=== PATIENT | female | born 1945 | race African-American/Black ===

== ENCOUNTER 2016-09-16 21:23 | Inpatient (IN) | payer OTHER ==
[~2016-09-16] VITALS: Ht 170.2 cm; Wt 59.0 kg
--- NOTE | 2016-09-16 21:23 | NUR ---
PT AUDRA ALS. TAKEN TO BED 3
[2016-09-16] MEDS ORDERED: NACL 0.9% 1,000 ML IV ONE ×3 (21:55)
--- NOTE | 2016-09-16 21:58 | NUR ---
X-Ray at bedside.
[2016-09-16 22:10] VITALS: BP 120/77
[2016-09-16 22:16] LABS: HEMATOCRIT 54.9 % (36-48); HEMOGLOBIN 17.2 g/dL (12.0-16.0); MEAN CORPUSCULAR HEMOGLOBIN 30 pg (27-31); MEAN CORPUSCULAR HGB CONC 31 g/dL (33-37); MEAN CORPUSCULAR VOLUME 94 fL (80-94); PLATELET COUNT (AUTO) 193 K/uL (140-450); RED BLOOD CELL COUNT(AUTO) 5.81 MIL/uL (4.20-5.40); RED CELL DISTRIBUTION WIDTH 13.3 % (11.6-13.7); WHITE BLOOD COUNT (AUTO) 19.6 K/uL (4.8-10.8)
--- NOTE | 2016-09-16 22:20 | NUR ---
# 5 FR Urinary catheter inserted utilizing sterile technique. NO Immediate return of urine noted. Pt tolerated procedure WELL. ER NOTIFTED.
[2016-09-16 22:32] LABS: BAND % (MANUAL) 9 % (0-8); LYMPHOCYTES % (MANUAL) 2 % (20-46); MONOCYTES % (MANUAL) 8 % (5-12); NEUTROPHILS % (MANUAL) 81 (43-65); PLATELET ESTIMATE ADEQUATE
[2016-09-16 22:41] LABS: ALANINE AMINOTRANSFERASE 53 U/L (14-59); ALBUMIN 4.9 g/dL (3.4-5.0); ALKALINE PHOSPHATASE 102 U/L (46-116); ANION GAP 28.7 (8-16); ASPARTATE AMINOTRANSFERASE 53 U/L (15-37); CALCIUM 10.8 mg/dL (8.5-10.1); CARBON DIOXIDE 18.2 mmol/L (21-32); CHLORIDE 97 mmol/L (98-107); GLUCOSE 218 mg/dL (74-106); SODIUM SERUM 141 mmol/L (136-145); THYROID STIMULATING HORMONE 2.78 uIU/mL (0.34-3.74); TOTAL PROTEIN, SERUM 9.3 g/dL (6.4-8.2)
--- NOTE | 2016-09-16 22:41 | NUR ---
Dr. Lara evaluating patient at bedside.
[2016-09-16 22:54] LABS: POTASSIUM 2.9 mmol/L (3.5-5.1); UREA NITROGEN, BLOOD 63 mg/dL (7-18)
[2016-09-16 22:55] LABS: CREATININE 6.6 mg/dL (0.6-1.3)
--- NOTE | 2016-09-16 23:38 | NUR ---
PT RESTING IN BED, NO S/S OF DSITRESS NOTED, SINUS RHYTHM, AWAKE, ALERT AND ORIENTED X4, TALKING, ON MONITOR. UNABLE TO INSERT BAZAN CATH AFTER MULTIPLE ATTEMPS. ER MD AND CHARGE NURSE MADE AWARE.
--- NOTE | 2016-09-17 00:18 | NUR ---
Note joaquin in EDM - 09/17/16 at 0023 by MEDRJJ pt unable to give ua. er md notifted. apple juice, and water given, pt aaox4, vss, resp e/u. Patient noted to have existing wounds upon arrival to ER. Photos taken of wound and placed in chart. Wound covered with dressing. Physician informed.
--- NOTE | 2016-09-17 00:20 | NUR ---
pt unable to give ua. er notifted. apple juice, and water given, pt aaox4, vss, resp e/u.
--- NOTE | 2016-09-17 00:22 | NUR ---
PT RESTING IN BED, VSS, IN RA, NO S/S OF DISTRESS NOTED.
[2016-09-17] MEDS ORDERED: cefTRIAXone 1,000 MG VIAL ONE (00:54)
--- NOTE | 2016-09-17 01:02 | NUR ---
ADMITING PHYSICIAN EVALUATING PT AT BEDSIDE. AWAKE, AND TALKING. NO S/S OF DISTRESS NOTED AT THE MOMENT. ON SECURITY VEHICLE PATROL OFFICER, SINUS TACHY 114. DENIES ANY CHEST PAIN OR SOB.
--- NOTE | 2016-09-17 01:07 | NUR ---
Patient will be admitted to care of DR SHAIKH,. Admited to TELEMETRY. Will go to room 121B. Belongings list completed. Report to SIMRAN MORALES.
[2016-09-17] MEDS ORDERED: NICOTINE TRANSD SYS 21 MG/24 HR PATCH TD SCH (01:20)
[2016-09-17] MEDS ORDERED: LORazepam 1 MG TAB PO PRN (01:20)
[2016-09-17] MEDS ORDERED: KCL 20 MEQ/WATER INJ PREMIX 200 ML IV SCH (01:20)
[2016-09-17] MEDS ORDERED: POTASSIUM CHLORIDE 10 MEQ TABER PO SCH (01:20)
--- NOTE | 2016-09-17 01:23 | NUR ---
PT TRASFERRED TO TELEMRTY FLOOR VIA GURNEY, ACCOMPANIED BY RN AND EMT. NO S/S OF DISTRESS NOTED DURING TRASFER.
--- NOTE | 2016-09-17 01:25 | NUR ---
ADMITTED 70 YEARS OLD FEMALE FROM ER VIA WHEELCHAIR FROM HOME. ADMISSION ASSESSMENT AND HISTORY NURSING. ORIENTED TO ROOM AND UNIT ROUTINES. CARE BOARD UPDATED. PLAN OF CARE DISCUSSED WITH PATIENT, VERBALIZED UNDERSTANDING WELL. CALL LIGHT WITHIN REACH.
[2016-09-17] MEDS ORDERED: MORPHINE SULFATE 2 MG/ML SYR IVP PRN (01:45)
[2016-09-17] MEDS ORDERED: DOCUSATE SODIUM 100 MG GELCAP PO PRN (01:45)
[2016-09-17] MEDS ORDERED: HYDROcodone/APAP 7.5/325 MG 1 TAB PO PRN (01:45)
[2016-09-17] MEDS ORDERED: ONDANSETRON 4 MG/2 ML VIAL IM/IVP PRN (01:45)
[2016-09-17] MEDS ORDERED: ACETAMINOPHEN 325 MG TAB PO PRN (01:45)
[2016-09-17] MEDS ORDERED: HEPARIN PER PHARMACY MC PRN (01:45)
[2016-09-17] MEDS ORDERED: hePARIN / DEXT 5% PREMIX 250 ML IV SCH (01:45)
[2016-09-17 02:10] LABS: INR 1.2 (0.8-1.2); PARTIAL THROMBOPLASTIN TIME 24.5 secs (22-35.6); PROTHROMBIN TIME 11.8 secs (10.8-13.4)
[2016-09-17 02:22] LABS: AMYLASE 72 U/L (25-115); CHOL/HDL RATIO 3.7 (1-4.5); CHOLESTEROL 193 mg/dL (<200); FREE T4 (FREE THYROXINE) 1.18 ng/dL (0.76-1.46); HDL CHOLESTEROL 52 mg/dL (40-60); LDL (CALC) 99 mg/dL (60-100); LIPASE 249 U/L (73-393); MAGNESIUM 2.1 mg/dL (1.8-2.4); TRIGLYCERIDES 210 mg/dL (30-150)
[2016-09-17] MEDS: NACL 0.9% 1,000 ML IV SCH ×2 (02:27→20:56)
[2016-09-17 02:50] LABS: ALCOHOL, BLOOD < 3 mg/dL (<3); LACTATE DEHYDROGENASE 393 U/L (81-234)
[2016-09-17] MEDS ORDERED: PNEUMOCOCCAL VACCINE 23 MCG/0.5 ML VIAL IMVAC PRN (02:50)
[2016-09-17 02:51] LABS: THYROID STIMULATING HORMONE 2.78 uIU/mL (0.34-3.74)
[2016-09-17] MEDS ORDERED: LISINOPRIL 10 MG TAB PO SCH (03:00)
[2016-09-17] MEDS ORDERED: ALUMINUM HYD/MAG/SIMETHICONE 30 ML UDC PO PRN (03:00)
[2016-09-17] MEDS ORDERED: ZOLPIDEM 5 MG TAB PO PRN (03:00)
[2016-09-17] MEDS: SIMVASTATIN 20 MG TAB PO SCH ×2 (03:00→20:56)
[2016-09-17] MEDS ORDERED: METOPROLOL 25 MG TAB PO SCH (03:00)
[2016-09-17] MEDS ORDERED: ECOTRIN 81 MG TABEC PO SCH (03:00)
[2016-09-17] MEDS ORDERED: DEXTROSE 50% 50 ML SYR IVP PRN ×2 (03:45)
[2016-09-17] MEDS ORDERED: INSULIN HUMAN REGULAR 100 UNITS in NACL 0.9% 100 ML IV SCH (03:45)
[2016-09-17] MEDS ORDERED: INSULIN LISPRO SLIDING SCALE 100 UNITS/ML VIAL SUBQ PRN ×2 (03:45→04:20)
[2016-09-17] MEDS ORDERED: BLOOD GLUCOSE MONITORING 1 DEV DEV FS SCH ×2 (03:45→07:30)
[2016-09-17] MEDS ORDERED: PANTOPRAZOLE 40 MG INJ VIAL IVP SCH (03:55)
[2016-09-17 04:11] VITALS: BP 145/76
[2016-09-17] MEDS ORDERED: POTASSIUM CHLORIDE 20% 40 MEQ/15 ML UDC PO SCH (04:35)
[2016-09-17] MEDS: LORazepam 1 MG TAB PO SCH ×3 (04:40→20:56)
[2016-09-17] MEDS ORDERED: PIPERACILLIN/TAZOBACTAM 2.25 GM VIAL IV ONE (05:36)
[2016-09-17] MEDS: BLOOD GLUCOSE MONITORING 1 DEV DEV FS SCH ×4 (05:55→21:01)
[2016-09-17] MEDS: PIPER/TAZO 2.25GM/D5W PREMIX 50 ML IV SCH ×4 (05:59→23:44)
[2016-09-17 06:16] LABS: HEMATOCRIT 48.1 % (36-48); HEMOGLOBIN 15.4 g/dL (12.0-16.0); MEAN CORPUSCULAR HEMOGLOBIN 30 pg (27-31); MEAN CORPUSCULAR HGB CONC 32 g/dL (33-37); MEAN CORPUSCULAR VOLUME 95 fL (80-94); PLATELET COUNT (AUTO) 164 K/uL (140-450); RED BLOOD CELL COUNT(AUTO) 5.06 MIL/uL (4.20-5.40); RED CELL DISTRIBUTION WIDTH 13.2 % (11.6-13.7)
--- NOTE | 2016-09-17 06:50 | NUR ---
CALLED DR. FOURNIER-RESIDENT, PATIENT HAVING LOOSE BM WITH DROPS OF BLOOD IN BEDPAN NOTED. HOLD HEPARIN FOR NOW.
[2016-09-17 07:07] LABS: ANION GAP 20.8 (8-16); CALCIUM 8.5 mg/dL (8.5-10.1); CARBON DIOXIDE 22.5 mmol/L (21-32); CHLORIDE 101 mmol/L (98-107); GLUCOSE 163 mg/dL (74-106); POTASSIUM 4.3 mmol/L (3.5-5.1); SODIUM SERUM 140 mmol/L (136-145)
[2016-09-17 07:25] LABS: UREA NITROGEN, BLOOD 61 mg/dL (7-18)
--- NOTE | 2016-09-17 07:29 | NUR ---
ENDORSED CARE AT BEDSIDE WITH DRAGAN KHALIL, PATIENT IN STABLE CONDITION.
--- NOTE | 2016-09-17 07:29 | NUR ---
RECEIVED PATIENT REPORT AT BEDSIDE FROM NIGHT NURSE. PATIENT IS ABLE TO FOLLOW COMMANDS AND IS AAOX4. PATIENT SHOWS NO S/S OF DISTRESS ON ROOM AIR. IV TO LT AC IVF'S INFUSING WELL AND L H SL. PATIENT SKIN IS INTACT WITH RASH TO THE BACK AND REDNESS. SAFETY PRECAUTIONS ENFORCED. EXPLAINED PLAIN OF CARE TO PATIENT. PATIENT VERBALIZED UNDERSTANDING. PATIENT ON TELE MONITORING. PATIENT BED IS LOWERED WITH CALL LIGHT WITHIN REACH. WILL CONTINUE TO MONITOR
[2016-09-17 07:51] LABS: MAGNESIUM 2.3 mg/dL (1.8-2.4); PHOSPHORUS 4.3 mg/dL (2.5-4.9)
[2016-09-17 07:57] LABS: BAND % (MANUAL) 8 % (0-8); NEUTROPHILS % (MANUAL) 84 (43-65)
[2016-09-17 07:58] LABS: LYMPHOCYTES % (MANUAL) 5 % (20-46); MONOCYTES % (MANUAL) 3 % (5-12); PLATELET ESTIMATE ADEQUATE
[2016-09-17 08:00] VITALS: BP 98/54
--- NOTE | 2016-09-17 08:00 | NUR ---
PER LANDING SCALER PATIENT IS VERY WEAK WHEN ASSISTING TO THE BSC. WILL ASSESS AMB ON NEXT BM.
--- NOTE | 2016-09-17 08:30 | NUR ---
PATIENT STATES SHE HAS NO URINATED IN 5 DAYS AND SAYS SHE FEELS THE URGE TO GO BUT HAS NO BEEN ABLE TO. PATIENT ASSISTED ON THE BED [place]. WILL CONTINUE TO MONITOR.
--- NOTE | 2016-09-17 08:52 | NUR ---
PATIENT HAS BEEN SCREENED AND CATEGORIZED HIGH NUTRITION RISK. PATIENT WILL BE SEEN WITHIN 1-2 DAYS OF ADMISSION. 09/17/16-09/18/[address]
[2016-09-17] MEDS ORDERED: THIAMINE 100 MG TAB PO SCH (09:00)
[2016-09-17] MEDS ORDERED: MULTIVITAMIN 1 TAB PO SCH (09:00)
[2016-09-17] MEDS ORDERED: FOLIC ACID 1 MG TAB PO SCH (09:00)
[2016-09-17] MEDS: LACTOBACILLUS RHAMNOSUS GG 1 EACH CAP PO SCH (09:06)
[2016-09-17] MEDS: CALCIUM ACETATE 667 MG TAB PO SCH ×2 (09:06→17:02)
--- NOTE | 2016-09-17 09:06 | NUR ---
ADMINISTERED SCHEDULED MEDICATIONS. PATIENT TOLERATED ACTIVITY WELL. PT BLOOD PRESSURE IS 98/54. WILL CONTINUE TO MONITOR.
[2016-09-17] MEDS: ESCITALOPRAM 20 MG TAB PO SCH (09:07)
[2016-09-17] MEDS: VIT-B COMP/VIT-C/FOLIC ACID 1 TAB PO SCH (09:07)
--- NOTE | 2016-09-17 09:30 | NUR ---
PATIENT ASSISTED TO THE BSC. PATIENT HAS LOOSE STOOL AND NOTICEABLE BLOOD. WILL NOTIFY DR. FOURNIER.
[2016-09-17 09:36] LABS: INR 1.2 (0.8-1.2); PROTHROMBIN TIME 11.9 secs (10.8-13.4)
[2016-09-17 09:50] LABS: PARTIAL THROMBOPLASTIN TIME 110.5 secs (22-35.6)
--- NOTE | 2016-09-17 11:30 | NUR ---
PATIENT BEING SEEN BY FIELD ENGINEER. PATIENT SHOWS NO S/S OF DISTRESS ON ROOM AIR.
[2016-09-17 12:00] VITALS: BP 99/49
--- NOTE | 2016-09-17 12:22 | NUR ---
09/17/16 RD INITIAL ASSESSMENT COMPLETED PLEASE REFER TO NUTRITION ASSESSMENT UNDER CARE ACTIVITY FOR ESTIMATED NUTRITIONAL NEEDS. 1. CONTINUE MECHANICAL SOFT, 60GM CONSISTENT CARBOHYDRATE DIET 2. RECOMMEND HEALTHSHAKE BID DURING MEAL TIMES 3. RD TO FOLLOW-UP 2-3 DAYS; HIGH RISK TAL SAUL, CRYSTAL
--- NOTE | 2016-09-17 12:45 | NUR ---
PATIENT SEEN BY DR FOURNIER. DR AWARE OF LOW BP ORDERS TO CONTINUE MONITORING. PATIENTS SHOWS NO S/S OF DISTRESS ON ROOM AIR. WILL CONTINUE TO MONITOR.
[2016-09-17 12:51] LABS: INR 1.1 (0.8-1.2); PARTIAL THROMBOPLASTIN TIME 31.9 secs (22-35.6); PROTHROMBIN TIME 11.3 secs (10.8-13.4)
--- NOTE | 2016-09-17 13:30 | NUR ---
PT BP 101/49 WILL CONTINUE TO MONITOR.
--- NOTE | 2016-09-17 14:53 | NUR ---
PATIENT IS SLEEPING AND SHOW NO S/S OF DISTRESS ON ROOM AIR. WILL CONTINUE TO MONITOR.
[2016-09-17 16:00] VITALS: BP 104/48
--- NOTE | 2016-09-17 17:15 | NUR ---
PT IS SLEEPING AND SHOWS NO S/S OF DISTRESS ON ROOM AIR. PATIENT IS EASILY AROUSABLE.
[2016-09-17 18:50] LABS: INR 1.1 (0.8-1.2); PARTIAL THROMBOPLASTIN TIME 25.8 secs (22-35.6)
--- NOTE | 2016-09-17 19:15 | NUR ---
RECEIVED REPORT FROM SIMRAN BOURNE. INITIAL ASSESSMENT COMPLETED. PT AAOX4. PT HAS REDNESS ON SACRAL AREA. PT HAS IV ON LEFT AC G 20; INFUSING FLUIDS WELL. PT HAS USES BEDSIDE COMMODE WITH ASSISTANCE. PT ORIENTED PT TO ROOM AND SURROUNDINGS AND USE OF CALL LIGHT. EXPLAINED PLAN OF CARE TO PT AND SHE VERBALIZES UNDERSTANDING. CALL LIGHT WITHIN REACH.
--- NOTE | 2016-09-17 19:25 | NUR ---
PT WAS ASSISTED TO THE BSC. PT IS AWARE TO USE CALL LIGHT WHEN DONE. IV ON THE L H WITH IVF'S INFUSING WELL. PATIENT REPORT WAS GIVEN AT BEDSIDE TO NIGHT NURSE. PATIENT ENDORSED IN STABLE CONDITION.
[2016-09-17 20:00] VITALS: BP 117/61
[2016-09-17] MEDS: MINERAL OIL TP SCH (20:58)
[2016-09-17] MEDS: [UNRECOGNIZED DRUG - OTHER] TP SCH (20:58)
[2016-09-17] MEDS ORDERED: MINERAL OIL/PETROLIUM 57 GM TUBE TP SCH (21:00)
[2016-09-17] MEDS ORDERED: OXYBUTYNIN 5 MG TAB PO SCH (21:00)
--- NOTE | 2016-09-17 21:04 | NUR ---
PT TOLERATED 2100 MEDS WELL. WILL CONTINUE TO MONITOR PT.
--- NOTE | 2016-09-17 21:50 | NUR ---
PT HAS SCDS ON.
--- NOTE | 2016-09-17 23:56 | NUR ---
0000 ZOSYN INFUSING NOW. PT STABLE, WILL CONTINUE TO MONITOR PT.
[2016-09-18] VITALS: BP 105/51
--- NOTE | 2016-09-18 00:34 | NUR ---
THERE IS AN ORDER FOR INSERTING A BAZAN CATHETER. I TRIED ALONG WITH EXTENSION SERVICE SPECIALIST IN CHARGE TO INSERT BAZAN CATHETER BUT THERE IS RESISTANCE AND BAZAN CATHETER WOULD NOT GO IN. DR. ARCHER AWARE. NO NEW ORDERS. WILL CONTINUE TO MONITOR PT.
--- NOTE | 2016-09-18 00:38 | NUR ---
UNABLE TO COLLECT URINE DUE TO PT NOT VOIDING; AND UNABLE TO PLACED IN BAZAN CATHETER DUE TO RESISTANCE.
[2016-09-18 00:45] LABS: INR 1.1 (0.8-1.2); PROTHROMBIN TIME 11.3 secs (10.8-13.4)
[2016-09-18 00:46] LABS: PARTIAL THROMBOPLASTIN TIME 26.5 secs (22-35.6)
--- NOTE | 2016-09-18 02:49 | NUR ---
PT STATED THAT SHE HAD THE URGE TO VOID, PROVIDED HER WITH BEDPAN BUT DID NOT VOID. PT HAD A SMALL WATERY BOWEL MOVEMENT. PROVIDED JAN CARE, WILL CONTINUE TO MONITOR PT.
[2016-09-18 04:00] VITALS: BP 111/63
--- NOTE | 2016-09-18 04:23 | NUR ---
CHECKED ON PT. 0400 VS STABLE. PT DENIES DISCOMFORT OR PAIN. CALL LIGHT WITHIN REACH.
[2016-09-18] MEDS: PIPER/TAZO 2.25GM/D5W PREMIX 50 ML IV SCH (05:17)
[2016-09-18] MEDS: LORazepam 1 MG TAB PO SCH ×3 (05:18→20:18)
--- NOTE | 2016-09-18 05:20 | NUR ---
AM MEDS GIVEN. PT'S LINEN CHANGED. PT HELPED TO REPOSITION FOR COMFORT. WILL CONTINUE TO MONITOR PT.
[2016-09-18] MEDS: BLOOD GLUCOSE MONITORING 1 DEV DEV FS SCH ×4 (06:21→20:20)
[2016-09-18 07:07] LABS: HEMATOCRIT 37.5 % (36-48); HEMOGLOBIN 12.3 g/dL (12.0-16.0); MEAN CORPUSCULAR HEMOGLOBIN 31 pg (27-31); MEAN CORPUSCULAR HGB CONC 33 g/dL (33-37); MEAN CORPUSCULAR VOLUME 95 fL (80-94); PLATELET COUNT (AUTO) 138 K/uL (140-450); RED BLOOD CELL COUNT(AUTO) 3.97 MIL/uL (4.20-5.40); RED CELL DISTRIBUTION WIDTH 13.2 % (11.6-13.7); WHITE BLOOD COUNT (AUTO) 10.1 K/uL (4.8-10.8)
[2016-09-18 07:15] LABS: ANION GAP 15.1 (8-16); CALCIUM 8.2 mg/dL (8.5-10.1); CARBON DIOXIDE 22.4 mmol/L (21-32); CHLORIDE 106 mmol/L (98-107); CREATININE 3.7 mg/dL (0.6-1.3); GLUCOSE 91 mg/dL (74-106); POTASSIUM 3.5 mmol/L (3.5-5.1); SODIUM SERUM 140 mmol/L (136-145); UREA NITROGEN, BLOOD 56 mg/dL (7-18)
--- NOTE | 2016-09-18 07:25 | NUR ---
ENDORSED PLAN OF CARE TO DAY SHIFT NURSE. PT IN STABLE CONDITION.
--- NOTE | 2016-09-18 07:26 | NUR ---
RECEIVED PT FROM MALTED MILK MASHER NURSE AT BEDSIDE. PT IS SLEEPING. PT HAS IV ON L AC 20G RUNNING NS@120 AND L HAND 22 G SL. PT HAS SCDS ON. PT HAS A BEDSIDE COMMODE. BED ALARM ON. CALL LIGHT WITHIN REACH. WILL CONTINUE TO MONITOR.
[2016-09-18 07:29] LABS: BAND % (MANUAL) 4 % (0-8); LYMPHOCYTES % (MANUAL) 15 % (20-46); MONOCYTES % (MANUAL) 9 % (5-12); NEUTROPHILS % (MANUAL) 72 (43-65)
[2016-09-18 08:00] VITALS: BP 92/45
[2016-09-18 08:17] LABS: HEMOGLOBIN A1C 5.1 % (4.8-5.6); T4 (THYROXINE) 6.5 ug/dL (4.5-12.0)
[2016-09-18] MEDS ORDERED: TAMSULOSIN 0.4 MG CAP PO SCH (08:30)
[2016-09-18] MEDS: MULTIVIT/MIN/CA/FE/FA 1 TAB PO SCH (09:22)
[2016-09-18] MEDS: NICOTINE TRANSD SYS 21 MG/24 HR PATCH TD SCH (09:22)
[2016-09-18] MEDS: LACTOBACILLUS RHAMNOSUS GG 1 EACH CAP PO SCH (09:23)
[2016-09-18] MEDS: ESCITALOPRAM 20 MG TAB PO SCH (09:23)
[2016-09-18] MEDS: FOLIC ACID 1 MG TAB PO SCH (09:24)
[2016-09-18] MEDS: ASPIRIN 81 MG TAB.CHEW PO SCH (09:24)
[2016-09-18] MEDS: THIAMINE 100 MG TAB PO SCH (09:25)
[2016-09-18] MEDS: VIT-B COMP/VIT-C/FOLIC ACID 1 TAB PO SCH (09:25)
[2016-09-18] MEDS: NACL 0.9% 1,000 ML IV SCH ×3 (09:25→22:24)
[2016-09-18] MEDS: MINERAL OIL TP SCH ×2 (09:26→20:18)
[2016-09-18] MEDS: [UNRECOGNIZED DRUG - OTHER] TP SCH ×2 (09:26→20:18)
--- NOTE | 2016-09-18 09:30 | NUR ---
HELPED PT USE BEDSIDE COMMODE. PT GAIT WEAK BUT TOLERATED WELL. STILL HAS DIARRHEA. CALL LIGHT WITHIN REACH. WILL CONTINUE TO MONITOR.
[2016-09-18] MEDS ORDERED: Z-GUARD PASTE TP PRN (10:15)
--- NOTE | 2016-09-18 10:30 | NUR ---
BLADDER SCAN 418ML.
--- NOTE | 2016-09-18 11:30 | NUR ---
BLADDER SCAN [address] FOURNIER IS AWARE.
[2016-09-18 12:00] VITALS: BP 107/55
--- NOTE | 2016-09-18 12:56 | NUR ---
PT GOT UP TO USE BEDSIDE COMMODE. TOLERATED WELL. CALL LIGHT WITHIN REACH. WILL CONTINUE TO MONITOR.
[2016-09-18] MEDS ORDERED: PIPER/TAZO 2.25GM/D5W PREMIX 50 ML IV SCH (13:00)
--- NOTE | 2016-09-18 14:29 | NUR ---
PHYSICAL THERAPY WORKED WITH PT. PT TOLERATED WELL. CALL LIGHT WITHIN REACH. WILL CONTINUE TO MONITOR.
[2016-09-18 16:00] VITALS: BP 95/50
--- NOTE | 2016-09-18 16:00 | NUR ---
PT STOOD UP WITHOUT USING CALL CORDERO. BED ALARM WENT OFF. HELPED PT TO BEDSIDE COMMODE. REEDUCATED PT IN USING CALL LIGHT. PT VERBALIZED UNDERSTANDING. WILL MONITOR CLOSELY.
--- NOTE | 2016-09-18 16:30 | NUR ---
PHYSICAL THERAPY CO-SIGN The Physical Therapy Progress Notes documented by Transcription have been reviewed. Reviewed/Co-Signed by: Bita Wei PT Documentation Done by:PEREZ BIRD LEATHER STITCHER POC REVIEWED W/ LEATHER STITCHER; PROGRESS DEANGELO; WILL BENEFIT W/ P.T. AFTER ACUTE STAY. Addendum: 09/18/16 at 1630 by Bita Wei PT Amended: Links added.
--- NOTE | 2016-09-18 18:13 | NUR ---
PT IS RESTING IN BED COMFORTABLY. NO COMPLAINTS AT THIS TIME. CALL LIGHT WITHIN REACH. WILL CONTINUE TO MONITOR.
--- NOTE | 2016-09-18 19:25 | NUR ---
RECEIVED REPORT FROM SIMRAN OCONNOR. INITIAL ASSESSMENT COMPLETED. PT AAOX4. PT HAS REDNESS ON SACRAL AREA. PT HAS IV ON LEFT AC G 20; INFUSING FLUIDS WELL. PT HAS SCDS ON. PT USES BEDSIDE COMMODE WITH ASSISTANCE. ORIENTED PT TO ROOM AND SURROUNDINGS AND USE OF CALL LIGHT. SAFETY/FALL RISK PRECAUTIONS IN PLACE. PT EATING DINNER AT THIS TIME. EXPLAINED PLAN OF CARE TO PT AND SHE VERBALIZES UNDERSTANDING. CALL LIGHT WITHIN REACH.
--- NOTE | 2016-09-18 19:34 | NUR ---
ENDORSED CARE OF PT TO HAND RUG CLEANER NURSE AT BEDSIDE. PT IN STABLE CONDITION.
[2016-09-18 20:00] VITALS: BP 109/61
[2016-09-18] MEDS: SIMVASTATIN 20 MG TAB PO SCH (20:18)
--- NOTE | 2016-09-18 20:20 | NUR ---
PT TOLERATED 2100 MEDS WELL, CALL LIGHT WITHIN REACH.
--- NOTE | 2016-09-18 22:04 | NUR ---
DR. KAT AT BEDSIDE. DR. KAT PUT IN A BAZAN CATHETER. PT TOLERATED IT WELL. URINE COLLECTED AND SENT TO LAB. WILL CONTINUE TO MONITOR PT. Addendum: 09/19/16 at 0000 by Stephani Bland RN DR. KAT INSERTED A 16 F BAZAN CATHETER; URINE RETURN NOTICED OF 300 ML. WILL CONTINUE TO MONITOR PT.
[2016-09-18 22:33] LABS: APPEARANCE,URINE SL CLOUDY (CLEAR); BILIRUBIN,URINE 1+ (NEGATIVE); BLOOD, URINE 2+ (NEGATIVE); COLOR,URINE YELLOW (YELLOW); LEUKOCYTE ESTERASE ,URINE NEGATIVE (NEGATIVE); NITRITE, URINE NEGATIVE (NEGATIVE); PROTEIN,URINE TRACE (NEGATIVE); UGLUCOSE NEGATIVE (NEGATIVE); UROBILINOGEN,URINE 0.2 EU/dL (0.2 - 1)
[2016-09-18 22:42] LABS: AMPHETAMINE, URINE NEG. ng/ml (NEG <=1000); BARBITURATE, URINE NEG. ng/ml (NEG <=200); BENZODIAZEPINE, URINE NEG. ng/mL (NEG <=200); CANNABINOID, URINE NEG. ng/mL (NEG <=50); COCAINE, URINE NEG. ng/mL (NEG <=300); OPIATE, URINE NEG. ng/mL (NEG <=2000); PHENCYCLIDINE SCREEN,URINE NEG. ng/mL (NEG <=25)
--- NOTE | 2016-09-18 23:56 | NUR ---
CHECKED VS; PT STABLE, PT DENIES PAIN/DISCOMFORT PT HAS 600ML OF URINE IN THE BAZAN BAG. WILL CONTINUE TO MONITOR PT.
[2016-09-19] VITALS: BP 120/63
[2016-09-19 00:06] LABS: ICTOTEST NEGATIVE (NEGATIVE)
[2016-09-19 00:07] LABS: BACTERIA,URINE None Seen /HPF (None Seen); MUCUS,URINE 2+ /LPF (None Seen); RBC,URINE 0-5 (RARE) /HPF (0-5); SQUAMOUS EPITHELIAL CELL,UR 0-3 (FEW) /LPF (0-3 (FEW)); URINE AMORPHOUS URATE 1+ /HPF (None Seen); WBC,URINE 0-5 (RARE) /HPF (0-5)
--- NOTE | 2016-09-19 01:25 | NUR ---
PT SLEEPING COMFORTABLY NO SIGNS OF DISTRESS NOTED. WILL CONTINUE TO MONITOR PT.
--- NOTE | 2016-09-19 03:30 | NUR ---
PT REQUESTING A BLANKET; SHE STATED THAT SHE IS COLD. TOOK HER TEMPERATURE AND IT IS 98.3. WILL CONTINUE TO MONITOR PT.
[2016-09-19 04:00] VITALS: BP 118/65
[2016-09-19 05:51] LABS: BASOPHILS # (AUTO) 0.3 K/uL (0.00-0.22); BASOPHILS % (AUTO) 3.6 % (0.0-2.0); EOSINOPHILS # (AUTO) 0.1 K/uL (0-0.4); EOSINOPHILS % (AUTO) 1.2 % (0.0-4.0); HEMATOCRIT 34.9 % (36-48); HEMOGLOBIN 10.9 g/dL (12.0-16.0); LYMPHOCYTES # (AUTO) 1.9 K/uL (2.5-16.5); LYMPHOCYTES % (AUTO) 20.7 % (20.5-51.1); MEAN CORPUSCULAR HEMOGLOBIN 30 pg (27-31); MEAN CORPUSCULAR HGB CONC 31 g/dL (33-37); MEAN CORPUSCULAR VOLUME 96 fL (80-94); MONOCYTES # (AUTO) 0.7 K/uL (0.8-1.0); MONOCYTES % (AUTO) 7.9 % (1.7-9.3); NEUTROPHILS # (AUTO) 6.3 K/uL (1.8-7.7); NEUTROPHILS % (AUTO) 66.6 % (42.2-75.2); PLATELET COUNT (AUTO) 150 K/uL (140-450); RED BLOOD CELL COUNT(AUTO) 3.65 MIL/uL (4.20-5.40); RED CELL DISTRIBUTION WIDTH 13.3 % (11.6-13.7); WHITE BLOOD COUNT (AUTO) 9.3 K/uL (4.8-10.8)
[2016-09-19] MEDS: NACL 0.9% 1,000 ML IV SCH ×3 (06:00→17:41)
[2016-09-19] MEDS: LORazepam 1 MG TAB PO SCH ×3 (06:00→20:59)
--- NOTE | 2016-09-19 06:02 | NUR ---
PT TOLERATED MORNING MED WELL. WILL CONTINUE TO MONITOR PT.
[2016-09-19 06:04] LABS: ANION GAP 13.4 (8-16); CALCIUM 7.7 mg/dL (8.5-10.1); CHLORIDE 112 mmol/L (98-107); CREATININE 1.8 mg/dL (0.6-1.3); GLUCOSE 81 mg/dL (74-106); POTASSIUM 3.4 mmol/L (3.5-5.1); SODIUM SERUM 143 mmol/L (136-145); UREA NITROGEN, BLOOD 37 mg/dL (7-18)
[2016-09-19 06:09] LABS: MAGNESIUM 1.8 mg/dL (1.8-2.4); PHOSPHORUS 2.4 mg/dL (2.5-4.9)
--- NOTE | 2016-09-19 07:50 | NUR ---
ENDORSED PLAN OF CARE TO SIMRAN OCONNOR. BRII IN STABLE CONDITION.
[2016-09-19] MEDS: BLOOD GLUCOSE MONITORING 1 DEV DEV FS SCH ×4 (07:51→21:07)
--- NOTE | 2016-09-19 07:51 | NUR ---
RECEIVED CARE OF PT FROM PSYCHIATRY PHYSICIAN NURSE AT BEDSIDE. PT IS SLEEPING. PT HAS BAZAN CATH IN PLACE. PT HAS IV ON L AC 20G SL AND L HAND 22 G RUNNING NS@150ML/HR. NO DISTRESS NOTED. BED ALARM ON. SCDS ON. CALL LIGHT WITHIN REACH. WILL CONTINUE TO MONITOR.
[2016-09-19 08:00] VITALS: BP 126/62
[2016-09-19] MEDS: LACTOBACILLUS RHAMNOSUS GG 1 EACH CAP PO SCH (08:56)
[2016-09-19] MEDS: VIT-B COMP/VIT-C/FOLIC ACID 1 TAB PO SCH (08:56)
[2016-09-19] MEDS: MULTIVIT/MIN/CA/FE/FA 1 TAB PO SCH (08:56)
[2016-09-19] MEDS: ESCITALOPRAM 20 MG TAB PO SCH (08:57)
[2016-09-19] MEDS: FOLIC ACID 1 MG TAB PO SCH (08:58)
[2016-09-19] MEDS: ASPIRIN 81 MG TAB.CHEW PO SCH (08:58)
[2016-09-19] MEDS: NICOTINE TRANSD SYS 21 MG/24 HR PATCH TD SCH (08:58)
[2016-09-19] MEDS: MINERAL OIL TP SCH ×2 (08:58→21:00)
[2016-09-19] MEDS: THIAMINE 100 MG TAB PO SCH (08:58)
[2016-09-19] MEDS: [UNRECOGNIZED DRUG - OTHER] TP SCH ×2 (08:58→21:00)
--- NOTE | 2016-09-19 09:20 | NUR ---
PT TOLERATED MORNING MEDS WELL. NO COMPLAINTS AT THIS TIME. CALL LIGHT WITHIN REACH. WILL CONTINUE TO MONITOR.
[2016-09-19 09:26] LABS: APPEARANCE,URINE CLEAR (CLEAR); BILIRUBIN,URINE NEGATIVE (NEGATIVE); BLOOD, URINE 3+ (NEGATIVE); COLOR,URINE YELLOW (YELLOW); LEUKOCYTE ESTERASE ,URINE NEGATIVE (NEGATIVE); NITRITE, URINE NEGATIVE (NEGATIVE); PH,URINE 5.5 (5.0-9.0); PROTEIN,URINE NEGATIVE (NEGATIVE); UGLUCOSE NEGATIVE (NEGATIVE); UROBILINOGEN,URINE 0.2 EU/dL (0.2 - 1)
[2016-09-19 09:35] LABS: RBC,URINE 20-25 /HPF (0-5); WBC,URINE 0-5 (RARE) /HPF (0-5)
[2016-09-19 09:36] LABS: BACTERIA,URINE OCCASSIONAL /HPF (None Seen); MUCUS,URINE RARE /LPF (None Seen); SQUAMOUS EPITHELIAL CELL,UR 0-3 (FEW) /LPF (0-3 (FEW))
--- NOTE | 2016-09-19 10:41 | NUR ---
SPOKE WITH PATIENT'S SON, LISA. HE SAID THE PATIENT SIGNS FOR HERSELF AND IS IN AGREEMENT FOR PATIENT TO GO TO SNF IF NEEDED. HE SAID HE HAD NO PERFERENCE. HE SAID HIS SISTER, LORI , IS LOOKING TO GET THE PATIENT A SECONDARY INSURANCE.
[2016-09-19] MEDS ORDERED: POTASSIUM CHL 40 MEQ/ D5-1/2NS 1,000 ML IV SCH (10:45)
--- NOTE | 2016-09-19 11:03 | NUR ---
HELPED PT USE BEDSIDE COMMODE. CALL LIGHT WITHIN REACH. WILL CONTINUE TO MONITOR.
--- NOTE | 2016-09-19 11:40 | NUR ---
Social Service Note: I met with patient at bedside to discuss discharge plan. She stated she is in agreement with short term placement for physical therapy. I inquired if she had a snf preference, she stated she preferred a snf located in [place], [place] with small number of beds, I informed her [facility] has 58 beds in their facility and would contact them. She verbalized understanding and thanked me.
[2016-09-19 12:00] VITALS: BP 129/65
[2016-09-19] MEDS: SODIUM PHOS / POTASSIUM PHOS 1 PKT PDR PO SCH ×2 (12:01→17:40)
[2016-09-19] MEDS ORDERED: KCL 20 MEQ/WATER INJ PREMIX 200 ML IV SCH (12:30)
--- NOTE | 2016-09-19 13:00 | NUR ---
PT SAT UP IN BED TO EAT LUNCH. TOLERATED WELL. CALL LIGHT WITHIN REACH. WILL CONTINUE TO MONITOR.
--- NOTE | 2016-09-19 13:41 | NUR ---
Social Service Note: Per Sugar from [facility] , patient has been accepted, she stated she is going to come and meet patient today. I met with patient at bedside, informed her she has been accepted at [facility] and inquired if it would be okay to have admission coordinator Sugar from [facility] meet with her, she stated she would like to meet with Sugar.
--- NOTE | 2016-09-19 13:48 | NUR ---
09/19/16 RD FOLLOW-UP ASSESSMENT COMPLETED PLEASE REFER TO NUTRITION ASSESSMENT UNDER CARE ACTIVITY FOR ESTIMATED NUTRITIONAL NEEDS. 1. CONTINUE 60G CONSISTENT CARBOHYDRATE, MECHANICAL SOFT DIET + DIET HEALTH SHAKE TID 2. RD TO FOLLOW-UP 3-5 DAYS; MODERATE RISK TAL SAUL, CRYSTAL
--- NOTE | 2016-09-19 15:00 | NUR ---
PT IS RESTING COMFORTABLY IN BED. NO DISTRESS NOTED. CALL LIGHT WITHIN REACH. WILL CONTINUE TO MONITOR.
[2016-09-19 16:00] VITALS: BP 137/65
--- NOTE | 2016-09-19 16:30 | NUR ---
PT'S SON CAME TO VISIT. CALL LIGHT WITHIN REACH. WILL CONTINUE TO MONITOR.
--- NOTE | 2016-09-19 17:59 | NUR ---
PT SAT UP IN BED TO EAT DINNER. TOLERATING WELL. CALL LIGHT WITHIN REACH. WILL CONTINUE TO MONITOR.
--- NOTE | 2016-09-19 19:30 | NUR ---
ENDORSED CARE OF PT TO HOT WOUND SPRING PRODUCTION SUPERVISOR NURSE AT BEDSIDE. PT IN STABLE CONDITION.
--- NOTE | 2016-09-19 19:31 | NUR ---
RECEIVED REPORT FROM AM NURSE. PT RESTING IN BED, AOX4, ABLE TO VERBALIZE NEEDS. PT DENIES CHEST PAIN, SOB OR S/S OF ACUTE DISTRESS. PT HAS BEDSIDE COMMODE, PT REPORTS HAVING FREQ DIARRHEA. LEAD MEDICAL TECHNOLOGIST IN PLACE. BAZAN CATH IN PLACE, DRAINING CLEAR BROOKE URINE. REDNESS NOTED ON JAN AREA, WILL APPLY Z-GUARD. IV ACCESS ASYMPTOMATIC, PATENT AND INTACT. IVF INFUSING WELL. DISCUSSED AND REVIEWED PLAN OF CARE WITH PT. PT VERBALIZED UNDERSTANDING. SAFETY MEASURES ENSURED. CALL LIGHT WITHIN REACH. WILL CONTINUE TO MONITOR.
[2016-09-19 20:00] VITALS: BP 136/67
[2016-09-19] MEDS: SIMVASTATIN 20 MG TAB PO SCH (20:59)
--- NOTE | 2016-09-19 21:00 | NUR ---
PT C/O PAIN AND DISCOMFORT AT JAN AREA AND BAZAN SITE. BAZAN CATH IS ASYMPTOMATIC, DRAINING CLEAR BROOKE URINE WELL. ADMINISTERED TYLENOL ORDERED. PT VERBALIZED UNDERSTANDING, TOLERATED WELL.
--- NOTE | 2016-09-19 21:07 | NUR ---
BLOOD SUGAR 78, CONDITION STABLE, NO S/S OF HYPOGLYCEMIA. EVENING SNACKS AND JUICE PROVIDED. ADMINISTERED DUE MEDICATIONS WITH EDUCATION. PT VERBALIZED UNDERSTANDING. ASSISTED PT TO BEDSIDE COMMODE. PT ABLE TO AMBULATE TO BEDSIDE COMMODE WITH 1 PERSON ASSIST AND MODERATE ASSISTANCE. ASSISTED BACK TO BED, TOLERATED WELL. ALL NEEDS MET. IVF INFUSING WELL. SAFETY MEASURES ENSURED. CALL LIGHT WITHIN REACH. WILL CONTINUE TO MONITOR.
[2016-09-20] VITALS: BP 134/68
[2016-09-20] MEDS: SODIUM PHOS / POTASSIUM PHOS 1 PKT PDR PO SCH ×4 (00:02→17:06)
--- NOTE | 2016-09-20 00:02 | NUR ---
ADMINISTERED DUE MEDICATION WITH EDUCATION. PT VERBALIZED UNDERSTANDING, TOLERATED MED WELL. SAFETY MEASURES ENSURED. CALL LIGHT WITHIN REACH.
[2016-09-20] MEDS: NACL 0.9% 1,000 ML IV SCH ×2 (00:40→09:14)
--- NOTE | 2016-09-20 00:40 | NUR ---
PT C/O INSOMNIA. ADMINISTERED AMBIEN ORDERED WITH EDUCATION. PT VERBALIZED UNDERSTANDING, TOLERATED MED WELL. SAFETY MEASURES ENSURED. CALL LIGHT WITHIN REACH.
[2016-09-20 04:00] VITALS: BP 147/69
[2016-09-20] MEDS: LORazepam 1 MG TAB PO SCH ×3 (04:48→20:11)
--- NOTE | 2016-09-20 04:48 | NUR ---
PT SLEEPING, BUT AROUSABLE. ADMINISTERED SCHEDULED ATIVAN PO WITH EDUCATION. PT VERBALIZED UNDERSTANDING, TOLERATED WELL. CONDITION STABLE. ALL NEEDS MET. SAFETY MEASURES ENSURED. CALL LIGHT WITHIN REACH.
[2016-09-20 06:40] LABS: BASOPHILS # (AUTO) 0.4 K/uL (0.00-0.22); BASOPHILS % (AUTO) 4.5 % (0.0-2.0); EOSINOPHILS # (AUTO) 0.1 K/uL (0-0.4); EOSINOPHILS % (AUTO) 1.5 % (0.0-4.0); HEMATOCRIT 34.4 % (36-48); HEMOGLOBIN 10.8 g/dL (12.0-16.0); LYMPHOCYTES # (AUTO) 2.3 K/uL (2.5-16.5); MEAN CORPUSCULAR HEMOGLOBIN 30 pg (27-31); MEAN CORPUSCULAR HGB CONC 32 g/dL (33-37); MEAN CORPUSCULAR VOLUME 97 fL (80-94); MONOCYTES # (AUTO) 0.5 K/uL (0.8-1.0); MONOCYTES % (AUTO) 5.7 % (1.7-9.3); NEUTROPHILS # (AUTO) 5.1 K/uL (1.8-7.7); NEUTROPHILS % (AUTO) 61.3 % (42.2-75.2); PLATELET COUNT (AUTO) 172 K/uL (140-450); RED BLOOD CELL COUNT(AUTO) 3.57 MIL/uL (4.20-5.40); RED CELL DISTRIBUTION WIDTH 13.5 % (11.6-13.7); WHITE BLOOD COUNT (AUTO) 8.4 K/uL (4.8-10.8)
[2016-09-20] MEDS: BLOOD GLUCOSE MONITORING 1 DEV DEV FS SCH ×4 (07:03→20:10)
[2016-09-20 07:09] LABS: ANION GAP 11.3 (8-16); CALCIUM 7.6 mg/dL (8.5-10.1); CARBON DIOXIDE 22.1 mmol/L (21-32); CHLORIDE 114 mmol/L (98-107); CREATININE 1.1 mg/dL (0.6-1.3); GLUCOSE 92 mg/dL (74-106); POTASSIUM 4.4 mmol/L (3.5-5.1); SODIUM SERUM 143 mmol/L (136-145); UREA NITROGEN, BLOOD 21 mg/dL (7-18)
--- NOTE | 2016-09-20 07:30 | NUR ---
ENDORSED PLAN OF CARE TO AM NURSE. CONDITION STABLE.
--- NOTE | 2016-09-20 07:31 | NUR ---
PT AWAKE AND ALERT, NO SIGNS OF ACUTE DISTRESS. BOWEL SOUNDS ACTIVE IN ALL 4 QUADRANTS. SKIN INTACT WITH PERINEAL REDNESS. AMBULATORY, USES BEDSIDE COMMODE. BOWEL AND BLADDER CONTINENCE WITH URINARY RETENTION, BAZAN CATHETER IN PLACE. NO COMPLAINT OF PAIN AT THIS TIME. BED IN LOW POSITION WITH BILATERAL HALF SIDE RAILS UP, CALL LIGHT WITHIN REACH.
[2016-09-20 08:00] VITALS: BP 157/77
[2016-09-20] MEDS: MULTIVIT/MIN/CA/FE/FA 1 TAB PO SCH (09:00)
[2016-09-20] MEDS: VIT-B COMP/VIT-C/FOLIC ACID 1 TAB PO SCH (09:14)
[2016-09-20] MEDS: ESCITALOPRAM 20 MG TAB PO SCH (09:14)
[2016-09-20] MEDS: ASPIRIN 81 MG TAB.CHEW PO SCH (09:14)
[2016-09-20] MEDS: LACTOBACILLUS RHAMNOSUS GG 1 EACH CAP PO SCH (09:15)
[2016-09-20] MEDS: NICOTINE TRANSD SYS 21 MG/24 HR PATCH TD SCH (09:15)
[2016-09-20] MEDS: THIAMINE 100 MG TAB PO SCH (09:15)
[2016-09-20] MEDS: FOLIC ACID 1 MG TAB PO SCH (09:15)
[2016-09-20] MEDS: MINERAL OIL TP SCH ×2 (09:24→20:12)
[2016-09-20] MEDS: [UNRECOGNIZED DRUG - OTHER] TP SCH ×2 (09:24→20:12)
--- NOTE | 2016-09-20 10:00 | NUR ---
RECEIVED NEW ORDERS TO D/C BAZAN, NOTED AND CARRIED OUT. WILL PROCEED WITH BLADDER TRAINING ORDERED.
[2016-09-20 12:00] VITALS: BP 132/63
[2016-09-20 16:00] VITALS: BP 140/68
--- NOTE | 2016-09-20 19:28 | NUR ---
RECEIVED REPORT FROM AM NURSE. PT ASSISTED TO BEDSIDE COMMODE BY JULIAN, PT REPORTS STILL HAVING DIARRHEA. PT ASSIST BACK TO BED, AOX4, ABLE TO VERBALIZE NEEDS. PT DENIES CHEST PAIN, SOB OR S/S OF ACUTE DISTRESS. REDNESS NOTED ON JAN AREA, WILL APPLY Z-GUARD. IV ACCESS ASYMPTOMATIC, PATENT AND INTACT. SALINE LOCKED AT THIS TIME. DISCUSSED AND REVIEWED PLAN OF CARE WITH PT. PT INSTRUCTED FOR BLADDER TRAINING. PT VERBALIZED UNDERSTANDING. SAFETY MEASURES ENSURED. CALL LIGHT WITHIN REACH. WILL CONTINUE TO MONITOR. Addendum: 09/20/16 at 2013 by Vj Keen RN PT REPORTS TO HAVE LITTLE URINE OUTPUT.
[2016-09-20 20:00] VITALS: BP 131/57
[2016-09-20] MEDS: SIMVASTATIN 20 MG TAB PO SCH (20:11)
--- NOTE | 2016-09-20 20:12 | NUR ---
ADMINISTERED DUE MEDICATIONS WITH EDUCATION. PT VERBALIZED UNDERSTANDING, TOLERATED WELL. BLOOD SUGAR 80, NO INSULIN COVERAGE NEEDED. EVENING SNACKS PROVIDED, PT ENCOURAGED TO EAT. ALL NEEDS MET. SAFETY MEASURES ENSURED. CALL LIGHT WITHIN REACH.
[2016-09-21] VITALS: BP 145/79
[2016-09-21] MEDS: SODIUM PHOS / POTASSIUM PHOS 1 PKT PDR PO SCH ×3 (00:41→12:25)
--- NOTE | 2016-09-21 00:41 | NUR ---
VS NOTED. ADMINISTERED DUE MEDICATION WITH EDUCATION. PT VERBALIZED UNDERSTANDING, TOLERATED MED WELL. SAFETY MEASURES ENSURED. CALL LIGHT WITHIN REACH.
--- NOTE | 2016-09-21 04:18 | NUR ---
PT SLEEPING. CONDITION STABLE. NO S/S OF ACUTE DISTRESS. ALL NEEDS MET. SAFETY MEASURES ENSURED. CALL LIGHT WITHIN REACH. WILL CONTINUE TO MONITOR.
[2016-09-21] MEDS: LORazepam 1 MG TAB PO SCH ×2 (05:16→12:25)
--- NOTE | 2016-09-21 05:35 | NUR ---
ADMINISTERED DUE MEDICATIONS WITH EDUCATION. ADMINISTERED PNA VAC WITH EDUCATION. PT VERBALIZED UNDERSTANDING, TOLERATED MEDS WELL. SAFETY MEASURES ENSURED. CALL LIGHT WITHIN REACH. WILL CONTINUE TO MONITOR.
[2016-09-21] MEDS: BLOOD GLUCOSE MONITORING 1 DEV DEV FS SCH ×2 (06:04→11:52)
--- NOTE | 2016-09-21 06:05 | NUR ---
BLOOD SUGAR 76, NO INSULIN COVERAGE NEEDED. NO S/S OF HYPOGLYCEMIA, CONDITION STABLE. SNACKS PROVIDED, PT ENCOURAGED TO EAT.
[2016-09-21 06:33] LABS: BASOPHILS # (AUTO) 0.1 K/uL (0.00-0.22); BASOPHILS % (AUTO) 1.4 % (0.0-2.0); EOSINOPHILS # (AUTO) 0.1 K/uL (0-0.4); EOSINOPHILS % (AUTO) 1.4 % (0.0-4.0); HEMATOCRIT 38.6 % (36-48); HEMOGLOBIN 12.1 g/dL (12.0-16.0); LYMPHOCYTES # (AUTO) 3.8 K/uL (2.5-16.5); LYMPHOCYTES % (AUTO) 40.1 % (20.5-51.1); MEAN CORPUSCULAR HEMOGLOBIN 30 pg (27-31); MEAN CORPUSCULAR HGB CONC 31 g/dL (33-37); MEAN CORPUSCULAR VOLUME 96 fL (80-94); MONOCYTES # (AUTO) 0.3 K/uL (0.8-1.0); MONOCYTES % (AUTO) 3.3 % (1.7-9.3); NEUTROPHILS # (AUTO) 5.3 K/uL (1.8-7.7); NEUTROPHILS % (AUTO) 53.8 % (42.2-75.2); PLATELET COUNT (AUTO) 209 K/uL (140-450); RED BLOOD CELL COUNT(AUTO) 4.02 MIL/uL (4.20-5.40); RED CELL DISTRIBUTION WIDTH 13.2 % (11.6-13.7)
[2016-09-21 07:02] LABS: ANION GAP 13.3 (8-16); CARBON DIOXIDE 20.2 mmol/L (21-32); CHLORIDE 114 mmol/L (98-107); GLUCOSE 85 mg/dL (74-106); POTASSIUM 4.5 mmol/L (3.5-5.1); SODIUM SERUM 143 mmol/L (136-145); UREA NITROGEN, BLOOD 12 mg/dL (7-18)
[2016-09-21 07:04] LABS: WHITE BLOOD COUNT (AUTO) 9.6 K/uL (4.8-10.8)
--- NOTE | 2016-09-21 07:29 | NUR ---
ENDORSED PLAN OF CARE TO AM NURSE. CONDITION STABLE.
--- NOTE | 2016-09-21 07:35 | NUR ---
RECEIVED REPORT FROM SIMRAN BEAL. PT IS SITTING ON BEDSIDE COMMODE, PT A/OX4, SKIN IS INTACT, JAN REDNESS NOTED, ASSISTED PT BACK INTO BED, IV IS ON THE LT AC, SALINE LOCK, PATENT, INTACT, FLUSHING WELL, NO S/S OF RESPIRATORY DISTRESS OR DISCOMFORT NOTED, SAFETY/FALL PRECAUTIONS ARE IN PLACE, DISCUSSED PLAN OF CARE WITH PT, PT VERBALIZED UNDERSTANDING, CALL LIGHT IS WITHIN REACH. WILL CONTINUE TO MONITOR.
[2016-09-21 08:00] VITALS: BP 181/75
[2016-09-21] MEDS: THIAMINE 100 MG TAB PO SCH (08:09)
[2016-09-21] MEDS: LACTOBACILLUS RHAMNOSUS GG 1 EACH CAP PO SCH (08:10)
[2016-09-21] MEDS: ASPIRIN 81 MG TAB.CHEW PO SCH (08:10)
[2016-09-21] MEDS: VIT-B COMP/VIT-C/FOLIC ACID 1 TAB PO SCH (08:10)
[2016-09-21] MEDS: ESCITALOPRAM 20 MG TAB PO SCH (08:11)
[2016-09-21] MEDS: FOLIC ACID 1 MG TAB PO SCH (08:11)
[2016-09-21] MEDS: NICOTINE TRANSD SYS 21 MG/24 HR PATCH TD SCH (08:11)
--- NOTE | 2016-09-21 08:11 | NUR ---
DUE MEDICATIONS GIVEN, PT TOLERATED WELL, CALL LIGHT WITHIN REACH, WILL CONTINUE TO MONITOR.
[2016-09-21] MEDS: [UNRECOGNIZED DRUG - OTHER] TP SCH (08:19)
[2016-09-21] MEDS: MINERAL OIL TP SCH (08:19)
[2016-09-21] MEDS: MULTIVIT/MIN/CA/FE/FA 1 TAB PO SCH (08:33)
[2016-09-21] MEDS ORDERED: amLODIPine 5 MG TAB PO SCH ×2 (10:00→10:45)
--- NOTE | 2016-09-21 10:15 | NUR ---
ASSISTED PT TO BEDSIDE COMMODE AND BACK INTO BED, CALL LIGHT WITHIN REACH.
--- NOTE | 2016-09-21 10:41 | NUR ---
CALLED PHARMACY SPOKE TO LATESHA, I LET HIM KNOW THE NORVASC THAT WAS ORDERED FOR 10AM TODAY WAS NOT COMING UP IN THE [facility]. LATESHA WENT AHEAD AND LET THE PHARMACIST KNOW AND SAID THEY WOULD FIX IT.
--- NOTE | 2016-09-21 10:56 | NUR ---
Social Service Note: Percy Wooten from [facility] , may go to room 4A and accepting physician is .
--- NOTE | 2016-09-21 12:02 | NUR ---
CALLED THE PATIENT'S SON (LISA) AT [phone], I LET HIM KNOW THE PATIENT WAS BEING DISCHARGED TO [facility] TODAY, HE SAID THAT WAS FINE TO GO AHEAD TO DISCHARGE AND HE WOULD NOTIFY HIS SISTER LORI.
--- NOTE | 2016-09-21 12:15 | NUR ---
PT IS RESTING IN BED, NO S/S OF RESPIRATORY DISTRESS OR DISCOMFORT NOTED, CALL LIGHT WITHIN REACH.
--- NOTE | 2016-09-21 12:26 | NUR ---
PT REFUSED ATIVAN, SHE SAID SHE IS FEELING DROWSY AND SLEEPY AND DOES NOT NEED IT.
--- NOTE | 2016-09-21 13:40 | NUR ---
CALLED SHWETHA MCGRAW GAVE REPORT TO KT HUERTA. I LET HIM KNOW THE PATIENT WAS SCHEDULED TO BE PICKED UP AT 1500 TODAY.
--- NOTE | 2016-09-21 14:40 | NUR ---
PT DISCHARGE INSTRUCTIONS GIVEN, ID WRIST BAND REMOVED, 2 IVS REMOVED, CATHETER TIPS INTACT, PT STABLE UPON DISCHARGE ACCOMPANIED BY TRANSPORT.
== END 2016-09-21 14:40 | DRG 682 ==
LOC: MED 21:23 → MTU 09-17 00:48
PROVIDERS: ADMIT Family Medicine; ATTEND Family Medicine
DX: N17.0 Acute kidney failure with tubular necrosis (principal); G93.41 Metabolic encephalopathy; N39.0 Urinary tract infection, site not specified; I42.2 Other hypertrophic cardiomyopathy; F33.1 Major depressive disorder, recurrent, moderate; E87.6 Hypokalemia; G89.29 Other chronic pain; J44.9 Chronic obstructive pulmonary disease, unspecified; M41.9 Scoliosis, unspecified; Z60.2 Problems related to living alone; M54.9 Dorsalgia, unspecified; E83.51 Hypocalcemia; R33.9 Retention of urine, unspecified; E83.39 Other disorders of phosphorus metabolism; F32.9 Major depressive disorder, single episode, unspecified; I51.7 Cardiomegaly; F17.210 Nicotine dependence, cigarettes, uncomplicated; E86.0 Dehydration; D75.1 Secondary polycythemia; Z72.89 Other problems related to lifestyle
CPT/HCPCS: 36415; 71010; 76770; 80048; 80053; 80305; 81001; 82140; 82150; 82550; 82948; 83036; 83605; 83615; 83690; 83735; 83874; 83880; 84100; 84436; 84439; 84443; 84479; 84484; 84550; 85025; 85610; 85730; 87040; 87081; 87086; 90732; 93005; 93925; 93970; 96361; 96365; 97110; 97116; 97140; 97530; 99285; C1758; C9113; G0482; J0696; J1644; J1815; J2405; J2543; J3480; J7030; J7060; Q0092

== ENCOUNTER 2017-08-26 19:00 | Inpatient (IN) | payer OTHER ==
[~2017-08-26] VITALS: Ht 160 cm; Wt 64.9 kg
--- NOTE | 2017-08-26 19:04 | NUR ---
PT BIBA TO ER BED 04
[2017-08-26 19:05] VITALS: BP 178/118
--- NOTE | 2017-08-26 19:10 | NUR ---
PATIENT PRESENTS TO ED BIBA WITH DIZZINESS X1 HOUR. PATIENT STATES SHE WAS FEELING DIZZY, LOWERED HERSELF TO THE GROUND BY HOLDING ON TO A NEARBY TRASHCAN. PATIENT DENIES FALLING OR LOC. PT DENIES N/V/D; SKIN IS PINK/WARM/DRY; AAOX4 WITH EVEN AND STEADY GAIT; LUNGS CLEAR BL; HR EVEN AND REGULAR; PT DENIES ANY FEVER, CP, SOB, OR COUGH AT THIS TIME; PATIENT STATES PAIN OF 0/10 AT THIS TIME; VSS; PATIENT POSITIONED FOR COMFORT; HOB ELEVATED; BEDRAILS UP X1; BED DOWN. ER MD MADE AWARE OF PT STATUS.
--- NOTE | 2017-08-26 20:12 | NUR ---
Dr. Ramos evaluating patient at bedside.
[2017-08-26] MEDS ORDERED: NACL 0.9% 1,000 ML IV ONE ×2 (20:25→21:30)
[2017-08-26 21:06] LABS: BASOPHILS # (AUTO) 0.1 K/uL (0.00-0.22); BASOPHILS % (AUTO) 1.7 % (0.0-2.0); EOSINOPHILS # (AUTO) 0.1 K/uL (0-0.4); EOSINOPHILS % (AUTO) 0.9 % (0.0-4.0); HEMATOCRIT 45.2 % (36-48); HEMOGLOBIN 14.6 g/dL (12.0-16.0); LYMPHOCYTES # (AUTO) 1.7 K/uL (2.5-16.5); LYMPHOCYTES % (AUTO) 23.1 % (20.5-51.1); MEAN CORPUSCULAR HEMOGLOBIN 29 pg (27-31); MEAN CORPUSCULAR HGB CONC 32 g/dL (33-37); MEAN CORPUSCULAR VOLUME 88.6 fL (80-94); MONOCYTES # (AUTO) 0.5 K/uL (0.8-1.0); MONOCYTES % (AUTO) 6.3 % (1.7-9.3); NEUTROPHILS # (AUTO) 4.9 K/uL (1.8-7.7); PLATELET COUNT (AUTO) 237 K/uL (140-450); RED BLOOD CELL COUNT(AUTO) 5.09 MIL/uL (4.20-5.40); RED CELL DISTRIBUTION WIDTH 15.5 % (11.6-13.7); WHITE BLOOD COUNT (AUTO) 7.3 K/uL (4.8-10.8)
--- NOTE | 2017-08-26 21:07 | NUR ---
PATIENT UNABLE TO PROVIDE URINE AT THIS TIME. PATIENT REFUSED STRAIGHT CATHETER AT THIS TIME. ER VAMSHI MADE AWARE.
[2017-08-26 21:17] LABS: ANION GAP 21.9 (8-16); CARBON DIOXIDE 24.5 mmol/L (21-32); CHLORIDE 95 mmol/L (98-107); CREATININE 1.4 mg/dL (0.6-1.3); GLUCOSE 110 mg/dL (74-106); POTASSIUM 3.4 mmol/L (3.5-5.1); SODIUM SERUM 138 mmol/L (136-145); UREA NITROGEN, BLOOD 24 mg/dL (7-18)
[2017-08-26 21:23] LABS: ALBUMIN 4.7 g/dL (3.4-5.0); ASPARTATE AMINOTRANSFERASE 40 U/L (15-37); TOTAL BILIRUBIN 0.9 mg/dL (0.0-1.0)
[2017-08-27] VITALS (7 sets, daily range): BP systolic 133–146; BP diastolic 66–77
[2017-08-27] MEDS ORDERED: ONDANSETRON 4 MG/2 ML VIAL IVP PRN (00:35)
[2017-08-27] MEDS ORDERED: HYDROcodone/APAP 7.5/325 MG 1 TAB PO PRN ×2 (00:35→06:10)
[2017-08-27] MEDS ORDERED: ACETAMINOPHEN 325 MG TAB PO PRN (00:35)
[2017-08-27] MEDS ORDERED: MECLIZINE 25 MG TAB PO PRN (00:45)
[2017-08-27] MEDS ORDERED: INSULIN LISPRO SLIDING SCALE 100 UNITS/ML VIAL SUBQ PRN (00:55)
[2017-08-27] MEDS ORDERED: DEXTROSE 50% 50 ML SYR IVP PRN (00:55)
[2017-08-27] MEDS ORDERED: LORazepam 2 MG/ML VIAL IVP PRN (00:55)
[2017-08-27] MEDS ORDERED: ALBUTEROL SULFATE/IPRATROPIU 3 ML SOL IH PRN (01:05)
--- NOTE | 2017-08-27 01:26 | NUR ---
Patient will be admitted to care of DR. ROSALES. Admited to TELE. Will go to room 124A. Belongings list completed. Report to SIMÓN KHALIL.
[2017-08-27] MEDS ORDERED: POTASSIUM CHLORIDE 10 MEQ TABER PO SCH ×2 (01:30→07:00)
--- NOTE | 2017-08-27 01:30 | NUR ---
ADMITTED PATIENT TO THE TELE UNIT. PATIENT AWAKE ALERT ORIENTED X4, NO S/S OF DISTRESS NOTED, RESPIRATION EVEN AND UNLABORED, ON ROOM AIR. IV PATENT AND INTACT. TELE MONITOR PLACED ON PATIENT, PLAN OF CARE DISCUSSED, PATIENT VERBALIZED UNDERSTANDING, CALL LIGHT WITHIN REACH, SAFETY MEASURE ENSURED, WILL CONTINUE TO MONITOR.
[2017-08-27 01:34] LABS: PROTHROMBIN TIME 11.5 secs (10.8-13.4)
[2017-08-27 01:42] LABS: CHOL/HDL RATIO 3.2 (1-4.5); FREE T4 (FREE THYROXINE) 1.11 ng/dL (0.76-1.46); PHOSPHORUS 2.5 mg/dL (2.5-4.9); THYROID STIMULATING HORMONE 1.08 uIU/mL (0.34-3.74)
[2017-08-27] MEDS: NACL 0.9% 1,000 ML IV SCH ×2 (01:44→13:03)
[2017-08-27 01:56] LABS: APPEARANCE,URINE SL CLOUDY (CLEAR); BILIRUBIN,URINE 2+ (NEGATIVE); BLOOD, URINE TRACE-I (NEGATIVE); COLOR,URINE YELLOW (YELLOW); LEUKOCYTE ESTERASE ,URINE TRACE (NEGATIVE); NITRITE, URINE NEGATIVE (NEGATIVE); PH,URINE 6.5 (5.0-9.0); UGLUCOSE NEGATIVE (NEGATIVE)
[2017-08-27 02:02] LABS: MAGNESIUM 1.2 mg/dL (1.8-2.4)
[2017-08-27 02:04] LABS: BARBITURATE, URINE NEG. ng/ml (NEG <=200); BENZODIAZEPINE, URINE NEG. ng/mL (NEG <=200); CANNABINOID, URINE NEG. ng/mL (NEG <=50); COCAINE, URINE NEG. ng/mL (NEG <=300); OPIATE, URINE NEG. ng/mL (NEG <=2000); PHENCYCLIDINE SCREEN,URINE NEG. ng/mL (NEG <=25)
[2017-08-27 02:07] LABS: RBC,URINE 3-10 (FEW) /HPF (0-5)
[2017-08-27] MEDS ORDERED: MAG SULF 2000 MG/WATER PREMIX 100 ML IV SCH (02:30)
--- NOTE | 2017-08-27 02:55 | NUR ---
BACK PAIN 6/10, NORCO GIVEN ORDERED. PATIENT TOLERATED WELL. NO S/S OF DISTRESS NOTED, SAFETY MEASURE ENSURED, WILL CONTINUE TO MONITOR.
[2017-08-27] MEDS ORDERED: SUCRALFATE 1 GM TAB PO PRN (03:05)
[2017-08-27] MEDS ORDERED: cefTRIAXone 1,000 MG VIAL ONE (04:11)
[2017-08-27] MEDS: LORazepam 1 MG TAB PO SCH ×3 (04:15→21:25)
--- NOTE | 2017-08-27 05:11 | NUR ---
PATIENT OFF THE UNIT FOR HEAD CT IN STABLE CONDITION.
--- NOTE | 2017-08-27 05:30 | NUR ---
PATIENT IS BACK IN STABLE CONDITION.
--- NOTE | 2017-08-27 05:42 | NUR ---
VOIDED X1, NO STONE FOUND. PATIENT RESTING IN BED, WILL CONTINUE TO MONITOR.
[2017-08-27 06:12] LABS: BASOPHILS # (AUTO) 0.1 K/uL (0.00-0.22); BASOPHILS % (AUTO) 0.9 % (0.0-2.0); EOSINOPHILS # (AUTO) 0.1 K/uL (0-0.4); EOSINOPHILS % (AUTO) 1.2 % (0.0-4.0); HEMATOCRIT 38.9 % (36-48); HEMOGLOBIN 12.8 g/dL (12.0-16.0); LYMPHOCYTES # (AUTO) 2.6 K/uL (2.5-16.5); LYMPHOCYTES % (AUTO) 39.5 % (20.5-51.1); MEAN CORPUSCULAR HEMOGLOBIN 29 pg (27-31); MEAN CORPUSCULAR HGB CONC 33 g/dL (33-37); MEAN CORPUSCULAR VOLUME 88.3 fL (80-94); MONOCYTES # (AUTO) 0.4 K/uL (0.8-1.0); MONOCYTES % (AUTO) 5.8 % (1.7-9.3); NEUTROPHILS # (AUTO) 3.4 K/uL (1.8-7.7); NEUTROPHILS % (AUTO) 52.6 % (42.2-75.2); PLATELET COUNT (AUTO) 198 K/uL (140-450); RED CELL DISTRIBUTION WIDTH 15.6 % (11.6-13.7); WHITE BLOOD COUNT (AUTO) 6.5 K/uL (4.8-10.8)
[2017-08-27 06:36] LABS: ANION GAP 18.2 (8-16); CARBON DIOXIDE 21.1 mmol/L (21-32); CHLORIDE 101 mmol/L (98-107); CREATININE 1.2 mg/dL (0.6-1.3); GLUCOSE 148 mg/dL (74-106); POTASSIUM 3.3 mmol/L (3.5-5.1); SODIUM SERUM 137 mmol/L (136-145); UREA NITROGEN, BLOOD 20 mg/dL (7-18)
[2017-08-27 06:37] LABS: MAGNESIUM 2.2 mg/dL (1.8-2.4); PHOSPHORUS 2.2 mg/dL (2.5-4.9)
[2017-08-27] MEDS: BLOOD GLUCOSE MONITORING 1 DEV DEV FS SCH ×4 (06:46→21:25)
--- NOTE | 2017-08-27 07:40 | NUR ---
ENDORSED PLAN OF CARE TO DAY SHIFT NURSE. PATIENT IS IN STABLE CONDITION.
--- NOTE | 2017-08-27 07:41 | NUR ---
RECEIVED REPORT FROM PM NURSE. PT AWAKE , INTRODUCED SELF , LYING BACK ON THE BED. BED AT LOWER POSITION, IV INFUSING WELL. HAS IV ON RT HAND WRIST 22 G. PT ON ROOM AIR, HAS NO SIGN ON DISTRESS. UPDATED BOARD. WILL CONTINUE TO MONITOR THE PT.
--- NOTE | 2017-08-27 07:45 | NUR ---
AWAKE AND ALERT NO SOB NOTED PATIENT WITH BREAKFAST TRAY AT THIS TIME TENTER FRAME BACK TENDER TO ATTEMPT HHN THERAPY AT A LATER TIME
--- NOTE | 2017-08-27 08:38 | NUR ---
PATIENT HAS BEEN SCREENED AND CATEGORIZED MODERATE NUTRITION RISK. PATIENT WILL BE SEEN WITHIN 3-5 DAYS OF ADMISSION. 08/29/17 08/31/[address]
[2017-08-27] MEDS: LACTOBACILLUS RHAMNOSUS GG 1 EACH CAP PO SCH (08:44)
[2017-08-27] MEDS: MULTIVITAMIN 1 TAB PO SCH (08:44)
[2017-08-27] MEDS: BUDESONIDE 0.25 MG/2 ML NEBU INH SCH ×2 (08:44→19:30)
[2017-08-27] MEDS: SODIUM PHOS / POTASSIUM PHOS 1 PKT PDR PO SCH ×3 (08:45→17:38)
[2017-08-27] MEDS: DOCUSATE SODIUM 100 MG GELCAP PO SCH ×2 (08:45→21:25)
[2017-08-27] MEDS: FOLIC ACID 1 MG TAB PO SCH (08:45)
[2017-08-27] MEDS: TAMSULOSIN 0.4 MG CAP PO SCH (08:45)
[2017-08-27] MEDS: THIAMINE 100 MG TAB PO SCH (08:45)
[2017-08-27] MEDS: HYDROCHLOROTHIAZIDE 25 MG TAB PO SCH (08:46)
[2017-08-27] MEDS ORDERED: NICOTINE TRANSD SYS 7 MG/24 HR PATCH TD SCH ×2 (09:00)
--- NOTE | 2017-08-27 09:00 | NUR ---
ADMINISTERED MEDS ORDERED. PT TOLERATED WELL. PT AOX4. PT LYING ON BED . ASSISTED PT TO RESTROOM. PT HAS GENERALIZED WEAKNESS. STATES CAN WALK TO RESTROOM . PT STATES HAS SOME DIZZINESS BUT OKAY. PT URINATED IN URINE HAT, STRANGLE. NO ANY STONE NOTED. ASSISTED PT TO BEDSIDE. CALL LIGHT WITHIN REACH. INSTRUCTED PT TO PRESS CALL LIGHT FOR HELP. PT VERBALIZED UNDERSTANDING OF TEACHING. BED AT LOWER POSITION. NO SIGN OF DISTRESS. WILL CONTINUE TO MONITOR THE PT
--- NOTE | 2017-08-27 10:00 | NUR ---
CHECKED ON PT. PT LYING ON BED. NO SIGN OF DISTRESS. NO SOB. WILL CONTINUE TO MONITOR PT.
--- NOTE | 2017-08-27 12:54 | NUR ---
ADMINISTERED MEDS ORDERED. PT TOLERATED MEDS WELL. CALL LIGHT WITHIN PT REACH. INSTRUCTED PT TO USE CALL LIGHT FOR ASKING HELP. ASKED PT TO CALL FOR HELP FOR USING THE RESTROOM. BED AT LOWER POSITION. PT HAS NO SIGN OF DISTRESS. NO SOB. PAIN AT [place], STATES ITS TOLERABLE. WILL CONTINUE TO MONITOR THE PT.
--- NOTE | 2017-08-27 14:05 | NUR ---
PT LEFT WITH FACILITY STAFF BRANNON AT 1405. PT IN STABLE CONDITION. PT BP 112/65 , O2 SAT 96% ON NC 2L. PT STABLE , NO SIGN OF SOB, NO DISTRESS AT RA. G-TUBE FLUSHED AND IS PATENT, NO CLOGGING. REPORT WAS GIVEN TO SIMRAN DESIR OF THE FACILITY. CALLED HER NUMBER AT [phone]. PT LEFT WITH ALL HIS BELONGINGS AND WAS STABLE AT AT TIME OF DISCHARGE. Addendum: 08/27/17 at 1430 by Radha Acosta RN WRONG PT. IT WAS DISCHARGE NOTE FOR ROOM 116 B.
--- NOTE | 2017-08-27 14:35 | NUR ---
GOT CALL FROM THE OENOLOGIST WHILE RECEIVING REPORT FROM ICU NURSE FOR THE TRANSFER PT IN 119B. REPORTS PT ON FALL OF THE PT AT 1435. CHECKED ON PT. VS BP 107/86, O2 SAT 97%, HR 89. PT STATES THAT AFTER SHE GOT OFF FROM THE BED, FELL AGAINST THE WALL WHILE TRYING TURNING AROUND FOR GOING TO RESTROOM. DOCTOR PRADIP NOTIFIED OF FALL, CHARGE NURSE NOTIFIED. NO INJURY NOTED AT THIS TIME. ASSISTED PT BACK TO BED. PT IS STABLE, NO SIGN OF DISTRESS. REORIENTED PT TO USE CALL LIGHT FOR ASKING ANY HELP. PT VERBALIZED UNDERSTANDING OF TEACHING. Addendum: 08/27/17 at 2043 by Radha Acosta RN PT DENIES HITTING HER HEAD, DENIES LOC. PT NOW AOX4, SPEAKS CLEARLY, DENIES CHEST PAIN. PT HAS NO SOB. PT APPEARS IN NO ACUTE DISTRESS. WILL CONTINUE TO MONITOR THE PT.
--- NOTE | 2017-08-27 14:45 | NUR ---
INITIATED FALL PRECAUTION, PT IN YELLOW GOWN, YELLOW SHOCKS, YELLOW BAND, BED ALARM ON. BED AT LOWER POSITION. SIDE RAILS UPX2. CALL LIGHT WITHIN REACH. DEMONSTRATED HOW TO USE CALL LIGHT AGAIN. PT VERBALISED FULL UNDERSTANDING OF TEACHING. WILL CONTINUE TO MONITOR THE PT.
[2017-08-27] MEDS ORDERED: NICOTINE TRANSD SYS 14 MG/24 HR PATCH TD SCH (15:30)
--- NOTE | 2017-08-27 15:39 | NUR ---
PT SON CALLED . TALED TO DR MOSELEY ABOUT THE PLAN OF CARE . NOTIFIED THAT PT HAD FALL. WANTED TO TALK TO MOM. EXPLAINED THAT SENIOR COMMERCIAL LOAN OFFICER CAN TRANSFER THE CALL TO THE ROOM. INFORMED PT THAT HER SON WILL BE CALLING HER SOON. PT WAS USING THE BEDSIDE COMMODE. DIRECTOR LIFE WAS ASSISTING THE PT. . ALL SAFETY MEASURE IN PLACE. CALL LIGHT WITHIN REACH. WILL CONTINUE TO MONITOR THE PT.
--- NOTE | 2017-08-27 17:10 | NUR ---
ASSISTED PT TO BEDPAN. PT STABLE AT THIS TIME. ASSISTED BACK TO BED. IV INFUSING WELL. PT IS ORIENTED TO USE CALL LIGHT AND ORIENTED TO THE ROOM. PT VERBALIZED THE UNDERSTANDING OF TEACHING. WILL CONTINUE TO MONITOR PT.
--- NOTE | 2017-08-27 17:47 | NUR ---
ADMINISTERED MEDS ORDERED. PT LYING BACK ON HER BED. NO SIGN OF DISTRESS. IV INFUSING WELL. ALL SAFETY MEASURE IN PLACE WILL CONTINUE TO MONITOR PT. REORIENTED PT TO USE THE CALL LIGHT TO CALL FOR HELP FOR GOING TO RESTROOM. PT VERBALISED UNDERSTANDING OF TEACHING. WILL CONTINUE TO MONITOR PT.
--- NOTE | 2017-08-27 19:30 | NUR ---
ENDORSED PT TO PM NURSE. PT IN STABLE CONDITION.
--- NOTE | 2017-08-27 19:40 | NUR ---
RECEIVED REPORT FROM DAY SHIFT RN, PATIENT RESTING IN BED, AWAKE ALERT ORIENTED X3, NO S/S OF DISTRESS NOTED, RESPIRATION EVEN AND UNLABORED, NO IV ACCESS AT THIS TIME, EDUCATED PATIENT ABOUT THE SAFETY MEASURE AND FALL RISK PRECAUTION, PATIENT VERBALIZED UNDERSTANDING. CALL LIGHT WITHIN REACH, SAFETY MEASURE ENSURE, WILL CONTINUE TO MONITOR.
--- NOTE | 2017-08-27 21:05 | NUR ---
NEW IV 24G STARTED ON RT HAND. PATIENT TOLERATED WELL. WILL CONTINUE TO MONITOR.
--- NOTE | 2017-08-27 21:25 | NUR ---
DUE MEDICATION GIVEN, PATIENT TOLERATED WELL, NO S/S OF DISTRESS NOTED, DUE MEDICATION GIVEN, SAFETY MEASURE ENSURED, WILL CONTINUE TO MONITOR.
--- NOTE | 2017-08-28 00:13 | NUR ---
VITAL SIGNS STABLE, PATIENT WAS SLEEPING, BUT EASY TO AROUSE. NO S/S OF DISTRESS NOTED, SAFETY MEASURE ENSURED, WILL CONTINUE TO MONITOR.
[2017-08-28] MEDS: NACL 0.9% 1,000 ML IV SCH ×2 (01:56→17:03)
--- NOTE | 2017-08-28 02:02 | NUR ---
ASSISTED PATIENT USED THE BEDSIDE COMMODE. PATIENT RESTING IN BED NOW. NO S/S OF DISTRESS NOTED, RESPIRATION EVEN AND UNLABORED, ON ROOM AIR. CALL LIGHT WITHIN REACH, SAFETY MEASURE ENSURED, WILL CONTINUE TO MONITOR.
[2017-08-28 04:00] VITALS: BP 145/70
[2017-08-28] MEDS: LORazepam 1 MG TAB PO SCH ×3 (04:22→21:13)
--- NOTE | 2017-08-28 04:28 | NUR ---
VITAL SIGNS STABLE, ASSISTED PATIENT USED BEDSIDE COMMODE. PATIENT RESTING IN BED, DUE MEDICATION GIVEN, PATIENT TOLERATED WELL. NO S/S OF DISTRESS NOTED, CALL LIGHT WITHIN REACH, SAFETY MEASURE ENSURED, WILL CONTINUE TO MONITOR.
--- NOTE | 2017-08-28 05:42 | NUR ---
550ML URINE OUTPUT THROUGHOUT THE NIGHT, NO STONE FOUND.
[2017-08-28] MEDS: BLOOD GLUCOSE MONITORING 1 DEV DEV FS SCH ×4 (06:48→21:14)
--- NOTE | 2017-08-28 07:15 | NUR ---
ENDORSED PLAN OF CARE TO DAY SHIFT SITAL, PATIENT IS IN STABLE CONDITION.
--- NOTE | 2017-08-28 07:16 | NUR ---
RECEIVED REPORT FROM PM NURSE. PT IN YELOLOW GOWN, YELLOW WRIST BAND. YELLOW SHOCKS, BED ALARM IS ON. IV LINE INFUSING WELL. BED AT LOWER POSITION. SIDE RAILS UPX2. WILL CONTINUE TO MONITOR PT.
[2017-08-28 07:45] LABS: BASOPHILS % (AUTO) 0.5 % (0.0-2.0); EOSINOPHILS # (AUTO) 0.1 K/uL (0-0.4); EOSINOPHILS % (AUTO) 2.2 % (0.0-4.0); HEMATOCRIT 32.3 % (36-48); HEMOGLOBIN 10.8 g/dL (12.0-16.0); LYMPHOCYTES # (AUTO) 1.8 K/uL (2.5-16.5); LYMPHOCYTES % (AUTO) 37.1 % (20.5-51.1); MEAN CORPUSCULAR HEMOGLOBIN 30 pg (27-31); MEAN CORPUSCULAR HGB CONC 34 g/dL (33-37); MEAN CORPUSCULAR VOLUME 88.4 fL (80-94); MONOCYTES # (AUTO) 0.3 K/uL (0.8-1.0); NEUTROPHILS # (AUTO) 2.5 K/uL (1.8-7.7); NEUTROPHILS % (AUTO) 53.2 % (42.2-75.2); PLATELET COUNT (AUTO) 161 K/uL (140-450); RED BLOOD CELL COUNT(AUTO) 3.66 MIL/uL (4.20-5.40); RED CELL DISTRIBUTION WIDTH 15.8 % (11.6-13.7); WHITE BLOOD COUNT (AUTO) 4.7 K/uL (4.8-10.8)
[2017-08-28 07:55] LABS: ANION GAP 12.6 (8-16); CARBON DIOXIDE 26.4 mmol/L (21-32); CHLORIDE 106 mmol/L (98-107); GLUCOSE 97 mg/dL (74-106); SODIUM SERUM 141 mmol/L (136-145); UREA NITROGEN, BLOOD 11 mg/dL (7-18)
[2017-08-28 07:56] LABS: PHOSPHORUS 3.7 mg/dL (2.5-4.9)
[2017-08-28] MEDS: BUDESONIDE 0.25 MG/2 ML NEBU INH SCH ×2 (07:56→21:15)
[2017-08-28 08:00] VITALS: BP 145/68
[2017-08-28] MEDS ORDERED: NICOTINE TRANSD SYS 14 MG/24 HR PATCH TD SCH (09:00)
--- NOTE | 2017-08-28 09:00 | NUR ---
ADMINISTERED MEDS ORDERED. PT ASSISTED TO BEDSIDE COMMODE AND BACK TO BED. PT TOLERATED WELL. INSTRUCTED HER TO PRESS CALL LIGHT FOR ANY HELP. VERBALIZED THE UNDERSTANDING OF TEACHING. WILL CONTINUE TO MONITOR PT.
[2017-08-28] MEDS: THIAMINE 100 MG TAB PO SCH (09:04)
[2017-08-28] MEDS: MULTIVITAMIN 1 TAB PO SCH (09:04)
[2017-08-28] MEDS: TAMSULOSIN 0.4 MG CAP PO SCH (09:04)
[2017-08-28] MEDS: FOLIC ACID 1 MG TAB PO SCH (09:05)
[2017-08-28] MEDS: LACTOBACILLUS RHAMNOSUS GG 1 EACH CAP PO SCH (09:05)
[2017-08-28] MEDS: DOCUSATE SODIUM 100 MG GELCAP PO SCH ×2 (09:05→21:12)
[2017-08-28] MEDS: HYDROCHLOROTHIAZIDE 25 MG TAB PO SCH (09:05)
--- NOTE | 2017-08-28 11:05 | NUR ---
Cake Mixer Note: I met with patient at bedside. Per patient, she lives alone at home and is in agreement with short term snf placement for physical therapy. She stated she has been at [facility] previously. She stated her son Adelita visits her about once a month at home. She reported she is independent with ADLs. She does not have a pcp at this time. I emphasized to her the importance of following up with a physician post discharge. She verbalized understanding. She stated she is unsure if her [facility] is active. She walks to the grocery store without any difficulty. She stated she no longer drinks alcohol as much as she use to in the past and is aware of risk of alcohol abuse. She reported she plans to decrease her alcohol intake. She declined list of alcohol/substance abuse treatment programs. I called and spoke with her son Adelita, he stated he is planning to have patient move in with him upon discharge from [facility].
--- NOTE | 2017-08-28 11:45 | NUR ---
PT ASSISTED TO BEDSIDE. SITTING ON HER BEDSIDE COMMODE. INSTRUCTED HER TO PRESS CALL LIGHT BEFORE SHE GET UP AND WANT TO GO BED. CALL LIGHT WITHIN PT REACH. SOLVENT PLANT OPERATOR NOTIFIED TO CHECK ON HER. VERBALISED UNDERSTANDING. WILL CONTINUE TO MONITOR PT.
[2017-08-28 12:00] VITALS: BP 118/64
--- NOTE | 2017-08-28 12:57 | NUR ---
PHYSICAL THERAPY CO-SIGN The Physical Therapy Progress Notes documented by Lump Receiver have been reviewed. I CONCUR W/MANAGER MISSION NOTE; CONT PER TX PLAN Reviewed/Co-Signed by: Dior Howard, PT Documentation Done by: CAN SHAIKH PTA Addendum: 08/28/17 at 1258 by Dior Howard PT Amended: Links added.
--- NOTE | 2017-08-28 13:35 | NUR ---
Automotive Professional Note: I met with patient at bedside to discuss discharge plan to snf for physical therapy. I explained to her the difference between [facility] snf vs. short term snf. She verbalized understanding. She stated she would like to return home upon discharge from snf. Patient in agreement with short term snf placement. She stated she has been at [facility] previously and would like to be placed there if possible. She reported [facility] is close to her home. I also called and spoke with her son Adelita Jain , informed him of my conversation with patient. He is also in agreement with snf placement and patient's choice of snf. I faxed inquiry to [facility]. Per Sugar from [facility], they will have a bed on 08/30/17, room 4B, accepting physician is . I informed patient would like to be transfer to [facility] and that bed will be available on 08/30/17.
--- NOTE | 2017-08-28 13:50 | NUR ---
ADMINISTERED MEDS ORDERED TO PT. DOCTOR MOSELEY AT BEDSIDE TALKING TO THE PT. PT DENIES ANY PAIN EXCEPT OF HER SCOLIOSIS. INSTRUCTED PT TO USE THE CALL LIGHT FOR ANY NEED. NOT TO GET UP FROM THE . BED ALARM ON. ALL THE SAFETY MEASURE IN PLACE. CALL LIGHT WITHIN REACH. EDUCATED PT THAT DIZZINESS IS RISK FOR FALL. PT VERBALIZED UNDERSTANDING OF TEACHING. OFFERED COFFEE. PT LYING ON BED. NO SIGN OF DISTRESS NOTED. WILL CONTINUE TO MONITOR PT.
[2017-08-28] MEDS ORDERED: MECLIZINE 25 MG TAB PO PRN (14:00)
[2017-08-28] MEDS ORDERED: NICOTINE TRANSD SYS 21 MG/24 HR PATCH TD SCH (14:30)
[2017-08-28 16:00] VITALS: BP 112/62
--- NOTE | 2017-08-28 17:11 | NUR ---
ADMINISTERED MEDS TO PT. PT TOLERATED WELL. INSTRUCTED PT TO USE CALL LIGHT FOR USING BEDSIDE COMMODE. PT HAS YELLOW GOWN ON, YELLOW WRIST BAND, YELLOW SHOCKS, BED ALARM IS ON, CALL LIGHT IN PT HAND. PT STABLE AT THIS TIME. VERBALIZES UNDERSTANDING OF TEACHING. BED IS TA LOWER POSITION. PT SIDE RAILS ARE UPX2. PHONE NEAR TO HER. WILL CONTINUE TO MONITOR PT.
--- NOTE | 2017-08-28 17:33 | NUR ---
ASSISTED PT TO BEDSIDE COMMODE. PT STILL HAS DIZZINESS. WEAK GAIT. PT PUT BACK ON BED SAFELY. BED ALARM ON. BED ON LOW POSITION. SIDE RAILS UPX2. INSTRUCTED PT ERNESTINE USE CALL LIGHT WILL CONTINUE TO MONITOR PT.
--- NOTE | 2017-08-28 18:30 | NUR ---
CHECKED ON PT. PT LYING ON BED , WATCHING TV. ALL SAFETY MEASURE IN PLACE. WILL CONTINUE TO MONITOR PT.
--- NOTE | 2017-08-28 19:20 | NUR ---
RECEIVED REPORT FROM DAY SHIFT NURSE. PT IN BED, WATCHING TV. NO C/O DIZZINESS OR PAIN. IV TO LEFT HAND #22G, NS AT 75 ML/HR, INFUSING WELL. DISCUSSED PLAN OF CARE, PT VERBALIZED UNDERSTANDING. SAFETY PRECAUTION IN PLACE. CALL LIGHT WITHIN REACH.
--- NOTE | 2017-08-28 19:20 | NUR ---
ENDORSED TO PM NURSE FOR CONTINUITY OF CARE. PT STABLE AT THIS TIME.
[2017-08-28 20:00] VITALS: BP 143/74
--- NOTE | 2017-08-28 21:14 | NUR ---
DUE MEDS GIVEN. PT TOLERATED WELL. NO C/O DIZZINESS OR PAIN. FALL PRECAUTION IN PLACE. CALL LIGHT WITHIN REACH.
--- NOTE | 2017-08-28 23:30 | NUR ---
PT IN BED WATCHING TV. NO DISTRESS NOTED. ALL NEEDS MET AT THIS TIME. CALL LIGHT WITHIN REACH.
[2017-08-29] VITALS: BP 124/70
--- NOTE | 2017-08-29 01:20 | NUR ---
PT ACCIDENTALLY PULLED OUT IV, NO BLEEDING NOTED. INSERTED IV LINE TO RIGHT HAND #22G. GOOD FLUSH AND BLOOD RETURN. PT TOLERATED WELL.
[2017-08-29] MEDS: NACL 0.9% 1,000 ML IV SCH ×3 (02:33→15:03)
--- NOTE | 2017-08-29 03:30 | NUR ---
PT SLEEPING BUT EASILY AROUSABLE. NO S/S OF DISTRESS. SAFETY PRECAUTION IN PLACE. CALL LIGHT WITHIN REACH.
[2017-08-29 04:00] VITALS: BP 126/72
[2017-08-29] MEDS: LORazepam 1 MG TAB PO SCH ×3 (05:19→20:15)
--- NOTE | 2017-08-29 05:20 | NUR ---
PT SLEEPING BUT WAKES EASILY. NO S/S OF PAIN OR DISCOMFORT. NO S/S OF RESP DISTRESS.
[2017-08-29] MEDS: BLOOD GLUCOSE MONITORING 1 DEV DEV FS SCH ×4 (06:45→20:12)
[2017-08-29] MEDS: BUDESONIDE 0.25 MG/2 ML NEBU INH SCH ×2 (06:59→19:51)
--- NOTE | 2017-08-29 07:10 | NUR ---
ENDORSED PT TO DAY SHIFT NURSE. PT IN STABLE CONDITION.
--- NOTE | 2017-08-29 07:15 | NUR ---
RECEIVED REPORT FROM CERTIFIED PUBLIC ACCOUNTANT RN. PATIENT IS AAO X3. NO COMPLAINTS OF DIZZINESS OR PAIN. LUNGS CTA IN ALL ENAMORADO. HEART RHYTHM REGULAR. SKIN IS INTACT. NICOTINE PATCH ON LEFT ARM. IV SITE ASYMPTOMATIC, RUNNING IVF PER MD ORDERS. PATIENT IS VOIDING. PATIENT HAD DIARRHEA X1 THIS MORNING. ALL SAFETY MEASURES ARE IN PLACE. CALL LIGHT WITHIN REACH. WILL CONTINUE TO MONITOR.
[2017-08-29 07:40] LABS: BASOPHILS % (AUTO) 0.3 % (0.0-2.0); EOSINOPHILS # (AUTO) 0.1 K/uL (0-0.4); EOSINOPHILS % (AUTO) 2.6 % (0.0-4.0); HEMOGLOBIN 10.8 g/dL (12.0-16.0); LYMPHOCYTES # (AUTO) 1.7 K/uL (2.5-16.5); LYMPHOCYTES % (AUTO) 36.8 % (20.5-51.1); MEAN CORPUSCULAR HEMOGLOBIN 29 pg (27-31); MEAN CORPUSCULAR HGB CONC 33 g/dL (33-37); MEAN CORPUSCULAR VOLUME 89.3 fL (80-94); MONOCYTES # (AUTO) 0.4 K/uL (0.8-1.0); MONOCYTES % (AUTO) 9.4 % (1.7-9.3); NEUTROPHILS # (AUTO) 2.3 K/uL (1.8-7.7); NEUTROPHILS % (AUTO) 50.9 % (42.2-75.2); PLATELET COUNT (AUTO) 161 K/uL (140-450); RED CELL DISTRIBUTION WIDTH 15.6 % (11.6-13.7); WHITE BLOOD COUNT (AUTO) 4.5 K/uL (4.8-10.8)
[2017-08-29 07:51] LABS: ANION GAP 12.6 (8-16); CARBON DIOXIDE 25.1 mmol/L (21-32); CHLORIDE 109 mmol/L (98-107); GLUCOSE 98 mg/dL (74-106); POTASSIUM 3.7 mmol/L (3.5-5.1); SODIUM SERUM 143 mmol/L (136-145); UREA NITROGEN, BLOOD 9 mg/dL (7-18)
[2017-08-29 08:00] VITALS: BP 155/80
[2017-08-29 08:02] LABS: MAGNESIUM 1.7 mg/dL (1.8-2.4); PHOSPHORUS 3.6 mg/dL (2.5-4.9)
[2017-08-29] MEDS: LACTOBACILLUS RHAMNOSUS GG 1 EACH CAP PO SCH (09:00)
[2017-08-29] MEDS: TAMSULOSIN 0.4 MG CAP PO SCH (09:00)
[2017-08-29] MEDS ORDERED: NICOTINE TRANSD SYS 21 MG/24 HR PATCH TD SCH (09:00)
[2017-08-29] MEDS: DOCUSATE SODIUM 100 MG GELCAP PO SCH ×2 (09:00→20:13)
--- NOTE | 2017-08-29 09:00 | NUR ---
SCHEDULED MEDICATIONS GIVEN AT THIS TIME PER MD ORDERS. PATIENT IS EATING IN BED. NO COMPLAINTS OF PAIN. ALL SAFETY MEASURES IN PLACE. WILL CONTINUE TO MONITOR.
[2017-08-29] MEDS: FOLIC ACID 1 MG TAB PO SCH (09:01)
[2017-08-29] MEDS: MULTIVITAMIN 1 TAB PO SCH (09:01)
[2017-08-29] MEDS: THIAMINE 100 MG TAB PO SCH (09:01)
[2017-08-29] MEDS: HYDROCHLOROTHIAZIDE 25 MG TAB PO SCH (09:01)
--- NOTE | 2017-08-29 11:30 | NUR ---
PATIENT HAD ANOTHER EPISODE OF DIARRHEA, ASSISTED WITH PATIENT CLEANUP. SAFETY MEASURES IN PLACE, CALL LIGHT WITHIN REACH. WILL CONTINUE TO MONITOR.
[2017-08-29 12:00] VITALS: BP 128/62
--- NOTE | 2017-08-29 13:40 | NUR ---
PATIENT LYING DOWN IN BED WATCHING TV. NO DISTRESS NOTED. CONDITION UNCHANGED. WILL CONTINUE TO MONITOR.
--- NOTE | 2017-08-29 14:24 | NUR ---
PHYSICAL THERAPY CO-SIGN The Physical Therapy Progress Notes documented by Grip Boss have been reviewed. I CONCUR W/SAFETY FIRE BOSS NOTE; CONT PER TX PLAN Reviewed/Co-Signed by: Dior Howard, PT Documentation Done by: CAN SHAIKH PTA Addendum: 08/29/17 at 1425 by Dior Howard PT Amended: Links added.
[2017-08-29] MEDS ORDERED: NORTRIPTYLINE 10 MG CAP PO SCH (15:13)
[2017-08-29] MEDS ORDERED: MAG SULF 2000 MG/WATER PREMIX 50 ML IV SCH (15:16)
--- NOTE | 2017-08-29 15:30 | NUR ---
PATIENT SITTING IN BED WATCHING TV. NO DISTRESS NOTED. DENIES ANY PAIN. CONDITION UNCHANGED. WILL CONTINUE TO MONITOR.
[2017-08-29 16:00] VITALS: BP 134/62
[2017-08-29] MEDS: NICOTINE TRANSD SYS 21 MG/24 HR PATCH TD SCH (17:22)
--- NOTE | 2017-08-29 18:00 | NUR ---
PATIENT SITTING IN BED WITH DINNER TRAY IN FRONT. NO DISTRESS NOTED. DENIES ANY PAIN. CONDITION UNCHANGED. WILL CONTINUE TO MONITOR.
--- NOTE | 2017-08-29 19:25 | NUR ---
GAVE REPORT TO FURNACE SETTER NURSE FOR CONTINUITY OF CARE. PATIENT IN STABLE CONDITION.
--- NOTE | 2017-08-29 19:26 | NUR ---
PATIENT REPORT RECEIVED FROM MORNING NURSE AT BEDSIDE. PATIENT IS AWAKE, ALERT AND ORIENTED. NO SIGNS AND SYMPTOMS OF DISTRESS NOTED. NO C/O PAIN AT THIS TIME. PATIENT IS ON ROOM AIR. IV SITE NOTED ON RIGHT HAND, IV FLUID INFUSING WELL. PLAN OF CARE DISCUSSED WITH PATIENT. PATIENT VERBALIZED UNDERSTANDING. BED IN LOWEST POSITION, SIDE RAILS UP AND CALL LIGHT WITHIN REACH. WILL CONTINUE TO MONITOR
[2017-08-29 20:00] VITALS: BP 123/62
--- NOTE | 2017-08-29 20:30 | NUR ---
MEDICATION EDUCATION GIVEN. PATIENT VERBALIZED UNDERSTANDING. MEDICATION ADMINISTERED ORDERED. PATIENT TOLERATED WELL. WILL CONTINUE TO MONITOR
--- NOTE | 2017-08-29 21:50 | NUR ---
PATIENT HAD 3 LOOSE BM SINCE BEGINNING OF SHIFT. NOTIFIED DR. FALLON. ORDERS RECEIVED.
[2017-08-29] MEDS ORDERED: LOPERAMIDE 2 MG CAP PO SCH (22:00)
--- NOTE | 2017-08-29 23:30 | NUR ---
CHECKED ON PATIENT. PATIENT IS ASLEEP. NO SIGNS AND SYMPTOMS OF DISTRESS NOTED. BREATHING EVEN AND UNLABORED. WILL CONTINUE TO MONITOR
[2017-08-30] VITALS: BP 120/65
--- NOTE | 2017-08-30 01:15 | NUR ---
PATIENT REPORT GIVEN TO CHARGE NURSE OMAIRA AT BEDSIDE FOR CONTINUITY OF CARE. PATIENT IS IN STABLE CONDITION
--- NOTE | 2017-08-30 01:20 | NUR ---
REPORT OF PT RECEIVED FROM [place].PT IS STABLE W/NO S/S OF ANY DISTRESS.WILL CONTINUE MONITORING.
[2017-08-30 04:00] VITALS: BP 122/64
[2017-08-30] MEDS: NACL 0.9% 1,000 ML IV SCH ×2 (04:12→16:03)
--- NOTE | 2017-08-30 04:47 | NUR ---
SLEEPING.VS STABLE.IVF INFUSING WELL.HR IS SR.NO DISTRESS NOTED.
[2017-08-30] MEDS: LORazepam 1 MG TAB PO SCH ×2 (05:09→12:45)
[2017-08-30] MEDS: BLOOD GLUCOSE MONITORING 1 DEV DEV FS SCH ×3 (06:41→16:46)
--- NOTE | 2017-08-30 06:43 | NUR ---
SLEPT WELL.BS=99 NO COVERAGE NEEDED.
--- NOTE | 2017-08-30 06:44 | NUR ---
HAD LOOSE BM.
[2017-08-30] MEDS: BUDESONIDE 0.25 MG/2 ML NEBU INH SCH (06:53)
--- NOTE | 2017-08-30 07:15 | NUR ---
RECEIVED REPORT FROM HOT WALKER RN. PATIENT IS RESTING IN BED, AROUSABLE BY VOICE. LUNGS CTA IN ALL ENAMORADO. HEART RHYTHM IS REGULAR. DENIES PAIN AND DIZZINESS AT THIS TIME. NICOTINE PATCH ON RIGHT SHOULDER. IV IS PATENT AND RUNNING IVF PER MD ORDERS. PATIENT IS VOIDING. ALL SAFETY MEASURES IN PLACE, CALL LIGHT WITHIN REACH. WILL CONTINUE TO MONITOR.
[2017-08-30 08:00] VITALS: BP 160/71
[2017-08-30] MEDS: HYDROCHLOROTHIAZIDE 25 MG TAB PO SCH (08:21)
[2017-08-30] MEDS: TAMSULOSIN 0.4 MG CAP PO SCH (08:21)
[2017-08-30] MEDS: FOLIC ACID 1 MG TAB PO SCH (08:21)
[2017-08-30] MEDS: MULTIVITAMIN 1 TAB PO SCH (08:22)
[2017-08-30] MEDS: THIAMINE 100 MG TAB PO SCH (08:22)
[2017-08-30] MEDS: DOCUSATE SODIUM 100 MG GELCAP PO SCH (08:27)
--- NOTE | 2017-08-30 08:30 | NUR ---
PATIENT SITTING IN BED, NO DISTRESS NOTED. DENIES ANY PAIN. SCHEDULED MEDICATIONS DUE GIVEN. SAFETY MEASURES IN PLACE, CALL LIGHT WITHIN REACH. WILL CONTINUE TO MONITOR.
[2017-08-30] MEDS ORDERED: NORTRIPTYLINE 10 MG CAP PO SCH (09:00)
[2017-08-30 09:01] LABS: BASOPHILS % (AUTO) 0.6 % (0.0-2.0); EOSINOPHILS # (AUTO) 0.1 K/uL (0-0.4); EOSINOPHILS % (AUTO) 2.2 % (0.0-4.0); HEMATOCRIT 33.8 % (36-48); HEMOGLOBIN 11.1 g/dL (12.0-16.0); LYMPHOCYTES # (AUTO) 1.7 K/uL (2.5-16.5); MEAN CORPUSCULAR HEMOGLOBIN 29 pg (27-31); MEAN CORPUSCULAR HGB CONC 33 g/dL (33-37); MEAN CORPUSCULAR VOLUME 89.2 fL (80-94); MONOCYTES # (AUTO) 0.4 K/uL (0.8-1.0); MONOCYTES % (AUTO) 8.3 % (1.7-9.3); NEUTROPHILS # (AUTO) 2.5 K/uL (1.8-7.7); NEUTROPHILS % (AUTO) 52.9 % (42.2-75.2); PLATELET COUNT (AUTO) 173 K/uL (140-450); RED BLOOD CELL COUNT(AUTO) 3.79 MIL/uL (4.20-5.40); RED CELL DISTRIBUTION WIDTH 15.6 % (11.6-13.7); WHITE BLOOD COUNT (AUTO) 4.7 K/uL (4.8-10.8)
[2017-08-30 09:32] LABS: ANION GAP 12.3 (8-16); CARBON DIOXIDE 27.8 mmol/L (21-32); CHLORIDE 108 mmol/L (98-107); CREATININE 0.9 mg/dL (0.6-1.3); GLUCOSE 98 mg/dL (74-106); POTASSIUM 4.1 mmol/L (3.5-5.1); SODIUM SERUM 144 mmol/L (136-145); UREA NITROGEN, BLOOD 9 mg/dL (7-18)
[2017-08-30 09:33] LABS: MAGNESIUM 2.1 mg/dL (1.8-2.4); PHOSPHORUS 3.5 mg/dL (2.5-4.9)
[2017-08-30] MEDS ORDERED: MECL-272 PO (11:38)
[2017-08-30] MEDS ORDERED: PAM10 PO (11:38)
[2017-08-30] MEDS ORDERED: PUL.25N INH (11:38)
[2017-08-30] MEDS ORDERED: ORE25 PO (11:38)
--- NOTE | 2017-08-30 12:45 | NUR ---
SCHEDULED MEDICATION GIVEN AT THIS TIME PER MD ORDERS. PATIENT IS IN STABLE CONDITION WITH NO COMPLAINTS OF PAIN. WILL CONTINUE TO MONITOR.
--- NOTE | 2017-08-30 13:50 | NUR ---
PATIENT IS RESTING IN BED WITH NO COMPLAINTS OF PAIN OR DIZZINESS. ALL SAFETY MEASURES IN PLACE. WILL CONTINUE TO MONITOR.
--- NOTE | 2017-08-30 15:34 | NUR ---
[facility] [phone] CALLED AND ARRANGED WHEELCHAIR TRANSPORT TO [facility] 7PM PER MIRTA.
--- NOTE | 2017-08-30 15:40 | NUR ---
SON SPOKE WITH PATIENT AND IS AWARE OF PATIENT BEING TRANSFERRED TO [facility]. WILL CONTINUE TO MONITOR.
[2017-08-30] MEDS ORDERED: PNEUMOCOCCAL VACCINE 23 MCG/0.5 ML VIAL IMVAC SCH (15:50)
--- NOTE | 2017-08-30 15:51 | NUR ---
CALLED PATIENT SON LISA AND NOTIFIED HIM THAT PATIENT WAS ARRANGED FOR TRANSFER TO [facility] WITH [facility] AT 1900 LATER TODAY. ANSWERED ALL OF SON'S QUESTIONS REGARDING TRANSFER. PATIENT ALREADY AWARE OF TRANSPORT TO [facility] LATER TODAY. WILL CONTINUE TO MONITOR.
[2017-08-30 16:00] VITALS: BP 148/74
--- NOTE | 2017-08-30 16:03 | NUR ---
CALLED SHWETHA MCGRAW [phone] TO GIVE REPORT FOR PATIENT BEING TRANSFERRED LATER TODAY. REPORT GIVEN TO [place] FOR CONTINUITY OF CARE. ANSWERED ALL QUESTIONS REGARDING PATIENT CARE AND NOTIFIED WATER RESTORATION TECHNICIAN OF OUTSEWER TIME BY [facility] AT 1900. PATIENT PRESCRIPTIONS COMMUNICATED TO EMELIA. EMELIA VERBALIZED UNDERSTANDING. FACILITY AWAITING FOR PATIENT TO BE TRANSFERRED LATER TODAY. WILL CONTINUE TO MONITOR.
[2017-08-30] MEDS: NICOTINE TRANSD SYS 21 MG/24 HR PATCH TD SCH (16:46)
--- NOTE | 2017-08-30 16:50 | NUR ---
PNEUMOVAX ADMINISTERED TO PATIENT. VACCINE TEACHING GIVEN TO PATIENT. PATIENT VERBALIZED COMPLETE UNDERSTANDING.
--- NOTE | 2017-08-30 17:30 | NUR ---
DISCHARGE PAPERWORK, ALONG WITH DISCHARGE INSTRUCTIONS AND TEACHING, GIVEN TO PATIENT. NEW PRESCRIPTIONS COMMUNICATED TO PATIENT. PATIENT VERBALIZED UNDERSTANDING OF ALL DISCHARGE INSTRUCTIONS AND THE PLAN OF CARE TO BE CARRIED OUT AT [facility]. PATIENT IS IN STABLE CONDITION AND WAITING FOR TRANSFER TO [facility].
--- NOTE | 2017-08-30 19:00 | NUR ---
[facility] HERE TO PLASTICS WORKER PATIENT FOR TRANSFER TO [facility]. IV CANNULA REMOVED WITH MINIMAL BLOOD LOSS AND LUMEN COMPLETELY INTACT. ID BANDS REMOVED. PATIENT IS IN STABLE CONDITION. ALL PERSONAL BELONGINGS ARE WITH PATIENT.
== END 2017-08-30 19:00 | DRG 73 ==
LOC: MED 19:00 → MTU 08-27 00:33
PROVIDERS: ADMIT General Practice; ATTEND General Practice
PROC: 3E0234Z Introduction of Serum, Toxoid and Vaccine into Muscle, Percutaneous Approach (ICD-10-PCS; principal; 2017-08-30)
DX: G90.9 Disorder of the autonomic nervous system, unspecified (principal); G92 Toxic encephalopathy; N17.0 Acute kidney failure with tubular necrosis; N39.0 Urinary tract infection, site not specified; F10.239 Alcohol dependence with withdrawal, unspecified; I16.0 Hypertensive urgency; E87.6 Hypokalemia; E83.42 Hypomagnesemia; F17.210 Nicotine dependence, cigarettes, uncomplicated; J44.9 Chronic obstructive pulmonary disease, unspecified; E86.0 Dehydration; F10.229 Alcohol dependence with intoxication, unspecified; E11.51 Type 2 diabetes mellitus with diabetic peripheral angiopathy without gangrene; F32.9 Major depressive disorder, single episode, unspecified; M41.9 Scoliosis, unspecified; Y90.0 Blood alcohol level of less than 20 mg/100 ml; Z23 Encounter for immunization
CPT/HCPCS: 36415; 70450; 71045; 73030; 73080; 76770; 80048; 80053; 80305; 81001; 82140; 82150; 82306; 82948; 83036; 83690; 83735; 83880; 84100; 84439; 84443; 84484; 85025; 85610; 85730; 87081; 87086; 90732; 93005; 93880; 93970; 94640; 96360; 96361; 97110; 97116; 97140; 97530; 99285; G0482; J0696; J1815; J3475; J7030; J7060; J7620; J7626; J8597; Q0092

== ENCOUNTER 2018-06-27 12:26 | Inpatient (IN) | payer OTHER ==
[~2018-06-27] VITALS: Ht 157.5 cm; Wt 54.0 kg
[~2018-06-27 12:26] MED LIST: MECL-272 PO; ORE25 PO; PAM10 PO; PUL.25N INH
--- NOTE | 2018-06-27 12:26 | NUR ---
Patient BIBA ACLS, transferred to bed 7. RN evaluating patient at bedside.
[2018-06-27 12:30] VITALS: BP 152/79
--- NOTE | 2018-06-27 12:34 | NUR ---
PT BIBA C/O FALL SECONDARY TO DIZZYNESS. PT WAS CROSSING STREET FELT DIZZY AND FELL ON LT KNEE AND RT FOREHEAD. PT DENEIS DIZZYNESS AT THIS TIME. PT DENEIS LOSS OF CONSCIOUSNESS, AAOX4, COOPERATIVE, FACIAL SYMMETRY INTACT, PERRLA, BILATERAL HAND PHARMACY CARE COORDINATOR EQUAL/STRONG, UNSTEADY GAIT, SPEECH IS CLEAR. HEMATOMA PRESENT ON RT FOREHEAD AND ABRASION PRESENT ON LT KNEE. LT LEG +CMS. VSS. ER MD TO SEE PT MEDHX:HTN: RX:UNABLE TO NAME MEDS
--- NOTE | 2018-06-27 13:10 | NUR ---
XRAY AT BEDSIDE
--- NOTE | 2018-06-27 13:16 | NUR ---
Patient taken to CT scan via gurney by [facility].
[2018-06-27 13:17] LABS: ANION GAP 21.4 (8-16); CARBON DIOXIDE 20.2 mmol/L (21-32); CHLORIDE 103 mmol/L (98-107); CREATININE 1.1 mg/dL (0.6-1.3); GLUCOSE 98 mg/dL (74-106); POTASSIUM 3.6 mmol/L (3.5-5.1); SODIUM SERUM 141 mmol/L (136-145); UREA NITROGEN, BLOOD 14 mg/dL (7-18)
[2018-06-27 13:21] LABS: BASOPHILS # (AUTO) 0.1 K/uL (0.00-0.22); BASOPHILS % (AUTO) 1.1 % (0.0-2.0); EOSINOPHILS # (AUTO) 0.1 K/uL (0-0.4); EOSINOPHILS % (AUTO) 1.6 % (0.0-4.0); HEMATOCRIT 37.4 % (36-48); LYMPHOCYTES # (AUTO) 2.2 K/uL (2.5-16.5); LYMPHOCYTES % (AUTO) 33.7 % (20.5-51.1); MEAN CORPUSCULAR HEMOGLOBIN 30 pg (27-31); MEAN CORPUSCULAR HGB CONC 32 g/dL (33-37); MEAN CORPUSCULAR VOLUME 92.2 fL (80-94); MONOCYTES # (AUTO) 0.4 K/uL (0.8-1.0); NEUTROPHILS # (AUTO) 3.6 K/uL (1.8-7.7); NEUTROPHILS % (AUTO) 56.6 % (42.2-75.2); PLATELET COUNT (AUTO) 256 K/uL (140-450); RED BLOOD CELL COUNT(AUTO) 4.06 MIL/uL (4.20-5.40); WHITE BLOOD COUNT (AUTO) 6.4 K/uL (4.8-10.8)
[2018-06-27 13:22] LABS: ALBUMIN 3.7 g/dL (3.4-5.0); ASPARTATE AMINOTRANSFERASE 55 U/L (15-37); LIPASE 248 U/L (73-393); TOTAL BILIRUBIN 0.2 mg/dL (0.0-1.0)
[2018-06-27 13:29] LABS: CREATINE KINASE MB 1.1 ng/mL (0-3.6)
--- NOTE | 2018-06-27 13:30 | NUR ---
Patient returned from CT scan. RN re-evaluating patient at bedside.
--- NOTE | 2018-06-27 13:38 | NUR ---
PT AMBULATED TO BATHROOM TO GIVE URINE SAMPLE. GAIT STEDAY, PT DENIES DIZZYNESS. PT ASKING TO GO OUTSIDE FOR FRESH AIR, INFORMED PT THAT SHE SHOULD STAY INSIDE UNTIL DISCHARGED.
--- NOTE | 2018-06-27 13:45 | NUR ---
PT UNABLE TO PROVIDE URINE AT THIS TIME, WILD GARCÍA MADE AWARE.
--- NOTE | 2018-06-27 14:10 | NUR ---
PT WAS NOT IN BED, PT WENT OUTSIDE TO SMOKE CIGARRETE, FOUND PT IN LOBBY SITTING IN CHAIR STATING THAT SHE IS DIZZY. WHEELCHAIRED BACK TO ROOM. VSS.
--- NOTE | 2018-06-27 14:28 | NUR ---
LISA KHALIL INSERTING STRIAGHT CATH FOR URINE SAMPLE AT THIS TIME.
[2018-06-27 15:05] LABS: APPEARANCE,URINE CLEAR (CLEAR); BILIRUBIN,URINE NEGATIVE (NEGATIVE); BLOOD, URINE NEGATIVE (NEGATIVE); COLOR,URINE YELLOW (YELLOW); LEUKOCYTE ESTERASE ,URINE NEGATIVE (NEGATIVE); NITRITE, URINE NEGATIVE (NEGATIVE); UGLUCOSE NEGATIVE (NEGATIVE)
[2018-06-27 15:08] LABS: BARBITURATE, URINE NEG. ng/ml (NEG <=200); BENZODIAZEPINE, URINE NEG. ng/mL (NEG <=200); CANNABINOID, URINE NEG. ng/mL (NEG <=50); COCAINE, URINE NEG. ng/mL (NEG <=300); OPIATE, URINE NEG. ng/mL (NEG <=2000); PHENCYCLIDINE SCREEN,URINE NEG. ng/mL (NEG <=25)
[2018-06-27] MEDS ORDERED: BACITRACIN OINT 500 UNITS/GM PKT TP ONE (15:30)
--- NOTE | 2018-06-27 15:43 | NUR ---
PROVIDED WC FOR PT LT KNEE ABRASION. CLEANSED W/ NS, PATTED DRY, APPLIED BACITRACIN, COVERED WITH NON-ADHEARNT GAUZE, AND SECURED W/ TAPE. PT TOLERATED WELL.
[2018-06-27] MEDS ORDERED: MORPHINE SULFATE 2 MG/ML SYR IVP PRN (15:55)
[2018-06-27] MEDS ORDERED: HYDROcodone/APAP 5/325 MG 1 TAB TAB PO PRN (15:55)
[2018-06-27] MEDS ORDERED: ACETAMINOPHEN 325 MG TAB PO PRN (15:55)
[2018-06-27] MEDS ORDERED: LORazepam 2 MG/ML VIAL IM/IVP PRN (15:55)
[2018-06-27] MEDS ORDERED: DOCUSATE SODIUM 100 MG GELCAP PO PRN (15:55)
[2018-06-27] MEDS ORDERED: ONDANSETRON 4 MG/2 ML VIAL IM/IVP PRN (15:55)
[2018-06-27] MEDS ORDERED: DEXTROSE 50% 50 ML SYR IVP PRN (16:00)
[2018-06-27] MEDS ORDERED: INSULIN LISPRO SLIDING SCALE 100 UNITS/ML VIAL SUBQ PRN (16:00)
--- NOTE | 2018-06-27 16:02 | NUR ---
US AT BEDSIDE AT THIS TIME
[2018-06-27 16:20] LABS: PROTHROMBIN TIME 9.9 secs (10.8-13.4)
[2018-06-27 16:28] LABS: PHOSPHORUS 3.6 mg/dL (2.5-4.9); THYROID STIMULATING HORMONE 0.51 uIU/mL (0.34-3.74)
[2018-06-27] MEDS: BLOOD GLUCOSE MONITORING 1 DEV DEV FS SCH ×2 (16:30→21:00)
--- NOTE | 2018-06-27 16:49 | NUR ---
PT PENDING ADMIT. PT IS FALL RISK, SO MED/SURG HAS TO MOVE PT AROUND TO GET PT A ROOM NEXT TO NURSES STATION.
--- NOTE | 2018-06-27 17:15 | NUR ---
RECEIVED PT FROM ED NURSE IVETT. PT IS AWAKE AND ALERT, EATING A LATE LUNCH AT THIS TIME. PT IS AMBULATORY WITHOUT ASSISTANCE, AND NO C/O ANY DIZZINESS OR SOB. SKIN IS INTACT ASIDE FROM THE TWO SUPERFICIAL ABRASIONS ON HER L KNEE R/T HER FALL, PHOTO DOCUMENTED. PT IS ON ROOM AIR. IV SITE IS ON THE LFA, 20 G, PATENT AND INTACT. FALL PRECAUTIONS INITIATED, PT ORIENTED TO HER ROOM AND CALL LIGHT. WILL CONTINUE TO MONITOR.
--- NOTE | 2018-06-27 17:15 | NUR ---
Patient will be admitted to care of DR ROSALES. Admited to MED/SURG VIA MARK W/ VSS. Will go to room 121B. Belongings list completed. Report to SAI KHALIL.
[2018-06-27 17:45] VITALS: BP 165/80
[2018-06-27] MEDS: NACL 0.9% 1,000 ML IV SCH (18:53)
--- NOTE | 2018-06-27 19:20 | NUR ---
RECEIVED REPORT FROM YADIRA KHALIL DAYSHIFT NURSE AT BEDSIDE FOR CONTINUITY OF CARE, PT IN STABLE CONDITION.
--- NOTE | 2018-06-27 19:20 | NUR ---
PT ENDORSED TO RN FACULTY IN STABLE CONDITION.
[2018-06-27] MEDS ORDERED: hydrALAZINE 20 MG/ML VIAL IVP PRN (19:35)
[2018-06-27] MEDS ORDERED: METOPROLOL 25 MG TAB PO SCH ×3 (19:35→20:00)
--- NOTE | 2018-06-27 20:00 | NUR ---
PT IN ROOM SHE IS AOX 3, AWARE OF WHERE SHE IS BUT NOT DATE AND DAY OF WEEK. PT PLEASANT AND COOPERATIVE. SHE HAS SUPERFICIAL REDNESS OF LEFT KNEE. SHE HAS NO C/O OF PAIN OR DISTRESS,. V/S FOLLOWS T 97.4 P 98 R 18 B/P 154/81 02 98% ON ROOM AIR. PT NOSE SWABBED FOR MRSA. PT ASKED TO WALK AROUND THE UNIT, BUT WAS REMINDED THAT SHE IS HERE FOR [place]NCOPE AND IS A FALLS RISK. PT DECLINED DINNER SAYING SHE IS FULL FROM LUNCH. FINGER STICK IS 120.
[2018-06-27] MEDS ORDERED: ALBUTEROL SULFATE/IPRATROPIU 3 ML SOL IH PRN (20:10)
[2018-06-27] MEDS ORDERED: MECLIZINE 25 MG TAB PO PRN (20:10)
--- NOTE | 2018-06-27 20:20 | NUR ---
PT FOUND WANDERING IN [place] AND WAS REMINDED THAT SHE NEEDS TO STAY IN HER ROOM FOR SAFETY AND MAYBE LATER SHE CAN HAVE SOMEONE WALK WITH HER IF SHE IS NOT FEELING DIZZY. PT AGREEABLE AND WAS ASSISTED WITH HOW TO USE TV IN ROOM. ALL FALLS PRECAUTIONS IN PLACE.
[2018-06-27 21:00] VITALS: BP 154/81
[2018-06-27] MEDS ORDERED: NICOTINE TRANSD SYS 14 MG/24 HR PATCH TD SCH (21:00)
[2018-06-27] MEDS ORDERED: LACTULOSE 20 GM/30 ML UDC PO SCH (21:00)
--- NOTE | 2018-06-27 21:00 | NUR ---
PT GIVEN DUE MEDS OF LOPRESSOR, LACTULOSE AND NICOTINE PATCH ORDERED. PT DID I REFUSE HEPARIN SHOT RISKS AND BENEFITS EXPLAINED. PT HAD NO C/O VOICED AT THIS TIME. WILL CONTINUE TO MONITOR FO B/P AND SAFETY. ALL FALLS PRECAUTIONS IN PLACE.
[2018-06-28] VITALS: BP 145/63
--- NOTE | 2018-06-28 00:30 | NUR ---
PT IN BED SLEEPING NO S/S OF PAIN OR DISTRESS NOTED.ALL FALLS PRECAUTIONS IN PLACE AND V/S FOLLOWS T 98.9 P 58 R 18 B/P 145/63 02 96% ON ROOM AIR.
--- NOTE | 2018-06-28 03:00 | NUR ---
PT IN BED SLEEPING NO S/S OF PAIN OR DISTRESS NOTED. ALL FALLS PRECAUTIONS IN PLACE.
[2018-06-28 04:00] VITALS: BP 153/61
[2018-06-28] MEDS: BLOOD GLUCOSE MONITORING 1 DEV DEV FS SCH ×2 (05:25→11:30)
[2018-06-28] MEDS ORDERED: HYDROCHLOROTHIAZIDE 25 MG TAB PO SCH (06:30)
[2018-06-28 06:40] LABS: ANION GAP 13.1 (8-16); CARBON DIOXIDE 28.4 mmol/L (21-32); CHLORIDE 105 mmol/L (98-107); CREATININE 1.3 mg/dL (0.6-1.3); GLUCOSE 89 mg/dL (74-106); POTASSIUM 4.5 mmol/L (3.5-5.1); SODIUM SERUM 142 mmol/L (136-145); UREA NITROGEN, BLOOD 17 mg/dL (7-18)
[2018-06-28 06:43] LABS: BASOPHILS % (AUTO) 0.7 % (0.0-2.0); EOSINOPHILS # (AUTO) 0.1 K/uL (0-0.4); EOSINOPHILS % (AUTO) 1.3 % (0.0-4.0); HEMATOCRIT 35.4 % (36-48); HEMOGLOBIN 11.5 g/dL (12.0-16.0); LYMPHOCYTES # (AUTO) 2.4 K/uL (2.5-16.5); LYMPHOCYTES % (AUTO) 35.6 % (20.5-51.1); MEAN CORPUSCULAR HEMOGLOBIN 30 pg (27-31); MEAN CORPUSCULAR HGB CONC 33 g/dL (33-37); MEAN CORPUSCULAR VOLUME 92.2 fL (80-94); MONOCYTES # (AUTO) 0.6 K/uL (0.8-1.0); MONOCYTES % (AUTO) 8.6 % (1.7-9.3); NEUTROPHILS # (AUTO) 3.7 K/uL (1.8-7.7); NEUTROPHILS % (AUTO) 53.8 % (42.2-75.2); PLATELET COUNT (AUTO) 157 K/uL (140-450); RED BLOOD CELL COUNT(AUTO) 3.84 MIL/uL (4.20-5.40); RED CELL DISTRIBUTION WIDTH 16.1 % (11.6-13.7); WHITE BLOOD COUNT (AUTO) 6.8 K/uL (4.8-10.8)
[2018-06-28 06:44] LABS: MAGNESIUM 1.7 mg/dL (1.8-2.4); PHOSPHORUS 3.7 mg/dL (2.5-4.9)
[2018-06-28 07:00] LABS: CHOL/HDL RATIO 2.1 (1-4.5)
[2018-06-28 07:07] LABS: T4 (THYROXINE) 7.2 ug/dL (4.5-12.0)
--- NOTE | 2018-06-28 07:25 | NUR ---
CARE ENDORSED TO AM SHIFT, PT IN STABLE CONDITION.
--- NOTE | 2018-06-28 07:26 | NUR ---
RECEIVED BEDSIDE REPORT FROM NIGHTSHIFT RN. PT IN STABLE POSITION. IV SITE PATENT, CLEAN, INTACT. INFUSING PER ORDERS. REVIEWED PLAN OF CARE WITH PATIENT. PT VERBALIZES UNDERSTANDING. PT ABLE TO MAKE NEEDS KNOWN. CALL LIGHT WITHIN REACH. BED IN LOWEST POSITION.
[2018-06-28 08:00] VITALS: BP 144/67
--- NOTE | 2018-06-28 08:10 | NUR ---
AWAKE AND ALERT VERBALLY RESPONSIVE NO SOB NOTED SPORTING GOODS SALES ASSOCIATE TO ATTEMPT [facility] THERAPY AND RESPIRATORY DRUG AT A LATER TIME
--- NOTE | 2018-06-28 08:42 | NUR ---
PATIENT HAS BEEN SCREENED AND CATEGORIZED MODERATE NUTRITION RISK. PATIENT WILL BE SEEN WITHIN 3-5 DAYS OF ADMISSION. 06/30/18[address]
[2018-06-28] MEDS ORDERED: NICOTINE TRANSD SYS 14 MG/24 HR PATCH TD SCH (09:00)
--- NOTE | 2018-06-28 09:01 | NUR ---
GIVEN SCHEDULED MEDS. PT TOLERATED WELL. WILL CONTINUE TO MONITOR.
--- NOTE | 2018-06-28 09:30 | NUR ---
PHYSICAL THERAPY AT BEDSIDE FOR AMBULATION PRODUCT SAFETY COMPLIANCE LEADER TO ATTEMPT [facility] THERAPY AND RESPIRATORY DRUG AT A LATER TIME NO SOB NOTED
[2018-06-28] MEDS: ALBUTEROL SULFATE/IPRATROPIU 3 ML SOL IH SCH ×2 (10:05→14:08)
[2018-06-28] MEDS ORDERED: MULTIVITAMIN-12 10 ML, THIAMINE 100 MG, FOLIC ACID 1 MG, MAGNESIUM SULFATE 50% 2,000 MG... IV SCH ×5 (10:30)
[2018-06-28] MEDS: NACL 0.9% 1,000 ML IV SCH (11:30)
--- NOTE | 2018-06-28 11:36 | NUR ---
PATIENT SITTING IN BED. NO DISTRESS NOTED. SCHEDULED MEDICATIONS DUE GIVEN. WILL CONTINUE TO MONITOR.
[2018-06-28 12:00] VITALS: BP 130/61
--- NOTE | 2018-06-28 12:21 | NUR ---
PATIENT FEELING ANXIOUS, TRYING TO CLIMB OUT WINDOW. FAMILY MEMBERS AT BEDSIDE. ATIVAN GIVEN AT THIS TIME. WILL CONTINUE TO MONITOR.
--- NOTE | 2018-06-28 14:30 | NUR ---
PATIENT SITTING IN BED. NO DISTRESS NOTED. WALKS AROUND [facility] INTERMITTENTLY WITH STEADY GAIT. WILL CONTINUE TO MONITOR.
[2018-06-28 16:00] VITALS: BP 121/55
--- NOTE | 2018-06-28 16:00 | NUR ---
PATIENT'S IV WAS LEAKING. IV WAS REMOVED, CATHETER INTACT. NO ACTIVE BLEEDING SEEN
--- NOTE | 2018-06-28 16:00 | NUR ---
GAVE REPORT TO SIMRAN KIRKLAND FOR CONTINUITY OF CARE. PATIENT IN STABLE CONDITION.
--- NOTE | 2018-06-28 16:05 | NUR ---
PATIENT FOUND TRYING TO OPEN DOORS TO FRONT LOBBY PER WEIGHT LOSS CONSULTANT. PATIENT STATED SHE WANTED TO TAKE SOME FRESH AIR. PATIENT WAS EXPLAINED THE SHE CAN ONLY AMBULATE AROUND THE NURSING STATION. PATIENT WAS ESCORTED BACK TO THE ROOM. NO DISTRESS NOTED AT THIS TIME
--- NOTE | 2018-06-28 16:30 | NUR ---
PATIENT OPENED THE EMERGENCY EXIT DOOR AND WENT OUTSIDE. PATIENT WAS FOUND IN FRONT OF EXIT DOOR. SECURITY WAS CALLED. PATIENT WAS INSTRUCTED THAT SHE CANNOT BE OUTSIDE PER HOSPITAL POLICY. PATIENT STATED SHE WANTED TO BE LEFT ALONE, AND SHE WANTED TO CHECK HERSELF OUT. PATIENT WAS EXPLAINED THAT SHE NEEDS TO SIGN AN AMA FORM. SHE AGREED. PATIENT WAS ESCORTED BACK TO HER ROOM BY SECURITY. PATIENT'S SON WAS CALLED AND LEFT VOICEMAIL REGARDING THE SITUATION. PATIENT SIGNED AMA FORM. DR. CASTILLO WAS MADE AWARE. Addendum: 06/28/18 at 1733 by Rachna Leiva RN RISKS OF LEAVING AMA WAS EXPLAINED TO PATIENT. PATIENT VERBALIZED UNDERSTANDING AND CONTINUE TO SIGN AMA FORM.
--- NOTE | 2018-06-28 17:32 | NUR ---
PATIENT WAS ESCORTED OUT BY SECURITY, AMBULATORY WITH STEADY GAIT. PATIENT IS STABLE AT THIS TIME
--- NOTE | 2018-06-28 17:50 | NUR ---
PATIENT COMPLAINED OF SEVERE HEADACHE, 12/16. MEDS WERE GIVEN PER ORDER. CALL LIGHT WITHIN REACH Addendum: 06/28/18 at 1751 by Rachna Leiva RN WRONG PATIENT
[2018-06-29] MEDS ORDERED: HYDROCHLOROTHIAZIDE 25 MG TAB PO SCH (09:00)
== END 2018-06-28 17:30 | disposition left against medical advice (07) | DRG 73 ==
LOC: MED 12:26 → MTU 15:51
PROVIDERS: ADMIT General Practice; ATTEND General Practice
DX: G90.8 Other disorders of autonomic nervous system (principal); G92 Toxic encephalopathy; D68.59 Other primary thrombophilia; J44.9 Chronic obstructive pulmonary disease, unspecified; E11.9 Type 2 diabetes mellitus without complications; I10 Essential (primary) hypertension; S09.90XA Unspecified injury of head, initial encounter; F17.210 Nicotine dependence, cigarettes, uncomplicated; S80.02XA Contusion of left knee, initial encounter; F32.9 Major depressive disorder, single episode, unspecified; M41.9 Scoliosis, unspecified; I70.209 Unspecified atherosclerosis of native arteries of extremities, unspecified extremity; Z53.21 Procedure and treatment not carried out due to patient leaving prior to being seen by health care provider; F10.10 Alcohol abuse, uncomplicated; W18.30XA Fall on same level, unspecified, initial encounter; Z79.899 Other long term (current) drug therapy; Y93.89 Activity, other specified; Y92.89 Other specified places as the place of occurrence of the external cause; Y99.8 Other external cause status; Z91.14 Patient's other noncompliance with medication regimen
CPT/HCPCS: 36415; 70450; 71045; 73562; 80048; 80053; 80305; 81003; 82140; 82150; 82550; 82553; 82948; 83036; 83690; 83735; 83880; 84100; 84436; 84443; 84484; 85025; 85610; 85730; 87081; 93005; 93880; 93925; 93970; 94640; 97116; 97161-GP; 99285; A9153; C1758; G0482; J1644; J1815; J2060; J3411; J3475; J3490; J7030; J7620; Q0092

== ENCOUNTER 2018-07-23 15:29 | Inpatient (IN) | payer OTHER ==
[~2018-07-23] VITALS: Ht 160 cm; Wt 67.6 kg
--- NOTE | 2018-07-23 15:39 | NUR ---
PT AMB TO RESTROOM FOR URINE SAMPLPE
[2018-07-23 15:43] VITALS: BP 114/94
--- NOTE | 2018-07-23 15:43 | NUR ---
PT BROUGHT IN BLS TO ER BED 02
--- NOTE | 2018-07-23 15:46 | NUR ---
72 Y FEMALE BIBA. PER [facility], PT WAS AT [place] WHEN SHE EXPERIENCED 2 SYNCOPAL EPISODES. WITNESSED, DAUGHTER IN LAW CALLED 911. PT DENIES HITTING HEAD. C/O LOWER BACK PAIN 12/16. BS 90 IN FIELD. 12 LEAD DONE IN FIELD, NSR. PT ALERT AND ORIENTED. VSS AT THIS TIME. BED IS DOWN, LOCKED, BED RAIL X 1, ERMD TO SEE PT. PMH- ALCOHOLISM, HTN, SCIOLOSIS MEDS- AMLODIPINE, NYSTOP, FUROSEEMIDE, LIDOCAINE PATCH, PANTOPRAZOLE, METROPROLOL, DICLOFENAC SODIUM GEL, MIRTAZEPINE
--- NOTE | 2018-07-23 15:48 | NUR ---
pt placed on monitoring and evaluation advisor
--- NOTE | 2018-07-23 16:11 | NUR ---
DR SHELL AT BEDSIDE FOR PT EVALUATION
[2018-07-23] MEDS ORDERED: DEXTROSE 50% 50 ML SYR IVP ONE (16:25)
--- NOTE | 2018-07-23 16:30 | NUR ---
XRAY AT BEDSIDE
--- NOTE | 2018-07-23 16:34 | NUR ---
accu check 87
[2018-07-23 16:50] LABS: BASOPHILS # (AUTO) 0.1 K/uL (0.00-0.22); BASOPHILS % (AUTO) 0.7 % (0.0-2.0); EOSINOPHILS # (AUTO) 0.2 K/uL (0-0.4); EOSINOPHILS % (AUTO) 1.5 % (0.0-4.0); HEMATOCRIT 33.6 % (36-48); HEMOGLOBIN 10.8 g/dL (12.0-16.0); LYMPHOCYTES % (AUTO) 18.6 % (20.5-51.1); MEAN CORPUSCULAR HEMOGLOBIN 29 pg (27-31); MEAN CORPUSCULAR HGB CONC 32 g/dL (33-37); MONOCYTES # (AUTO) 0.5 K/uL (0.8-1.0); NEUTROPHILS # (AUTO) 7.9 K/uL (1.8-7.7); NEUTROPHILS % (AUTO) 74.2 % (42.2-75.2); PLATELET COUNT (AUTO) 362 K/uL (140-450); RED BLOOD CELL COUNT(AUTO) 3.77 MIL/uL (4.20-5.40); RED CELL DISTRIBUTION WIDTH 15.8 % (11.6-13.7); WHITE BLOOD COUNT (AUTO) 10.7 K/uL (4.8-10.8)
--- NOTE | 2018-07-23 16:50 | NUR ---
PIV PLACED, AFTER D5 50 GIVEN, PT INSISTED ON PIV BEING REMOVED. PT STATED SHE DID NOT WANT PIV IN, SHE STATED IT HURTS AND TO LOOK AT HER OTHER ARM AND SEE WHAT MAYRA FRANKEL DID TO THAT ARM. PIV REMOVED AND PT WAS INFORMED IF MORE IV MEDS WERE ORDERED, NEW PIV WOULD NEED TO BE PLACED. PT STATED SHE UNDERSTOOD.
[2018-07-23 16:57] LABS: APPEARANCE,URINE HAZY (CLEAR); BILIRUBIN,URINE NEGATIVE (NEGATIVE); BLOOD, URINE NEGATIVE (NEGATIVE); COLOR,URINE YELLOW (YELLOW); LEUKOCYTE ESTERASE ,URINE 2+ (NEGATIVE); NITRITE, URINE NEGATIVE (NEGATIVE); UGLUCOSE NEGATIVE (NEGATIVE)
[2018-07-23 17:00] LABS: BARBITURATE, URINE NEG. ng/ml (NEG <=200); BENZODIAZEPINE, URINE NEG. ng/mL (NEG <=200); CANNABINOID, URINE NEG. ng/mL (NEG <=50); COCAINE, URINE NEG. ng/mL (NEG <=300); OPIATE, URINE NEG. ng/mL (NEG <=2000); PHENCYCLIDINE SCREEN,URINE NEG. ng/mL (NEG <=25)
[2018-07-23 17:01] LABS: ANION GAP 14.8 (8-16); CARBON DIOXIDE 28.6 mmol/L (21-32); CHLORIDE 106 mmol/L (98-107); CREATININE 1.1 mg/dL (0.6-1.3); GLUCOSE 94 mg/dL (74-106); POTASSIUM 4.4 mmol/L (3.5-5.1); SODIUM SERUM 145 mmol/L (136-145); UREA NITROGEN, BLOOD 19 mg/dL (7-18)
[2018-07-23 17:07] LABS: RBC,URINE 0-5 /HPF (0-5); WBC,URINE 20-60 /HPF (0-5)
[2018-07-23 17:07] LABS: ALBUMIN 3.7 g/dL (3.4-5.0); AMYLASE 95 U/L (25-115); ASPARTATE AMINOTRANSFERASE 20 U/L (15-37); LIPASE 176 U/L (73-393); MAGNESIUM 1.6 mg/dL (1.8-2.4); TOTAL BILIRUBIN 0.1 mg/dL (0.0-1.0)
--- NOTE | 2018-07-23 17:10 | NUR ---
PATIENT ARRIVED ON UNIT ACCOMPANIED BY ER NURSE LISA. PATIENT IS AOX4. DENIES PAIN AND SOB. NO SIGNS OF DISTRESS NOTED. IV ON RAC 20G, CLEAN AND INTACT, INFUSING PER MD ORDER. ORIENTED PATIENT TO THE ROOM, INSTRUCTED PATIENT ON HOW TO USE THE CALL LIGHT, TV, BED REMOTE, LIGHT AND BATHROOM. PATIENT VERBALIZED UNDERSTANDING. VITAL SIGNS TAKEN; TEMP 97.9. , BP140/75, DECPI571, AMI730, RR 18. BED IN LOW POSITION AND CALL LIGHT WITHIN REACH. TELE MONITOR ATTACHED. FALL PROTOCOL INITIALED. INSTRUCTED PATIENT TO USE THE CALL LIGHT FOR ANY ASSISTANCE AND PATIENT WAS AWARE.
[2018-07-23] MEDS ORDERED: NACL 0.9% 1,500 ML IV SCH (17:30)
--- NOTE | 2018-07-23 17:34 | NUR ---
PT AMB TO RESTROOM WITH ASSISTANCE
--- NOTE | 2018-07-23 17:38 | NUR ---
PT BEING TAKEN TO CT
[2018-07-23] MEDS ORDERED: PIPERACILLIN/TAZOBACTAM 3.375 GM in DEXTROSE 5% 50 ML IV ONE (17:45)
--- NOTE | 2018-07-23 17:49 | NUR ---
SON, LISA DILLON CALLED, WOULD LIKE HIS MOM TO CALL HER ONCE SHE RETURNS FROM [place]. HIS CELL PH IS [phone].
--- NOTE | 2018-07-23 17:57 | NUR ---
PT REFUSED IV PLACEMENT
--- NOTE | 2018-07-23 18:05 | NUR ---
PERIPHERAL IV PLACED, 22 G RIGHT AC. PT TOLERATED WELL.
[2018-07-23] MEDS ORDERED: ALBUTEROL SULFATE/IPRATROPIU 3 ML SOL IH PRN (18:10)
[2018-07-23] MEDS ORDERED: ACETAMINOPHEN 325 MG TAB PO PRN (18:10)
[2018-07-23] MEDS ORDERED: DOCUSATE SODIUM 100 MG GELCAP PO PRN (18:10)
[2018-07-23] MEDS ORDERED: MEDICATION REC. PHARMACY CONS. 1 EA MISC MC PRN (18:10)
[2018-07-23] MEDS ORDERED: MELATONIN 3 MG TAB PO PRN (18:10)
[2018-07-23] MEDS ORDERED: MECLIZINE 25 MG TAB PO PRN (18:10)
[2018-07-23] MEDS ORDERED: ONDANSETRON 4 MG/2 ML VIAL IM/IVP PRN (18:10)
[2018-07-23] MEDS ORDERED: PIPERACILLIN/TAZOBACTAM 3.375 GM VIAL IV ONE (18:23)
[2018-07-23 18:46] LABS: PROTHROMBIN TIME 10.4 secs (10.8-13.4)
--- NOTE | 2018-07-23 18:47 | NUR ---
US AT BEDSIDE
[2018-07-23] MEDS ORDERED: chlordiazePOXIDE 25 MG CAP PO SCH (18:50)
[2018-07-23 18:55] LABS: PHOSPHORUS 4.3 mg/dL (2.5-4.9); THYROID STIMULATING HORMONE 1.72 uIU/mL (0.34-3.74)
[2018-07-23] MEDS: ALBUTEROL SULFATE/IPRATROPIU 3 ML SOL IH SCH (19:00)
--- NOTE | 2018-07-23 19:09 | NUR ---
900 CC NS RUNNING UPON ADMIT
--- NOTE | 2018-07-23 19:10 | NUR ---
Patient will be admitted to care of [facility]. Admited to TELE. Will go to room 110B. Belongings list completed. Report to MAMI KHALIL.
--- NOTE | 2018-07-23 19:15 | NUR ---
MED REC NOT COMPLETED. PT STATES SHE DOES NOT KNOW THE DOSE OF HER MEDICATIONS. STATES HER FAMILY WILL BRING MED LIST
--- NOTE | 2018-07-23 19:29 | NUR ---
ENDORSED PATIENT AT BEDSIDE TO AND RESCUE FIRE FIGHTER CRASH FIRE NURSE FOR CONTINUITY OF CARE. PATIENT IS IN STABLE CONDITION.
[2018-07-23 19:30] VITALS: BP 140/75
--- NOTE | 2018-07-23 19:30 | NUR ---
RECEIVED BEDSIDE REPORT FROM DAY SHIFT NURSE. PATIENT IS AWAKE, ALERT, AND COOPERATIVE. RESPIRATION EVEN UNLABORED ON ROOM AIR. NO DISTRESS NOTED. SKIN IS WARM AND DRY. IV PATENT AND INTACT. LUNGS CLEAR ON AUSCULTATION. BOWEL SOUNDS PRESENT IN ALL 4 QUADRANT. LAST BM 07/23/18. DENIES PAIN. MRSA SCREEN DONE. PATIENT IS AMBULATORY. ORIENT PATIENT TO THE STAFF, CALL LIGHT, TV, AND ROOM. PLAN OF CARE WAS DISCUSSED. ALL SAFETY MEASURES IN PLACE. BED IS AT LOW POSITION. CALL LIGHT WITHIN REACH AND VERBALIZE ITS USE. WILL CONTINUE TO MONITOR.
[2018-07-23] MEDS: NACL 0.9% 1,000 ML IV SCH (19:46)
[2018-07-23] MEDS: MULTIVITAMIN-12 10 ML, THIAMINE 100 MG, MAGNESIUM SULFATE 50% 2,000 MG, FOLIC ACID 1 MG... IV SCH ×5 (20:04)
--- NOTE | 2018-07-23 20:42 | NUR ---
PATIENT REFUSES HHNTX. PATIENT HAS CLEAR BREATH SOUNDS. SATS ARE 97% ON ROOM A8IR. NO SOB IS NOTED
[2018-07-23] MEDS: chlordiazePOXIDE 25 MG CAP PO SCH (21:00)
--- NOTE | 2018-07-23 21:00 | NUR ---
ALL SCHEDULED MEDS WERE GIVEN AND TOLERATED THEM WELL. NO ASE NOTED. WILL CONTINUE TO MONITOR
[2018-07-23] MEDS ORDERED: cefTRIAXone 1,000 MG VIAL ONE (21:12)
--- NOTE | 2018-07-23 22:00 | NUR ---
PATIENT LAYING IN BED WATCHING TV RESPIRATION EVEN UNLABORED ON ROOM AIR. NO DISTRESS NOTED. WILL CONTINUE TO MONITOR
[2018-07-24] VITALS: BP 135/59
--- NOTE | 2018-07-24 | NUR ---
VITALS WERE TAKEN. PATIENT CONDITION STABLE. NO DISTRESS NOTED. WILL CONTINUE TO MONITOR
--- NOTE | 2018-07-24 01:05 | NUR ---
PATIENT HAVING DIFFICULTY OF FALLING ASLEEP. PRN SLEEPING AID ADMINISTER PER ORDER. WILL CONTINUE TO MONITOR.
--- NOTE | 2018-07-24 02:00 | NUR ---
CHECKED PATIENT. PATIENT SLEEPING RESPIRATION EVEN UNLABORED ON ROOM AIR. NO DISTRESS NOTED. WILL CONTINUE TO MONITOR.
[2018-07-24 04:00] VITALS: BP 137/74
--- NOTE | 2018-07-24 04:00 | NUR ---
VITALS WERE TAKEN. PATIENT CONDITION STABLE. NO DISTRESS NOTED. WILL CONTINUE TO MONITOR
[2018-07-24] MEDS: chlordiazePOXIDE 25 MG CAP PO SCH ×3 (04:45→21:02)
--- NOTE | 2018-07-24 07:19 | NUR ---
ENDORSED PATIENT TO DAY SHIFT NURSE FOR CONTINUITY OF CARE. PATIENT IS IN STABLE CONDITION.
--- NOTE | 2018-07-24 07:20 | NUR ---
RECIEVED REPORT FROM PM NURSE AT BEDSIDE, PT SITTING ON THE CHAIR. WENT TO RESTROOM. PT CAN AMBULATE. PT HAS RT AC 2 G, INFUSING BANANA BAG 75 ML/HR. SKIN IS INTACT. PT IS ON FALL RISK. INFORMED HER TO USE CALL LIGHT FOR ANY HELP. PT TO GET THE US OF ABDOMEN THIS AM. INFORMED PT NOT TO EAT DRINK ANYTHING, ONLY TO EAT AFTER SHE GET ABDOMEN US. VERBALIZED UNDERSTANDING. WILL CONTINUE TO MONITOR PT.
[2018-07-24] MEDS: ALBUTEROL SULFATE/IPRATROPIU 3 ML SOL IH SCH ×3 (07:34→19:05)
[2018-07-24 08:00] VITALS: BP 115/70
--- NOTE | 2018-07-24 08:34 | NUR ---
PATIENT HAS BEEN SCREENED AND CATEGORIZED MODERATE NUTRITION RISK. PATIENT WILL BE SEEN WITHIN 3-5 DAYS OF ADMISSION. 07/26/18-07/28/[address]
[2018-07-24] MEDS: NORTRIPTYLINE 10 MG CAP PO SCH (08:55)
[2018-07-24] MEDS: HYDROCHLOROTHIAZIDE 25 MG TAB PO SCH (08:55)
[2018-07-24] MEDS: LACTOBACILLUS RHAMNOSUS GG 1 EACH CAP PO SCH (08:55)
[2018-07-24] MEDS ORDERED: chlordiazePOXIDE 25 MG CAP PO SCH (09:00)
[2018-07-24 09:06] LABS: T4 (THYROXINE) 8.5 ug/dL (4.5-12.0)
[2018-07-24 09:24] LABS: BASOPHILS # (AUTO) 0.1 K/uL (0.00-0.22); BASOPHILS % (AUTO) 0.8 % (0.0-2.0); EOSINOPHILS # (AUTO) 0.2 K/uL (0-0.4); EOSINOPHILS % (AUTO) 2.2 % (0.0-4.0); HEMATOCRIT 29.5 % (36-48); HEMOGLOBIN 9.8 g/dL (12.0-16.0); LYMPHOCYTES # (AUTO) 2.5 K/uL (2.5-16.5); LYMPHOCYTES % (AUTO) 35.7 % (20.5-51.1); MEAN CORPUSCULAR HEMOGLOBIN 30 pg (27-31); MEAN CORPUSCULAR HGB CONC 33 g/dL (33-37); MEAN CORPUSCULAR VOLUME 88.9 fL (80-94); MONOCYTES # (AUTO) 0.6 K/uL (0.8-1.0); MONOCYTES % (AUTO) 8.2 % (1.7-9.3); NEUTROPHILS # (AUTO) 3.8 K/uL (1.8-7.7); NEUTROPHILS % (AUTO) 53.1 % (42.2-75.2); PLATELET COUNT (AUTO) 313 K/uL (140-450); RED BLOOD CELL COUNT(AUTO) 3.32 MIL/uL (4.20-5.40); RED CELL DISTRIBUTION WIDTH 15.3 % (11.6-13.7); WHITE BLOOD COUNT (AUTO) 7.1 K/uL (4.8-10.8)
--- NOTE | 2018-07-24 09:30 | NUR ---
ADMINISTERED MEDS TO PT ORDERED . TOLERATED WELL. NO DISTRESS NOTED ON THE PT. ALL SAEFTY MEASURE IN PLACE. PT ABLE TO WALK TO RESTROOM BY HERSELF. INFORMED PT THAT SHE MIGHT FALL , SO ASKED TO USE CALL LIGHT FOR ANY HELP. STATES WILL CALL USING CALL LIGHT. WILL CONTINUE TO MONITOR PT.
[2018-07-24 09:40] LABS: ANION GAP 13.5 (8-16); CARBON DIOXIDE 26.1 mmol/L (21-32); CHLORIDE 106 mmol/L (98-107); CREATININE 1.1 mg/dL (0.6-1.3); GLUCOSE 87 mg/dL (74-106); POTASSIUM 3.6 mmol/L (3.5-5.1); SODIUM SERUM 142 mmol/L (136-145); UREA NITROGEN, BLOOD 18 mg/dL (7-18)
[2018-07-24 10:32] LABS: CHOL/HDL RATIO 1.6 (1-4.5); MAGNESIUM 1.8 mg/dL (1.8-2.4); PHOSPHORUS 4.3 mg/dL (2.5-4.9)
[2018-07-24] MEDS: NACL 0.9% 1,000 ML IV SCH (11:28)
--- NOTE | 2018-07-24 11:55 | NUR ---
CHECKED ON THE PT. VS NOTED, NORMAL AT THIS TIME. PT TALKING WITH HER DAUGHTER ON HER PHONE. WILL CONTINUE TO MONITOR PT.
[2018-07-24 12:00] VITALS: BP 132/72
[2018-07-24 12:28] LABS: FOLIC ACID > 20.00 ng/mL (>3.0)
[2018-07-24 16:00] VITALS: BP 144/72
--- NOTE | 2018-07-24 16:00 | NUR ---
CHECKED ON THE PT. IV SITE INFILTRATED. PLACED NEW IV ION THE LFT FA 22G. IV ISTE IS PATENT AND INTACT. FAMILY MEMBER AT THE BEDSIDE. WILL CONTINUE TO MONITOR PT.
--- NOTE | 2018-07-24 17:28 | NUR ---
TALKED TO THE FAMILY MEMBER. PER DAUGHTER, SHWETHA MCGRAW IS READY TO ACCEPT THE PT WITH PT ASSISTANCE, NEEDS MD RECOMMENDATION. DR MONTANO MADE AWARE OF THE FAMILY CONCERN , WILL PASS INFORMATION TO DR. BOYD. INFORMED FAMILY MEMBER TO CALL TOMORROW IN BETWEEN 9-10 AM TO GET THE UPDATE. WILL PASS THE INFORMATION TO PM NURSE. PERSON TO NOTIFY IS HER SON WILMA GONZALEZ [phone]. PT FAMILY MEMBER ASKING TO BE CALLED BEFORE PT GETS DISCHARGED.
[2018-07-24] MEDS: MULTIVITAMIN-12 10 ML, THIAMINE 100 MG, MAGNESIUM SULFATE 50% 2,000 MG, FOLIC ACID 1 MG... IV SCH ×5 (18:53)
--- NOTE | 2018-07-24 19:15 | NUR ---
ENDORSED PT TO PM NURSE AT BEDSIDE. PT IN STABLE CONDITION.
[2018-07-24] MEDS: HYDROcodone/APAP 5/325 MG 1 TAB TAB PO PRN (19:27)
--- NOTE | 2018-07-24 19:28 | NUR ---
Received endorsement from AM shift RN; patient is A/Ox4, able to make needs known, ambulatory. Introduced self, updated board. No SOB or distress noted, on room air. IV site on left forearm, 22 gauge, running a banana bag at 75mL/hr. Patient complained of 5/10 right shoulder pain; administered PRN medication as ordered and per pain scale. Bed in the lowest position, call light within reach. Inital assessment done. Will continue to monitor.
--- NOTE | 2018-07-24 21:00 | NUR ---
Due meds given, tolerated well.
[2018-07-24 23:19] VITALS: BP 151/63
--- NOTE | 2018-07-24 23:54 | NUR ---
Vitals taken; patient watching TV. No SOB or distress noted.
[2018-07-25] MEDS: HYDROcodone/APAP 5/325 MG 1 TAB TAB PO PRN (00:08)
--- NOTE | 2018-07-25 01:25 | NUR ---
Checks made; patient asleep, eyes closed, visible chest rise and fall noted.
[2018-07-25] MEDS: NACL 0.9% 1,000 ML IV SCH (02:35)
--- NOTE | 2018-07-25 03:41 | NUR ---
Rounds done; no distress noted.
--- NOTE | 2018-07-25 04:45 | NUR ---
Assisted patient to bathroom, small BM noted at this time. Linens and chux changed.
[2018-07-25] MEDS: chlordiazePOXIDE 25 MG CAP PO SCH ×3 (04:46→21:31)
--- NOTE | 2018-07-25 05:40 | NUR ---
Frequent checks made; no SOB or distress noted.
--- NOTE | 2018-07-25 07:07 | NUR ---
Endorsed patient to AM shift RN for continuity of care; patient in stable condition.
[2018-07-25] MEDS: ALBUTEROL SULFATE/IPRATROPIU 3 ML SOL IH SCH ×3 (07:12→19:00)
--- NOTE | 2018-07-25 07:20 | NUR ---
RECEIVED PT REPORT FROM PRINTED CIRCUIT BOARD PANELS DEBURRER NURSE AT BEDSIDE, PT IS ALERT AND AWAKE, NO S/S OF ANY ACUTE DISTRESS OR SOB NOTED. PT IS ON ROOM AIR, SKIN INTACT. PT IS ON FALL PRECAUTIONS, HOWEVER, SHE IS ABLE TO AMBULATE INDEPENDENTLY AROUND THE ROOM. YELLOW GOWN AND NON-SLIP SOCKS ARE ON. IV SITE IS NOTED ON THE LFA, 22 G, INFUSING NS 60 ML/HR. CALL LIGHT IS WITHIN REACH. WILL CONTINUE TO MONITOR.
[2018-07-25 08:00] VITALS: BP 174/89
[2018-07-25 09:26] LABS: TRANSFERRIN 245 mg/dL (200-370)
[2018-07-25] MEDS: HYDROCHLOROTHIAZIDE 25 MG TAB PO SCH (09:35)
[2018-07-25] MEDS: LACTOBACILLUS RHAMNOSUS GG 1 EACH CAP PO SCH (09:36)
[2018-07-25] MEDS: NORTRIPTYLINE 10 MG CAP PO SCH (09:36)
--- NOTE | 2018-07-25 09:55 | NUR ---
SCHEDULED AM MEDS ADMINISTERED ORDERED. PT TOLERATED WELL.
--- NOTE | 2018-07-25 10:31 | NUR ---
DR HARMON AWARE OF PT'S BP 174/89 THIS MORNING. AFTER TAKING HER AM MEDS, PT'S BP WAS JUST RECHECKED AND IT IS 164/[address] HARMON AWARE.
[2018-07-25] MEDS: SODIUM CHLORIDE FLUSH 10 ML SYR IVF SCH ×2 (13:36→21:00)
[2018-07-25] MEDS ORDERED: LISINOPRIL 5 MG TAB PO SCH (14:00)
--- NOTE | 2018-07-25 14:42 | NUR ---
SCHEDULED LISINOPRIL ADMINISTERED FOR ELEVATED BP. WILL CONTINUE TO MONITOR PT. PT CURRENTLY SITTING IN A CHAIR IN THE HALLWAY AND READING A BOOK.
[2018-07-25 16:00] VITALS: BP 156/67
--- NOTE | 2018-07-25 18:26 | NUR ---
PT EATING DINNER AT THIS TIME.
--- NOTE | 2018-07-25 19:15 | NUR ---
PT ENDORSED TO VP SOFTWARE NURSE IN STABLE CONDITION.
--- NOTE | 2018-07-25 19:16 | NUR ---
RECD. SITTING ON BED, AWAKE, A/OX4. RESPIRATION EVEN AND UNLABORED. IV SALINE LOCK AT THE LEFT FOREARM G22, PATENT AND INTACT. DENIES PROBLEM WITH VOIDING AND BM. AMBULATING TO THE BR. PLAN OF CARE FOR THE SHIFT DISCUSSED. VERBALIZED UNDERSTANDING. DENIES PAIN 0/10.
--- NOTE | 2018-07-25 19:30 | NUR ---
Patient's Plan of Care was discussed and reviewed with DEFENCE FORCE MEMBER OTHER RANKS: VALERIA
--- NOTE | 2018-07-25 19:54 | NUR ---
CAESAR REFUSED HHNTX. STATES SHE DOESNT NEED THEM. BREATH SOUNDS ARE CLEAR AND SATS ON ROOM AIR 97%. NO SOB NOTED
[2018-07-25] MEDS: MULTIVITAMIN-12 10 ML, THIAMINE 100 MG, MAGNESIUM SULFATE 50% 2,000 MG, FOLIC ACID 1 MG... IV SCH ×5 (20:07)
--- NOTE | 2018-07-25 20:10 | NUR ---
IV INFILTRATED. WILL INSERT A NEW ONE. WANTS TO GO HOME TOMORROW, DR. GALLARDO SPOKE WITH PATIENT AND ANSWERS ALL QUESTIONS.
--- NOTE | 2018-07-25 21:30 | NUR ---
KEEPS ON GOING OUT OF THE ROOM, DOES NOT WANT ANY MORE IV TO BE INSERTED, STATED I'VE BEEN POKED A LOT IN MY RIGHT ARM, CONVINCED THAT WE WILL JUST TRY ONE. EXPLAINED SHE NEEDS THE ANTIBIOTIC AND MVI BAG.
--- NOTE | 2018-07-25 23:50 | NUR ---
NEW IV LINE INSERTED BY CHARGE NURSE MARLYS AT THE LEFT FOREARM G24.
[2018-07-26] VITALS: BP 130/91
--- NOTE | 2018-07-26 01:15 | NUR ---
ASSISTED TO BR TO VOID, MVI BAG INFUSING. BACK TO BED AFTER VOIDING. SAFETY MAINTAINED.
[2018-07-26] MEDS: HYDROcodone/APAP 5/325 MG 1 TAB TAB PO PRN ×2 (01:53→15:29)
--- NOTE | 2018-07-26 01:59 | NUR ---
MEDICATED WITH NORCO REQUESTED BY PT. C/O SHOULDER BACK CHRONIC PAIN. VERBALIZES NEEDS WELL IN GUAMANIAN. ROM X4.
[2018-07-26] MEDS: chlordiazePOXIDE 25 MG CAP PO SCH ×2 (05:08→13:17)
--- NOTE | 2018-07-26 05:08 | NUR ---
AWAKE, RESTING IN BED, MEDICATED WITH LIBRIUM ORDERED. ADVISED TO GO BACK TO SLEEP.
[2018-07-26] MEDS: SODIUM CHLORIDE FLUSH 10 ML SYR IVF SCH ×2 (05:15→13:17)
--- NOTE | 2018-07-26 06:35 | NUR ---
STILL SLEEPING COMFORTABLY IN BED. CONDITION REMAIN STABLE. WILL ENDORSE TO AM SHIFT NURSE FOR CONTINUITY OF CARE.
--- NOTE | 2018-07-26 07:10 | NUR ---
ENDORSED TO AM SHIFT NURSE FOR CONTINUITY OF CARE.
--- NOTE | 2018-07-26 07:14 | NUR ---
RECEIVED BEDSIDE REPORT FROM MANAGER CREDIT COLLECTIONS NURSE ORI FOR CONTINUITY OF CARE. PATIENT WAS AWAKE AND SITTING UP ON EDGE OF BED. PATIENT IS AOX4. PATIENT DENIED PAIN AND SOB. RESPIRATION EVEN AND UNLABORED ON RA. NO SIGNS OF DISTRESS NOTED. IV ON R WRIST 24G, NOT INFUSING AT THIS TIME. SKIN INTACT AND CLEAN. PATIENT IS ABLE TO AMBULATE WITH STANDBY ASSISTANCE. DISCUSSED PLAN OF CARE WITH PATIENT AND PATIENT VERBALIZED UNDERSTANDING. SAFETY PRECAUTION IN PLACE. BED IN LOW POSITION AND CALL LIGHT WITHIN REACH. INSTRUCTED PATIENT TO USE THE CALL LIGHT FOR ANY ASSISTANCE, AND PATIENT VERBALIZED UNDERSTANDING.
[2018-07-26 07:50] LABS: BASOPHILS # (AUTO) 0.1 K/uL (0.00-0.22); BASOPHILS % (AUTO) 0.9 % (0.0-2.0); EOSINOPHILS # (AUTO) 0.3 K/uL (0-0.4); EOSINOPHILS % (AUTO) 5.1 % (0.0-4.0); HEMATOCRIT 30.5 % (36-48); LYMPHOCYTES # (AUTO) 2.5 K/uL (2.5-16.5); LYMPHOCYTES % (AUTO) 38.2 % (20.5-51.1); MEAN CORPUSCULAR HEMOGLOBIN 29 pg (27-31); MEAN CORPUSCULAR HGB CONC 33 g/dL (33-37); MEAN CORPUSCULAR VOLUME 89.6 fL (80-94); MONOCYTES # (AUTO) 0.4 K/uL (0.8-1.0); MONOCYTES % (AUTO) 5.9 % (1.7-9.3); NEUTROPHILS # (AUTO) 3.3 K/uL (1.8-7.7); NEUTROPHILS % (AUTO) 49.9 % (42.2-75.2); PLATELET COUNT (AUTO) 314 K/uL (140-450); RED CELL DISTRIBUTION WIDTH 15.6 % (11.6-13.7); WHITE BLOOD COUNT (AUTO) 6.6 K/uL (4.8-10.8)
[2018-07-26 08:00] VITALS: BP 128/61
[2018-07-26 08:05] LABS: ANION GAP 12.3 (8-16); CARBON DIOXIDE 25.9 mmol/L (21-32); CHLORIDE 106 mmol/L (98-107); GLUCOSE 87 mg/dL (74-106); POTASSIUM 4.2 mmol/L (3.5-5.1); SODIUM SERUM 140 mmol/L (136-145); UREA NITROGEN, BLOOD 16 mg/dL (7-18)
[2018-07-26 08:19] LABS: MAGNESIUM 2.3 mg/dL (1.8-2.4)
[2018-07-26] MEDS ORDERED: LISINOPRIL 5 MG TAB PO SCH (09:00)
[2018-07-26] MEDS: LACTOBACILLUS RHAMNOSUS GG 1 EACH CAP PO SCH (10:01)
[2018-07-26] MEDS: HYDROCHLOROTHIAZIDE 25 MG TAB PO SCH (10:01)
[2018-07-26] MEDS: NORTRIPTYLINE 10 MG CAP PO SCH (10:01)
--- NOTE | 2018-07-26 10:04 | NUR ---
PATIENT CAME BACK FROM WALKING WITH PT. ADMINISTERED MEDS PER MD ORDER, PATIENT TOLERATED WELL. PATIENT IS WATCHING TV ON BED AT THIS TIME. DENIES PAIN AND SOB. NO SIGNS OF DISTRESS NOTED. BED IN LOW POSITION AND CALL LIGHT WITHIN REACH. INSTRUCTED PATIENT TO USE THE CALL LIGHT FOR ANY ASSISTANCE AND PATIENT WAS AWARE.
[2018-07-26] MEDS ORDERED: LISI-424 PO (11:04)
--- NOTE | 2018-07-26 11:15 | NUR ---
PATIENT IS AWAKE AND DOING HER CROSSWORDS BOOK ON BED. KAYLYNN DIZZINESS, PAIN AND SOB. NO SIGNS OF DISTRESS NOTED. SAFETY MEASURES IN PLACE. BED IN LOW POSITION AND CALL LIGHT WITHIN REACH.
--- NOTE | 2018-07-26 13:20 | NUR ---
ADMINISTERED MED PER MD ORDER, PATIENT TOLERATED WELL. PATIENT IS AWAKE AND SITTING UP ON BED. DENIES PAIN AND SOB. NO SIGNS OF DISTRESS NOTED. SAFETY MEASURES IN PLACE.
--- NOTE | 2018-07-26 13:21 | NUR ---
DC PLANNING: NÉSTRO SPOKE WITH MAYNOR ( CASH SPECIALIST @ [facility]) @ . PATIENT IS ACCEPTED AND ROOM NUMBER IS AT 107A. WOULD PREFER PATIENT TO BE DC AT 4PM. MAYNOR HAD AUTHORIZED/APPROVED AMUBULANCE TRANSPORTATION TO BE PAID BY [facility]. S TRANSPORTATION HAS BEEN SETUP WITH [facility] @ SPOKE WITH [employer] ( DISPATCH) AND TIRE BUILDING SUPERVISOR TIME IS AT 3:30-4:30PM. Addendum: 07/26/18 at 1435 by Renay Gómez CM CM ATTEMPTED TO CONTACT PATIENT'S DAUGHTER (LISA DILLON) @ . HOWEVER, WAS UNAVAILABLE. CM LEFT A VOICE MESSAGE AND CALL BACK NUMBER.
--- NOTE | 2018-07-26 14:50 | NUR ---
RECEIVED A CALL FROM ASIM IN [facility] AND ASKING IS PATIENT GOING TO [facility] SINCE PATIENT'S SON AND PATIENT HAS BEEN REQUEST TO GO TO THE FACILITY. INFORMED ASIM THAT I WILL CLARIFY WITH DRY KILN BURNER AND DRY KILN BURNER WILL CONTACT HER SHORTLY. NOTIFIED DRY KILN BURNER ON REGARDS INFORMATION AND PER DRY KILN BURNER VICKI, SHE WILL CONTACT [facility] TO ARRANGE A BED.
--- NOTE | 2018-07-26 15:29 | NUR ---
PATIENT COMPLAINED OF 6/10 BACK PAIN AND SHE FEELS RESTLESS. ADMINISTERED PRN PAIN MED, PATIENT TOLERATED WELL. SAFETY MEASURES IN PLACE. BED IN LOW POSITION AND CALL LIGHT WITHIN REACH.
--- NOTE | 2018-07-26 15:31 | NUR ---
CANCELLED DISCHARGE TO [facility]. FAMILY WANTED [facility]. SPOKE WITH ASIM ( BIOLOGICAL TECHNICIAN @ [facility]) @ . PATIENT IS ACCEPTED AND ROOM NUMBER IS 6B. TRANSPORTATION HAS BEEN SET UP WITH [facility] [employer] [facility] @ . SPOKE WITH BOBBY AND CURER FOAM RUBBER TIME IS AT 6:30PM. ASIM ( BIOLOGICAL TECHNICIAN @ [facility] ) HAS APPROVED/ [facility] WILL PAY FOR TRANSPORTATION. CM MADE NURSE AWARE.
--- NOTE | 2018-07-26 15:46 | NUR ---
CALLED SHWETHA MCGRAW AND GAVE FULL REPORT TO CHRISTIANNE Barba RN. ANSWERED ALL CHRISTIANNE 'S QUESTIONS AND INFORMED JOSE THAT PATIENT WILL BE METAL MOVER FROM THE HOSPITAL AT 1830 AND PLACEMENT IN ROOM 6B. CHRISTIANNE VERBALIZED UNDERSTANDING. LEFT CALL BACK NUMBER FOR CHRISTIANNE IF SHE HAS ANY QUESTION SHE MAY CALL BACK FOR MORE INFOR.
--- NOTE | 2018-07-26 15:56 | NUR ---
CALLED PATIENT'S SON LISA DILLON 3X AND NO ONE ANSWER, LEFT A VOICE MESSAGE THAT PATIENT WILL BE TRANSFERRED THIS EVENING TO [facility] AND A CALL BACK # FOR RETURN CALL.
[2018-07-26 16:00] VITALS: BP 111/63
--- NOTE | 2018-07-26 17:25 | NUR ---
PATIENT IS EATING DINNER. NO SIGNS OF DISTRESS NOTED. SAFETY MEASURES IN PLACE.
--- NOTE | 2018-07-26 18:15 | NUR ---
DISCHARGE INSTRUCTION PROVIDED TO PATIENT. EDUCATED PATIENT ON DISEASE MANAGEMENT, SIGNS AND SYMPTOMS, MEDICATIONS REGIMEN, SIDE EFFECTS. ANSWERED ALL PATIENT'S QUESTIONS. D/C IV AND CANNULA INTACT, NO BLEEDING AT IV SITE. PATIENT TOOK ALL HER BELONGINGS AND DISCHARGE PACKET. REMOVED ALL ARM BANDS. PATIENT IS TRANSFER AT THIS TIME WITH [facility] IN A STABLE CONDITION.
[2018-07-27 06:17] LABS: FERRITIN 134 ng/mL (15-150); FOLIC ACID > 20.00 ng/mL (>3.0)
== END 2018-07-26 18:15 | DRG 73 ==
LOC: MED 15:29 → MTU 18:20
PROVIDERS: ADMIT General Practice; ATTEND General Practice
DX: G90.8 Other disorders of autonomic nervous system (principal); G92 Toxic encephalopathy; N39.0 Urinary tract infection, site not specified; F10.129 Alcohol abuse with intoxication, unspecified; Y90.2 Blood alcohol level of 40-59 mg/100 ml; I10 Essential (primary) hypertension; E11.9 Type 2 diabetes mellitus without complications; M19.90 Unspecified osteoarthritis, unspecified site; M41.9 Scoliosis, unspecified; J44.9 Chronic obstructive pulmonary disease, unspecified; E86.0 Dehydration; E86.1 Hypovolemia; K21.9 Gastro-esophageal reflux disease without esophagitis; E11.649 Type 2 diabetes mellitus with hypoglycemia without coma; D64.9 Anemia, unspecified; I70.0 Atherosclerosis of aorta; Z76.5 Malingerer [conscious simulation]; Z91.19 Patient's noncompliance with other medical treatment and regimen
CPT/HCPCS: 36415; 70450; 71045; 76705; 80048; 80053; 80305; 81001; 82140; 82150; 82306; 82607; 82728; 82746; 82948; 83036; 83540; 83605; 83690; 83735; 83880; 84100; 84436; 84443; 84484; 85025; 85045; 85610; 85730; 87040; 87081; 87086; 93880; 94640; 96365; 96375; 97110; 97116; 97161-GP; 97530; 99285; A9153; G0482; J0696; J1644; J2543; J3411; J3475; J3490; J7030; J7060; J7620; Q0092

== ENCOUNTER 2020-10-30 11:06 | Inpatient (IN) | payer OTHER, SELFPAY ==
[~2020-10-30] VITALS: Ht 157.5 cm; Wt 57.6 kg
[~2020-10-30 11:06] MED LIST changes: +ACET-1182 PO; +ACET-9531 PO; +APR10 PO; +DEXT5SYR3 PO; +DOCU-299 PO; +LISI20TA29 PO; +MECL-231 PO; -MECL-272 PO; +METO25TA PO; +NICO14TD30 TD; +ONDA2SOL45 IM/IVP; -ORE25 PO; +PANT40EC56 PO; -PUL.25N INH
[2020-10-30 11:09] VITALS: BP 111/62
--- NOTE | 2020-10-30 11:14 | NUR ---
PT TAKEN TO BED 4 VIA MARK
--- NOTE | 2020-10-30 11:16 | NUR ---
DR. PHAN BEDSIDE EVALUATING PT
[2020-10-30] MEDS ORDERED: MECLIZINE 25 MG TAB PO ONE (11:30)
--- NOTE | 2020-10-30 11:57 | NUR ---
74 Y/O F BIBA FROM HOME, PATIENT PRESENTS TO ED WITH C/O FEELING DIZZY AND GENERAL WEAKNESS AT THIS TIME. ARM STATED PT WAS FOUND ON GROUND POST POSSIBLE SYNCOPE AFTER FAMILY STATES THEY SAW PT FALL OT GROUND. PT STATES SHE IS NOT AWARE OF HOW SHE ENDED UP ON FLOOR. DENIES N/V/D; SKIN IS PINK/COOL/DRY; AAOX4 AMBULATES WITH ASSIST; LUNGS CLEAR BL; HR EVEN AND REGULAR; PT DENIES ANY FEVER, CP, SOB, OR COUGH AT THIS TIME; PATIENT STATES PAIN OF 06/10 AT THIS TIME; VSS; PATIENT POSITIONED FOR COMFORT; HOB ELEVATED; BEDRAILS UP X2; BED DOWN. ER MD MADE AWARE OF PT STATUS. PMH: ANEMIA, FALLING HX, SPENOMEGALY, DRUG INDUCED NEPHROPATHY, DYSPHAGIA, GERD, HTN NKA MED: DENIES
[2020-10-30 12:21] LABS: BASOPHILS % (AUTO) 0.2 % (0.0-2.0); HEMATOCRIT 25.8 % (36-48); HEMOGLOBIN 8.1 g/dL (12.0-16.0); LYMPHOCYTES # (AUTO) 1.4 K/uL (2.5-16.5); LYMPHOCYTES % (AUTO) 10.6 % (20.5-51.1); MEAN CORPUSCULAR HEMOGLOBIN 26 pg (27-31); MEAN CORPUSCULAR HGB CONC 31 g/dL (33-37); MEAN CORPUSCULAR VOLUME 82.3 fL (80-94); MONOCYTES # (AUTO) 0.5 K/uL (0.8-1.0); MONOCYTES % (AUTO) 3.5 % (1.7-9.3); NEUTROPHILS # (AUTO) 11.5 K/uL (1.8-7.7); NEUTROPHILS % (AUTO) 85.7 % (42.2-75.2); PLATELET COUNT (AUTO) 285 K/uL (140-450); RED BLOOD CELL COUNT(AUTO) 3.13 MIL/uL (4.20-5.40); RED CELL DISTRIBUTION WIDTH 16.8 % (11.6-13.7); WHITE BLOOD COUNT (AUTO) 13.5 K/uL (4.8-10.8)
[2020-10-30 12:34] LABS: ALBUMIN 3.3 g/dL (3.4-5.0); ANION GAP 16.7 (8-16); ASPARTATE AMINOTRANSFERASE 8 U/L (15-37); CARBON DIOXIDE 22.2 mmol/L (21-32); CHLORIDE 109 mmol/L (98-107); CREATININE 1.6 mg/dL (0.6-1.3); GLUCOSE 151 mg/dL (74-106); POTASSIUM 4.9 mmol/L (3.5-5.1); SODIUM SERUM 143 mmol/L (136-145); TOTAL BILIRUBIN 0.3 mg/dL (0.0-1.0)
--- NOTE | 2020-10-30 12:38 | NUR ---
PO MEDS GIVEN, IV 20 GA RT HAND DONE. LAB AT BEDSIDE. NSR W/O ECT NOTED.
[2020-10-30 12:39] LABS: UREA NITROGEN, BLOOD 101 mg/dL (7-18)
[2020-10-30] MEDS ORDERED: NACL 0.9% 1,000 ML IV ONE (12:40)
--- NOTE | 2020-10-30 12:47 | NUR ---
X-Ray at bedside.
--- NOTE | 2020-10-30 12:47 | NUR ---
XRAY BEDSIDE WITH PT
[2020-10-30] MEDS ORDERED: POTASSIUM CHLORIDE 40 MEQ, LIDOCAINE MPF 1% 25 MG in NACL 0.9% 250 ML IV PRN (13:45)
[2020-10-30] MEDS ORDERED: ACETAMINOPHEN 325 MG TAB PO PRN (13:45)
[2020-10-30] MEDS ORDERED: MAG SULF 2000 MG/WATER PREMIX 50 ML IV PRN (13:45)
[2020-10-30] MEDS ORDERED: DOCUSATE SODIUM 100 MG GELCAP PO PRN (13:45)
[2020-10-30] MEDS ORDERED: ONDANSETRON 4 MG/2 ML VIAL IM/IVP PRN (13:45)
[2020-10-30] MEDS ORDERED: SODIUM PHOS / POTASSIUM PHOS 1 PKT PDR PO PRN (13:45)
[2020-10-30] MEDS ORDERED: MECLIZINE 25 MG TAB PO PRN (13:50)
--- NOTE | 2020-10-30 14:02 | NUR ---
PT REFUSED URINE STRAIGHT CATH PT STATES SHE WILL NEED ASSISTANCE TO THE BATHROOM FOR URINE SAMPLE. HAT ON TOILET SEAT PT AVOIDED HAT AND HAD BLACK, TARRY STOOL IN TOILET. FILI AND ATTENDING MD MADE AWARE.
[2020-10-30] MEDS: NACL 0.9% 1,000 ML IV SCH (14:07)
[2020-10-30 14:52] LABS: MAGNESIUM 1.8 mg/dL (1.8-2.4)
--- NOTE | 2020-10-30 15:30 | NUR ---
RECEIVED REPORT FROM ER NURSE ANTONIO PATIENT IS ALERT AND ORIENTED, ON CARDIAC DIET, SKIN INTACT WITH CHIEF COMPLAIN OF NEAR SYNCOPAL, GENERALIZED WEAKNESS, DIZZINESS AND EPISODES OF EMESIS, DIAGNOSIS OF UREMIA, LAST BOEL MOVEMENT TODAY 10/30/20 TARRY BLACK AND LOOSE, IV ON THE RIGHT HAND GAUGE 20 WITH NS AT 40 MLS/HR, ANKLE XRAY AND CHEST XRAY DONE, HEAD CT DONE WITH NEGATIVE RESULTS, PT AMBULATES WITH ASSIST.
--- NOTE | 2020-10-30 15:42 | NUR ---
Patient will be admitted to care of ANGELI GARCÍA. Admited to TELEMETRY. Will go to room 108B. Belongings list completed. Report to XIOMARA KHALIL.
[2020-10-30 16:30] VITALS: BP 157/73
--- NOTE | 2020-10-30 17:52 | NUR ---
PT RECEIVED FROM ER AT 1630 IN STABLE CONDITION HELP THE PT TO GET IN THE BED, ALL BELONGINGS GIVEN AND 2 WARM BLANKETS PROVIDED. PT VOIDED ONE TIME DURING THE SHIFT. DENIES PAIN OR DISCOMFORT. NO VISIBLE SON NOTED. MRSA SAMPLE COLLECTED. YELLOW GOWN AND YELLOW SOCKS PROVIDED, CONNECTED TO THE IV. SAFETY MEASURES IN PLACED CALL LIGHT IN REACH WILL CONTINUE TO MONITOR PT.
--- NOTE | 2020-10-30 18:02 | NUR ---
PT IS LAYING IN BED CALL LIGHT IS IN REACH VIVI PAIN AND DISCOMFORT.
--- NOTE | 2020-10-30 18:34 | NUR ---
URINE SPECIMEN COLLECTED AND SENT TO LAB.
--- NOTE | 2020-10-30 19:16 | NUR ---
ENDORSE THE PARTY PLANNER NURSE FOR CONTINUITY OF CARE PT IS STABLE
[2020-10-30 19:24] LABS: APPEARANCE,URINE CLEAR (CLEAR); BILIRUBIN,URINE NEGATIVE (NEGATIVE); BLOOD, URINE 2+ (NEGATIVE); COLOR,URINE YELLOW (YELLOW); LEUKOCYTE ESTERASE ,URINE TRACE (NEGATIVE); NITRITE, URINE NEGATIVE (NEGATIVE); PH,URINE 5.5 (5.0-9.0); UGLUCOSE NEGATIVE (NEGATIVE)
[2020-10-30 19:33] LABS: RBC,URINE 11-20 (MOD) /HPF (0-5); WBC,URINE 0-5 /HPF (0-5)
[2020-10-30 21:27] VITALS: BP 126/83
[2020-10-30] MEDS: MORPHINE SULFATE 2 MG/ML SYR IVP PRN (21:45)
[2020-10-30] MEDS ORDERED: ALBUTEROL SULFATE/IPRATROPIU 3 ML SOL IH PRN (23:00)
[2020-10-30] MEDS: PANTOPRAZOLE 40 MG INJ VIAL IVP SCH (23:39)
[2020-10-30] MEDS ORDERED: cefTRIAXone 1,000 MG VIAL ONE (23:46)
[2020-10-31] VITALS (8 sets, daily range): BP systolic 105–153; BP diastolic 46–87
[2020-10-31 07:05] LABS: ANION GAP 12.9 (8-16); CARBON DIOXIDE 24.2 mmol/L (21-32); CHLORIDE 113 mmol/L (98-107); CREATININE 1.3 mg/dL (0.6-1.3); GLUCOSE 104 mg/dL (74-106); POTASSIUM 4.1 mmol/L (3.5-5.1); SODIUM SERUM 146 mmol/L (136-145)
[2020-10-31 07:13] LABS: UREA NITROGEN, BLOOD 72 mg/dL (7-18)
--- NOTE | 2020-10-31 07:26 | NUR ---
RECEIVED CHANGE OF SHIFT REPORT FROM NIGHT NURSE AT BEDSIDE FOR CONTINUITY OF CARE. REVIEWED AND WILL CONTINUE WITH POC. PT CONDITION IS STABLE AND NURSE REPORTS PT WAS STABLE THROUGHOUT THE NIGHT. PT WAS ASLEEP DURING BEDSIDE REPORT. NIGHT NURSE REPORTS PT IS AA&O X 4 AND AMBULATORY. PT IS ON RA WITH NORMAL UNLABORED BREATHING. PT HAS R-WRIST 24G IV. PT IS O N CARDIAC DIET. LAST REPORTED BM WAS YESTERDAY 10/30. SKIN IS WARM, DRY, AND INTACT.
--- NOTE | 2020-10-31 07:29 | NUR ---
HANDOFF WITH SIMRAN BIANCHI. MAZIN BECERRIL RN
--- NOTE | 2020-10-31 08:02 | NUR ---
PATIENT HAS BEEN SCREENED AND CATEGORIZED LOW NUTRITION RISK. PATIENT WILL BE SEEN WITHIN 7 DAYS OF ADMISSION. 11/06/[address]
[2020-10-31 08:07] LABS: FERRITIN 96 ng/mL (15-150); TRANSFERRIN 219 mg/dL (192-364)
--- NOTE | 2020-10-31 08:40 | NUR ---
RECEIVED CALL FROM LAB REGARDING LOW HBG OF 6.1 AND HCT 19.0. GAS PIT WORKER WILL COME TO BEDSIDE TO REDRAW LABS TO ENSURE ACCURACY.
--- NOTE | 2020-10-31 09:19 | NUR ---
DR. SUH AT BEDSIDE ASSESSING PT. INFORMED HIM OF THE CRITICAL LAB OF HGB 6.1. AUTOMOTIVE GLAZIER AT BEDSIDE REDRAWING LABS. INFORMED DR. SUH OF HGB LEVEL AND HE ORDERED 1 UNIT PRBC IF THE SECOND DRAW STILL COMES BACK AT THAT LEVEL. WILL WAIT FOR RESULT.
[2020-10-31] MEDS: NORTRIPTYLINE 10 MG CAP PO SCH (09:27)
[2020-10-31] MEDS: METOPROLOL 25 MG TAB PO SCH ×2 (09:28→20:08)
[2020-10-31] MEDS: PANTOPRAZOLE 40 MG INJ VIAL IVP SCH (09:28)
[2020-10-31] MEDS: lisinopriL 20 MG TAB PO SCH (09:28)
[2020-10-31 09:29] LABS: BASOPHILS % (AUTO) 0.5 % (0.0-2.0); EOSINOPHILS # (AUTO) 0.1 K/uL (0-0.4); EOSINOPHILS % (AUTO) 1.5 % (0.0-4.0); LYMPHOCYTES # (AUTO) 1.6 K/uL (2.5-16.5); LYMPHOCYTES % (AUTO) 21.5 % (20.5-51.1); MEAN CORPUSCULAR HEMOGLOBIN 26 pg (27-31); MEAN CORPUSCULAR HGB CONC 32 g/dL (33-37); MEAN CORPUSCULAR VOLUME 82.3 fL (80-94); MONOCYTES # (AUTO) 0.3 K/uL (0.8-1.0); MONOCYTES % (AUTO) 4.2 % (1.7-9.3); NEUTROPHILS # (AUTO) 5.2 K/uL (1.8-7.7); NEUTROPHILS % (AUTO) 72.3 % (42.2-75.2); PLATELET COUNT (AUTO) 192 K/uL (140-450); RED BLOOD CELL COUNT(AUTO) 2.29 MIL/uL (4.20-5.40); WHITE BLOOD COUNT (AUTO) 7.3 K/uL (4.8-10.8)
[2020-10-31] MEDS: NICOTINE TRANSD SYS 14 MG/24 HR PATCH TD SCH (09:29)
[2020-10-31 09:32] LABS: HEMATOCRIT 18.9 % (36-48)
--- NOTE | 2020-10-31 09:32 | NUR ---
RECEIVED CALL FROM LAB REGARDING LAB REDRAW. HBG IS 6.0 AND HCT 18.9. MD NOTIFIED. WILL PREPARE FOR BLOOD TRANSFUSION.
--- NOTE | 2020-10-31 09:45 | NUR ---
ADMINISTERED SCHEDULED MEDICATIONS. PT TOLERATED WELL. PT BP 153/66 AND HR 71, WNL FOR ALL MEDICATIONS. PT IS AA&OX4 AND EATING BREAKFAST. PT TOLERATING BREAKFAST WELL. PT DENIES ANY PAIN AT THIS TIME. WILL CONTINUE TO MONITOR FOR ANY CHANGES AND PERFORM FREQ MONITORING.
--- NOTE | 2020-10-31 10:04 | NUR ---
RECEIVED ORDER FROM DR. SUH TO COLLECT OCCULT BLOOD SAMPLE. ORDER WAS PLACED. EDUCATION WAS PROVIDED TO PT AND SHE VERBALIZED UNDERSTANDING.
--- NOTE | 2020-10-31 10:42 | NUR ---
NEW IV PLACED ON THE RIGHT FOREARM 22 GAUGE FOR BLOOD TRANSFUSION PENDING. IV IS PATENT AND FLUSHING WELL.
--- NOTE | 2020-10-31 12:10 | NUR ---
RECEIVED CALL FROM LAB FOR LACTIC ACID LEVEL OF 25.4. MD NOTIFIED VIA TEXT MESSAGE. MD AWARE AND ASKED TO REPEAT LAB DRAW.
--- NOTE | 2020-10-31 12:17 | NUR ---
CALLED LAB TO REDRAW LACTIC ACID STAT. THEY WILL BE HERE SHORTLY TO DRAW LABS.
--- NOTE | 2020-10-31 13:00 | NUR ---
BLOOD BANK CALLED AND THE ONE UNIT OF PRBC IS NOW READY. WILL WAIT FOR DOCTOR AND PATIENT TO SIGN CONSENT PRIOR TO ADMINISTRATION OF BLOOD TRANSFUSION. PT IS STABLE AT THIS TIME. DOES NOT REPORT A BOWEL MOVEMENT TODAY. NO SIGNS OR SYMPTOMS OF BLEEDING. BP IS 105/47 AND HR IS 60. WILL CONTINUE TO MONITOR PT.
[2020-10-31] MEDS: NACL 0.9% 1,000 ML IV SCH (13:03)
--- NOTE | 2020-10-31 14:21 | NUR ---
CALLED FEEDER ASSOCIATE AND INQUIRED ABOUT THE PENDING LACTIC ACID RESULT SINCE IT IS STILL PENDING. SHE STATED THAT THEY DID NOT HAVE THE AGENT TO RUN THE LAB DRAW AND THEY ARE SENDING IT OUT FOR TESTING.
--- NOTE | 2020-10-31 15:00 | NUR ---
CONSENT WAS SIGNED BY BOTH PT AND DR. SUH FOR BLOOD TRANSFUSION. WILL RETRIEVE BLOOD SHORTLY.
--- NOTE | 2020-10-31 15:25 | NUR ---
PRE-TRANSFUSION VITALS BP: 98/41, T:97.3, O2: 94%, RR: 17, AND HR: 68. BLOOD TRANSFUSION 1 UNIT PRBC STARTED. WILL CONTINUE TO MONITOR PT.
[2020-10-31] MEDS: HYDROcodone/APAP 5/325 MG 1 TAB TAB PO PRN (16:46)
--- NOTE | 2020-10-31 17:15 | NUR ---
PT IS UP TO THE RESTROOM. GAIT IS UNSTEADY WITH STANDBY ASSIST. PT'S BLOOD TRANSFUSION IS STILL INFUSING. NO ADVERSE REACTIONS NOTED. BREATHING IS UNLABORED ON RA. PT IS STABLE.
--- NOTE | 2020-10-31 18:05 | NUR ---
BLOOD TRANSFUSION COMPLETED. PT HAD NO REACTIONS THROUGHOUT INFUSION. VITALS STABLE THROUGHOUT INFUSION. LAST SET OF VITALS TEMP: 98.0, BP: 120/50, PULSE: 66, RR: 20, PAIN: 0.
--- NOTE | 2020-10-31 19:25 | NUR ---
GAVE CHANGE OF SHIFT REPORT TO NIGHT NURSE FOR CONTINUITY OF CARE. DISCUSSED POC. PT CONDITION IS STABLE.
[2020-10-31] MEDS: MORPHINE SULFATE 2 MG/ML SYR IVP PRN (20:09)
--- NOTE | 2020-10-31 20:48 | NUR ---
PATIENT SAYS A HALF POINT OF RELIEF OF BACK PAIN 8.5 TO 8 AFTER MORPHINE DOSE. REFUSES TO EAT BECAUSE SHE SAYS THE PAIN IS TOO SEVERE. MAZIN BECERRIL RN
[2020-11-01] VITALS: BP 117/55
[2020-11-01 04:00] VITALS: BP 123/54
[2020-11-01 06:25] LABS: ANION GAP 15.4 (8-16); CARBON DIOXIDE 23.5 mmol/L (21-32); CHLORIDE 110 mmol/L (98-107); CREATININE 1.2 mg/dL (0.6-1.3); GLUCOSE 92 mg/dL (74-106); POTASSIUM 3.9 mmol/L (3.5-5.1); SODIUM SERUM 145 mmol/L (136-145)
[2020-11-01 06:45] LABS: UREA NITROGEN, BLOOD 47 mg/dL (7-18)
[2020-11-01 06:56] LABS: BASOPHILS # (AUTO) 0.1 K/uL (0.00-0.22); BASOPHILS % (AUTO) 0.8 % (0.0-2.0); EOSINOPHILS # (AUTO) 0.2 K/uL (0-0.4); EOSINOPHILS % (AUTO) 3.3 % (0.0-4.0); HEMATOCRIT 20.7 % (36-48); LYMPHOCYTES # (AUTO) 2.5 K/uL (2.5-16.5); LYMPHOCYTES % (AUTO) 38.6 % (20.5-51.1); MEAN CORPUSCULAR HEMOGLOBIN 27 pg (27-31); MEAN CORPUSCULAR HGB CONC 32 g/dL (33-37); MEAN CORPUSCULAR VOLUME 83.8 fL (80-94); MONOCYTES # (AUTO) 0.3 K/uL (0.8-1.0); MONOCYTES % (AUTO) 5.1 % (1.7-9.3); NEUTROPHILS # (AUTO) 3.4 K/uL (1.8-7.7); NEUTROPHILS % (AUTO) 52.2 % (42.2-75.2); PLATELET COUNT (AUTO) 180 K/uL (140-450); RED BLOOD CELL COUNT(AUTO) 2.47 MIL/uL (4.20-5.40); RED CELL DISTRIBUTION WIDTH 16.8 % (11.6-13.7); WHITE BLOOD COUNT (AUTO) 6.5 K/uL (4.8-10.8)
--- NOTE | 2020-11-01 07:13 | NUR ---
PAGE TO DOCTOR ANGELI PATIENT IS REQUESTING TO LEAVE AND SMOKE CIGARETTES AGAINST MEDICAL ADVICE. MAZIN BECERRIL RN
--- NOTE | 2020-11-01 07:15 | NUR ---
HANDOFF REPORT WITH SIMRAN BIANCHI. MAZIN BECERRIL RN
--- NOTE | 2020-11-01 07:26 | NUR ---
RECEIVED REPORT FROM DISBURSEMENT CLERK NURSE AT BEDSIDE FOR CONTINUITY OF CARE. REVIEWED AND WILL CONTINUE WITH POC. PT IS AWAKE AND AMBULATORY, CONDITION IS STABLE, PT DENIES DISTRESS OR PAIN. SHE IS AA&OX4. PT ON RA WITH NORMAL UNLABORED BREATHING. PT REMOVED IV, NIGHT NURSE IS PLACING NEW IV. SKIN IS WARM, DRY, AND INTACT. WILL PERFORM FREQ MONITORING.
--- NOTE | 2020-11-01 07:48 | NUR ---
NIGHT NURSE PLACED 20G IV IN PT R-FOREARM. VERIFIED PATENCY WITH IV FLUSH.
[2020-11-01 08:00] VITALS: BP 111/55
[2020-11-01] MEDS: PANTOPRAZOLE 40 MG INJ VIAL IVP SCH (08:31)
[2020-11-01] MEDS: MORPHINE SULFATE 2 MG/ML SYR IVP PRN ×2 (08:31→21:30)
--- NOTE | 2020-11-01 08:31 | NUR ---
PT STATES SHE HAS PAIN IN HER BACK AT A SCALE OF 8/10. PT STATES THE PAIN ACHING. PT WAS GIVEN MORPHINE FOR PAIN ORDERED. BP WAS 111/55 PRIOR TO ADMINISTRATION OF MEDICATION. WILL MONITOR FOR PAIN.
[2020-11-01] MEDS: NICOTINE TRANSD SYS 14 MG/24 HR PATCH TD SCH (08:32)
[2020-11-01] MEDS: NORTRIPTYLINE 10 MG CAP PO SCH (08:32)
[2020-11-01] MEDS: lisinopriL 20 MG TAB PO SCH (08:33)
[2020-11-01] MEDS: METOPROLOL 25 MG TAB PO SCH ×2 (08:33→21:27)
[2020-11-01 08:52] LABS: HEMOGLOBIN 6.7 g/dL (12.0-16.0)
--- NOTE | 2020-11-01 09:04 | NUR ---
SPOKE TO DR. CASTILLO AND REPORTED LOW H&H; HBG-6.7 AND HCT-20.7. ORDERED 1 UNIT PRBC.
--- NOTE | 2020-11-01 09:30 | NUR ---
PERFORMED FREQ CHECKS. PT VERBALIZES WANTING TO GO OUTSIDE TO SMOKE A CIGARETTE. GAVE PT TEACHING REGARDING SMOKING CESSATION AND SAFETY REGARDING GOING OUTSIDE WHILE UNSTABLE. PT VERBALIZED UNDERSTANDING. WILL CONTINUE WITH FREQ CHECKS.
--- NOTE | 2020-11-01 10:13 | NUR ---
TIME BROKER CALLED FROM BLOOD BANK AND STATED THAT ONE UNIT OF BLOOD IS READY FOR THE PT. WILL ADMINISTER SHORTLY.
--- NOTE | 2020-11-01 10:30 | NUR ---
ROUNDED ON PT. SHE IS AWAKE AND ALERT. SITTING UP IN BED WATCHING TV. NO DISTRESS NOTED. WILL CONTINUE TO MONITOR.
--- NOTE | 2020-11-01 11:22 | NUR ---
RECEIVED A CALL FROM LAB REGARDING LACTIC ACID RE-DRAW LEVEL OF 14. WILL NOTIFY
--- NOTE | 2020-11-01 11:30 | NUR ---
PERFORMED FREQ CHECKS. INFORMED PT OF LOW HBG AND HCT AND THAT SHE WILL NEED TO HAVE A BLOOD TRANSFUSION. PT VERBALIZED UNDERSTANDING AND AGREED TO PROCEDURE. WILL PREPARE FOR INFUSION.
--- NOTE | 2020-11-01 11:38 | NUR ---
MESSAGED DR. CASTILLO ABOUT LACTIC ACID REDRAW RESULT OF 14. WILL AWAIT ORDERS.
[2020-11-01 12:00] VITALS: BP 127/59
--- NOTE | 2020-11-01 12:15 | NUR ---
BLOOD TRANSFUSION, ON UNIT PRBC, WAS STARTED. EDUCATION WAS PROVIDED TO PT AND SHE VERBALIZED UNDERSTANDING. VS ARE STABLE AT THIS TIME. WILL CONTINUE TO MONITOR. Addendum: 11/01/20 at 1404 by Aleta Cerrato RN ONE UNIT PRBC
[2020-11-01] MEDS: NACL 0.9% 1,000 ML IV SCH (12:16)
--- NOTE | 2020-11-01 13:35 | NUR ---
PERFORMED FREQ CHECK. PT IS TRANSFUSING BLOOD. PT CONDITION IS STABLE WITH NO REACTION NOTED. PT REPORTS NO REACTION SYMPTOMS. WILL CONTINUE TO MONITOR.
--- NOTE | 2020-11-01 14:04 | NUR ---
BLOOD TRANSFUSION IS STILL INFUSING. NO SIGNS OR SYMPTOMS OF ADVERSE REACTIONS. PT IS TOLERATING IT WELL. SHE IS SITTING UP IN BED, WATCHING TV. DENIES ANY PAIN. NO RESPIRATORY DISTRESS NOTED ON RA. PT IS STABLE.
--- NOTE | 2020-11-01 15:20 | NUR ---
BLOOD TRANSFUSION IS FINISHED. NS IS BEING FLUSHED THROUGH THE IV VIA IV PUMP. NO ADVERSE REACTIONS OCCURRED DURING OR AFTER INFUSION. PT IS STABLE AT THIS TIME. VS ARE STABLE. BREATHING IS UNLABORED ON RA. PT IS UP TO THE RESTROOM WITH STANDBY ASSIST. WILL CONTINUE TO MONITOR PT.
--- NOTE | 2020-11-01 15:25 | NUR ---
PT DENIES ANY REACTIONS DURING TRANSFUSION AND VITALS WERE STABLE THROUGHOUT TRANSFUSION. NO TRANSFUSION RXN NOTED
[2020-11-01 16:00] VITALS: BP 129/67
--- NOTE | 2020-11-01 16:22 | NUR ---
RECEIVED CALL FROM [place] FROM [employer] REGARDING DISCHARGE PLANNING. HOSPICE WILL ARRIVE TOMORROW SOMETIME BETWEEN 8:30 AND 9:30 TO DISCUSS TRANSPORTATION SERVICES AND PLANNING. Addendum: 11/01/20 at 1844 by Raquel Rojas RN RN DISREGARD. WRONG PATIENT.
--- NOTE | 2020-11-01 17:30 | NUR ---
PERFORMED FREQ ROUNDING. PT ASKED FOR MARIO CRACKERS AND COFFEE. PT DENIES PAIN AND DISCOMFORT AT THIS TIME. WILL CONTINUE MONITORING.
--- NOTE | 2020-11-01 18:28 | NUR ---
PT COMPLAINING OF EAR PAIN 3/10, ADMINISTERED TYLENOL PRN. PT TOLERATED WELL. WILL REASSESS IN 1 HOUR.
--- NOTE | 2020-11-01 19:13 | NUR ---
GAVE CHANGE OF SHIFT REPORT TO PM NURSE FOR CONTINUITY OF CARE. POC DISCUSSED. PT CONDITION IS STABLE.
[2020-11-01 22:51] LABS: HEMATOCRIT 31.8 % (36-48); HEMOGLOBIN 10.3 g/dL (12.0-16.0)
[2020-11-02 01:18] VITALS: BP 157/69
[2020-11-02 04:49] VITALS: BP 146/62
[2020-11-02 05:58] LABS: BASOPHILS % (AUTO) 0.5 % (0.0-2.0); EOSINOPHILS # (AUTO) 0.2 K/uL (0-0.4); EOSINOPHILS % (AUTO) 3.3 % (0.0-4.0); HEMATOCRIT 25.6 % (36-48); HEMOGLOBIN 8.4 g/dL (12.0-16.0); LYMPHOCYTES # (AUTO) 2.1 K/uL (2.5-16.5); LYMPHOCYTES % (AUTO) 30.8 % (20.5-51.1); MEAN CORPUSCULAR HEMOGLOBIN 28 pg (27-31); MEAN CORPUSCULAR HGB CONC 33 g/dL (33-37); MEAN CORPUSCULAR VOLUME 84.6 fL (80-94); MONOCYTES # (AUTO) 0.4 K/uL (0.8-1.0); MONOCYTES % (AUTO) 5.2 % (1.7-9.3); NEUTROPHILS # (AUTO) 4.1 K/uL (1.8-7.7); NEUTROPHILS % (AUTO) 60.2 % (42.2-75.2); PLATELET COUNT (AUTO) 198 K/uL (140-450); RED BLOOD CELL COUNT(AUTO) 3.02 MIL/uL (4.20-5.40); RED CELL DISTRIBUTION WIDTH 16.3 % (11.6-13.7); WHITE BLOOD COUNT (AUTO) 6.9 K/uL (4.8-10.8)
[2020-11-02 06:35] LABS: ANION GAP 12.5 (8-16); CARBON DIOXIDE 23.6 mmol/L (21-32); CHLORIDE 110 mmol/L (98-107); CREATININE 1.1 mg/dL (0.6-1.3); GLUCOSE 95 mg/dL (74-106); POTASSIUM 4.1 mmol/L (3.5-5.1); SODIUM SERUM 142 mmol/L (136-145); UREA NITROGEN, BLOOD 30 mg/dL (7-18)
--- NOTE | 2020-11-02 07:12 | NUR ---
HANDOFF WITH SIMRAN MAY. MAZIN BECERRIL RN
--- NOTE | 2020-11-02 07:15 | NUR ---
RECEIVED BEDSIDE REPORT FROM AUTO BODY STRAIGHTENER NURSE FOR CONTINUITY OF CARE. PT IS AWAKE. PT IS A&OX. E. IV ON RIGHT FOREARM 20 G. NO SIGN OG DISTRESS NOTED, SAFETY MEASURES ARE IN PLACE. CALLS LIGHT WITHIN REACH
[2020-11-02 08:00] VITALS: BP 139/61
[2020-11-02] MEDS: NICOTINE TRANSD SYS 14 MG/24 HR PATCH TD SCH (09:30)
[2020-11-02] MEDS: NORTRIPTYLINE 10 MG CAP PO SCH (09:30)
[2020-11-02] MEDS: PANTOPRAZOLE 40 MG INJ VIAL IVP SCH ×2 (09:30→20:39)
[2020-11-02] MEDS: METOPROLOL 25 MG TAB PO SCH ×2 (09:30→20:42)
[2020-11-02] MEDS: lisinopriL 20 MG TAB PO SCH (09:30)
--- NOTE | 2020-11-02 09:30 | NUR ---
PT SITTING ON BED NO COMPLAINS, MEDICATION ADMINISTRATED ORDER, PT TOLERATE MEDS WELL. BREATHING EVEN UNLABORED , CALLS LIGHT WITHIN REACH, SAEFTY MEASURES ON PLACE
--- NOTE | 2020-11-02 11:45 | NUR ---
PATIENT AWAKE AND ALERT. PATIENT HAS EPISODE OF CONFUSION. NO ACUTE DISTRESS NOTED. ALL SAFETY MEASURES IN PLACE. CALL LIGHT WITHIN REACH. WILL CONTINUE TO MONITOR.
[2020-11-02] MEDS: NACL 0.9% 1,000 ML IV SCH (13:45)
[2020-11-02] MEDS: HYDROcodone/APAP 5/325 MG 1 TAB TAB PO PRN (14:57)
--- NOTE | 2020-11-02 14:57 | NUR ---
PATIENT CHANGED HER MIND ON WANTING TO TAKE MORPHINE 1 MG. PATIENT REQUEST NORCO. THE REST OF MORPHINE WASTED WITH SECOND NURSE. PHARMACY NOTIFIED.
--- NOTE | 2020-11-02 14:57 | NUR ---
PATIENT AWAKE AND ALERT. BREATHING EVEN AND UNLABORED. PATIENT COMPLAIN OF TONGUE PAIN. PAIN MEDICATION GIVE. ALL SAFETY MEASURES IN PLACE. CALL LIGHT WITHIN REACH. WILL CONTINUE TO MONITOR.
--- NOTE | 2020-11-02 15:38 | NUR ---
PER DR. ROJAS PATIENT TO BE ON PROTONIX 40 IVP BID AND OMEPRAZOLE 40 PO BID, OK FOR FULL LIQUID DIET AND NPO AT MIDNIGHT
--- NOTE | 2020-11-02 16:04 | NUR ---
NOTIFIED BY PHARMACY THAT THEY DO NOT CARRY OMEPRAZOLE. NOTIFIED DR. ROJAS PENDING FURTHER ORDERS.
--- NOTE | 2020-11-02 16:14 | NUR ---
DC PLANNING: CM SPOKE WITH ISABEL FROM [facility] ([phone]). PATIENT HAS BEEN ON SERVICE WITH THEM SINCE SEPTEMBER 21 OF THIS YEAR FOR SN, PT AND OT. PATIENT WAS REFERRED TO THEM BY GEORGE KLEIN, HARRY WAS UNCLEAR ABOUT THE PATIENTS FUNCTIONAL STATUS OR LIVING SITUATION. CM WILL FOLLOW FOR NEEDS.
--- NOTE | 2020-11-02 17:19 | NUR ---
PATIENT AWAKE AND ALERT. PATIENT CONTINUES TO COME IN AND OUT OF ROOM. PATIENT REORIENTATED TO STAY IN ROOM.PATIENT VERBALIZE UNDERSTANDING. ALL SAFETY MEASURES IN PLACE. CALL LIGHT WITHIN REACH WILL CONTINUE TO MONITOR.
--- NOTE | 2020-11-02 19:15 | NUR ---
ENDORSED TO VP TALENT MANAGEMENT NURSE FOR CONTINUITY OF CARE. PATIENT STABLE. ALL SAFETY MEASURES IN PLACE. CALL LIGHT WITHIN REACH.
[2020-11-02 20:00] VITALS: BP 149/70
[2020-11-02] MEDS: MORPHINE SULFATE 2 MG/ML SYR IVP PRN (20:42)
--- NOTE | 2020-11-03 00:50 | NUR ---
PATIENT REFUSED FURTHER IV SITE ATTEMPTS. DISTRICT MANAGER [employer] SAL[employer] ASSIST OF [employer] AND CHARGE NURSE. MAZIN BECERRIL RN
--- NOTE | 2020-11-03 02:14 | NUR ---
PATIENT ATE A SANDWICH AND DRANK MILK (NPO ORDER). SAYS, " IF I DO NOT HAVE AN IV SITE , PHYSICIAN WILL NOT BE ABLE TO PERFORM PROCEDURE WITHOUT IV SITE." WANTS PHYSICIAN TO KNOW SHE DOES NOT HAVE IV SITE. STILL REFUSES PLACEMENT OF SITE AT THIS TIME. MAZIN BECERRIL RN
--- NOTE | 2020-11-03 03:53 | NUR ---
PATIENT PROVIDED STOOL OB SAMPLE. WILL SEND TO LABORATORY FOR ANALYSIS. MAZIN BECERRIL RN
[2020-11-03 04:00] VITALS: BP 141/71
--- NOTE | 2020-11-03 05:05 | NUR ---
REFUSES MORNING LABORATORY BLOOD WORK DRAW. PATIENT REQUEST TO GO OUTSIDE TO BUY CIGARETTES. CALL TO HER SON TO BRING KEYS SO SHE WILL BE ABLE TO GET INTO HOME IF DISCHARGED. MAZIN BECERRIL RN
[2020-11-03] MEDS ORDERED: fentaNYL citrate 0.05 MG/ML VIAL ONE (07:19)
[2020-11-03] MEDS ORDERED: MIDAZOLAM 5 MG/5 ML VIAL ONE (07:21)
--- NOTE | 2020-11-03 07:29 | NUR ---
HANDOFF WITH SIMRAN HOANG. MAZIN BECERRIL RN
--- NOTE | 2020-11-03 07:30 | NUR ---
RECEIVED BEDSIDE REPORT FROM AUTO CLUTCH SPECIALIST NURSE FOR CONTINUITY OF CARE. PT IS AWAKE. PT IS A&OX4. RESPIRATIONS EVEN AND UNLABORED ON ROOM AIR. SKIN IS INTACT, WARM AND DRY. IV ON RIGHT FOREARM 20 G. NO SIGN OF DISTRESS NOTED, PLAN OF CARE DISCUSSED. SAFETY MEASURES ARE IN PLACE. CALLS LIGHT WITHIN REACH.
[2020-11-03 08:00] VITALS: BP 156/65
--- NOTE | 2020-11-03 08:02 | NUR ---
NOTIFIED DR. CHENG THAT PATIENT REFUSED EGD PROCEDURE. IS AWARE AND MENTIONED THAT PATIENT CAN BE DISCHARGE. WILL NOTIFY DR. CASTILLO REGARDING DR. CHENG'S COMMENTS.
[2020-11-03] MEDS: PANTOPRAZOLE 40 MG INJ VIAL IVP SCH (09:00)
[2020-11-03] MEDS: NICOTINE TRANSD SYS 14 MG/24 HR PATCH TD SCH (09:23)
[2020-11-03] MEDS: METOPROLOL 25 MG TAB PO SCH (09:23)
[2020-11-03] MEDS: lisinopriL 20 MG TAB PO SCH (09:23)
[2020-11-03] MEDS: NORTRIPTYLINE 10 MG CAP PO SCH (09:23)
--- NOTE | 2020-11-03 09:38 | NUR ---
ALL SCHEDULE MEDS WAS GIVEN EXCEPT FOR PROTONIX IV DUE TO NO IV ACCESS. NOTIFIED MD AND STATED THAT WE DO NOT HAVE TO GIVE MEDICATION.
[2020-11-03] MEDS ORDERED: METO25TA PO (11:28)
[2020-11-03] MEDS ORDERED: LISI20TA29 PO (11:28)
[2020-11-03] MEDS ORDERED: APR10 PO (11:28)
[2020-11-03] MEDS ORDERED: FERR325E14 PO (11:28)
--- NOTE | 2020-11-03 11:45 | NUR ---
CHECKED ON PATIENT. PATIENT IS STABLE. NO DISTRESS NOTED. WILL CONTINUE TO MONITOR.
[2020-11-03 11:51] VITALS: BP 156/65
--- NOTE | 2020-11-03 13:00 | NUR ---
NOTIFIED PATIENT'S SON THAT PATIENT WILL BE DISCHARGED TODAY. FAMILY WILL PICKED PATIENT UP AT 1800
[2020-11-03] MEDS: NACL 0.9% 1,000 ML IV SCH (13:20)
--- NOTE | 2020-11-03 13:30 | NUR ---
ENDORSED DISCHARGE INSTRUCTIONS TO PATIENT. PATIENT VERBALIZED UNDERSTANDING DOES NOT WANT TO SIGN THE FORMS. SHE REFUSED TO GO HOME TODAY.
[2020-11-03 16:00] VITALS: BP 140/63
[2020-11-03] MEDS: HYDROcodone/APAP 5/325 MG 1 TAB TAB PO PRN (16:28)
--- NOTE | 2020-11-03 16:28 | NUR ---
PATIENT COMPLAINED OF LOWER BACK PAIN 08/16. ADMINISTERED PRN PAIN MEDICATIONS PER MD ORDERED.
--- NOTE | 2020-11-03 16:41 | NUR ---
ENDORSED DISCHARGE INSTRUCTIONS TO PATIENT AGAIN AND PATIENT STILL DOES NOT WANT TO SIGN THE FORMS. NOTIFIED CONSUMER LENDER.
--- NOTE | 2020-11-03 19:30 | NUR ---
DISCHARGED PATIENT OFF THE UNIT. IV AND ID BAND REMOVED. PICKED UP BY SON AT THE FRONT LOBBY. PT WAS STABLE PRIOR TO DISCHARGE.
== END 2020-11-03 19:25 | disposition home or self-care (01) | DRG 871 ==
LOC: MED 11:06 → MMU 13:42 → MTU 15:16
PROVIDERS: ADMIT Hospitalist; ATTEND Hospitalist
PROC: 30233N1 Transfusion of Nonautologous Red Blood Cells into Peripheral Vein, Percutaneous Approach (ICD-10-PCS; principal; 2020-10-31)
DX: A41.9 Sepsis, unspecified organism (principal); G93.41 Metabolic encephalopathy; N17.0 Acute kidney failure with tubular necrosis; N39.0 Urinary tract infection, site not specified; G93.49 Other encephalopathy; J44.9 Chronic obstructive pulmonary disease, unspecified; F17.210 Nicotine dependence, cigarettes, uncomplicated; K21.9 Gastro-esophageal reflux disease without esophagitis; M19.90 Unspecified osteoarthritis, unspecified site; D64.9 Anemia, unspecified; F10.10 Alcohol abuse, uncomplicated; Y90.9 Presence of alcohol in blood, level not specified; G89.29 Other chronic pain; N18.30 Chronic kidney disease, stage 3 unspecified; I12.9 Hypertensive chronic kidney disease with stage 1 through stage 4 chronic kidney disease, or unspecified chronic kidney disease; Z20.822 Contact with and (suspected) exposure to COVID-19
CPT/HCPCS: 36415; 70450; 71045; 73610; 73630; 80048; 80053; 81001; 82140; 82272; 82728; 83540; 83605; 83690; 83735; 83880; 84100; 84484; 85018; 85025; 85045; 86886; 86900; 86901; 86920; 87040; 87081; 87086; 93005; 96360; 96361; 97110; 97112; 97116; 97163-GP; 97530; 99285; C9113; G0482; J0696; J2250; J2270; J3010; J7060; J8597; P9016